=== PATIENT | male | born 1990 | race Caucasian/White ===

== ENCOUNTER 2021-03-15 21:35 | Emergency (ER) | payer OTHER, SELFPAY ==
--- NOTE | ~2021-03-15 | XR_ITS ---
EXAMINATION: RIGHT HAND AND WRIST. CLINICAL INFORMATION: Pain and swelling COMPARISON: None TECHNIQUE: 3 views FINDINGS: There is an old healed fracture right fifth metacarpal. A acute fracture was seen on the previous exam 04/18/2010 noted there is no acute fracture seen involving the fifth metacarpal at this time. No additional bony abnormality seen. There is mild soft tissue swelling along the ulnar aspect of the hand. XR/XR hand wrist RT IMPRESSION: No acute fracture or dislocation. Old healed fifth metacarpal fracture seen with mild soft tissue swelling.
[2021-03-15 21:37] VITALS: BP 148/93; PULSE 90; RESP 16; TEMP 36.8; O2SAT 97; BMI 34.7
--- NOTE | 2021-03-16 00:32 | ED_ITS ---
HPI - Extremity Problem General Chief complaint: Extremity Injury, Upper Stated complaint: hand infection? Time Seen by Provider: 03/16/21 00:12 Source: patient Mode of arrival: ambulatory Limitations: no limitations History of Present Illness HPI Narrative: Patient presents to the ED for right hand pain. Patient states yesterday a stove fell on his right hand and became swollen. Patient states having some abrasions. Patient up-to-date with tetanus. Related Data Previous Rx's Medication Instructions Recorded cephalexin 500 mg capsule 500 mg PO QID #28 cap 03/16/21 doxycycline hyclate 100 mg tablet 100 mg PO BID #14 tab 03/16/21 naproxen 500 mg tablet 500 mg PO BID PRN #20 tab 03/16/21 Allergies Allergy/AdvReac Type Severity Reaction Status Date / Time No Known Allergies Allergy Unverified 03/15/21 21:42 Review of Systems Constitutional: Constitutional: Reports as per HPI and Reports no additional constitutional complaints Eyes: Eyes: Reports as per HPI and Reports no additional eye complaints ENT: Reports system reviewed and no additional complaints, except as documented and Reports as per HPI Cardiovascular: Cardiovascular: Reports as per HPI and Reports no additional cardiovascular complaints Respiratory: Respiratory: Reports as per HPI and Reports no additional respiratory complaints Gastrointestinal: Gastrointestinal: Reports as per HPI and Reports no additional gastrointestinal complaints Genitourinary: Genitourinary: Reports no additional male genitourinary complaints and Reports as per HPI Musculoskeletal: Musculoskeletal: Reports no additional musculoskeletal complaints, Reports as per HPI and Reports arthralgias (Right hand) Neurologic: Reports system reviewed and no additional complaints, except as documented and Reports as per HPI Psychiatric: Psychiatric: Reports no additional psychiatric complaints and Reports as per HPI [facility] Past Medical History Medical History (Updated 03/16/21 @ 00:39 by DARSHAN Morrison) No known health problems Social History Social History Advance Directives: No Advance Directives Information Provided: No Physical Exam Vital Signs: Vital Signs: Last Vital Signs Temp 98.2 F 03/15/21 21:37 Pulse 90 03/15/21 21:37 Resp 16 03/15/21 21:37 BP 148/93 H 03/15/21 21:37 Pulse Ox 97 03/15/21 21:37 Body Mass Index 34.7 Const: General: cooperative, healthy appearing, comfortable, no acute distress, well developed, alert, awake and Physically active Orientation/consciousness: patient oriented x3 HENMT: Head: Yes normal to inspection, Yes No palpable skull fracture present, Yes normocephalic and Yes atraumatic Eyes: General: appearance normal, both eyes and all related structures Neck: Neck: Yes normal visual inspection, Yes full ROM, Yes no lymphadenopathy, Yes no meningeal signs, Yes trachea midline, Yes supple and No tender Chest: Chest palpation & inspection: normal inspection of the chest and normal palpation of entire chest wall Resp: Effort & Inspection: normal respiratory effort and able to speak in complete sentences Cardio: Jugular venous distension: no JVD Heart sounds: S1 normal heart sound present and S2 normal heart sound present GI: Inspection: Yes normal to inspection and No abdominal wall ecchymosis Palpation (GI): Soft to palpation, not firm, nontender and no guarding : General: No CVA tenderness and Yes no CVA tenderness Back/Spine/Pelvis: Back: no CVA tenderness, No CVA tenderness and No back tenderness Skin: General skin exam: no rashes or lesions noted and elasticity normal Neuro: General: patient oriented x3, gait normal, Normal light touch and pain sensation, no meningeal signs, CN's II-XI intact bilaterally and normal sensation to monofilament Extrem: Hand/finger images: 1. Positive for abrasion and swelling with erythema. Patient has complete range of motion of all fingers. Negative for any limitation of extension or flexion. Negative for any swelling or redness of palms. Rest of extremity negative for any swelling or redness. Vascular/motor/neuro exam intact 2. Positive for abrasion and swelling with erythema.Patient has complete range of motion of all fingers. Negative for any limitation of extension or flexion. Negative for any swelling or redness of palms. Rest of extremity negative for any swelling or redness. Vascular/motor/neuro exam intact Psych: Appearance: grossly normal, well kempt and not disheveled Course Course Course Narrative: Patient was sent for an x-ray Reevaluation(s) Reevaluation #1: Hand x-ray negative for any fractures. Not suspecting ten osynovitis or DVT. Not Suspecting lymphangitis. Negative for red streaks. Right upper extremity is not swollen except area of erythema near knuckles. Patient will be discharged with antibiotics and educated on warm compress. Contusion with mild cellulitis. Time: 00:37 MDM - Extremity (Nontraumatic) MDM Narrative Medical decision making narrative: Contusion/mild cellulitis Discharge Plan Discharge Clinical Impression: Contusion, Cellulitis Patient Disposition: Home, Self-Care Instructions: Cellulitis (ED), Contusion in Adults (ED), Warm Compress or Soak (ED) Additional Instructions: Return to the ED immediately for worsening swelling, inability to move hands, red streaks, worsening redness, fever, chills, arm swelling, chest pain, shortness of breath, bluish discoloration of fingertips, or any other concerning symptoms. Please follow-up with PCP Prescriptions: New cephalexin 500 mg capsule 500 mg PO QID Qty: 28 RF: 0 doxycycline hyclate 100 mg tablet 100 mg PO BID Qty: 14 RF: 0 naproxen 500 mg tablet 500 mg PO BID PRN (Reason: pain) Qty: 20 RF: 0 Stand Alone Forms: Work/School Release Interventions: ED Discharge Assessment Last Done: 03/16/21 00:56 Discharge Date/Time: 03/16/21 00:59 Print Language: Armenian
== END 2021-03-16 00:59 | disposition home or self-care (01) ==
PROVIDERS: Emergency Provider Internal Medicine
DX: S60.221A Contusion of right hand, initial encounter (principal); S60.511A Abrasion of right hand, initial encounter; L03.113 Cellulitis of right upper limb; W20.8XXA Other cause of strike by thrown, projected or falling object, initial encounter; Y93.9 Activity, unspecified; Y92.9 Unspecified place or not applicable; Y99.9 Unspecified external cause status
CPT/HCPCS: 73110; 73130; 99283

== ENCOUNTER 2021-05-28 09:47 | Emergency (ER) | payer OTHER, SELFPAY ==
--- NOTE | ~2021-05-28 | XR_ITS ---
EXAMINATION: XR SHOULDER, LEFT CLINICAL INFORMATION: Pain. COMPARISON: None TECHNIQUE: 3 views of the left shoulder. FINDINGS: The bones and soft tissues are normal. No fracture. Glenohumeral and acromioclavicular alignment is anatomic with normal joint space. No abnormal soft tissue calcifications. XR/XR shoulder LT min 2V IMPRESSION: Normal left shoulder.
[2021-05-28 09:49] VITALS: BP 153/98; PULSE 102; RESP 18; TEMP 36.8; O2SAT 99; BMI 32.7
--- NOTE | 2021-05-28 11:20 | ED.GENADULT ---
HPI - General Adult General Chief complaint: Extremity Injury, Lower Stated complaint: lt shoulder pain Time Seen by Provider: 05/28/21 11:20 Source: patient Mode of arrival: ambulatory Limitations: no limitations History of Present Illness HPI narrative: Three 1-year-old male is here today for complaints of left shoulder pain. 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 Patient reports that he hit his left upper arm and shoulder. Denies hitting head. Denies LOC. patient reports he was trying to work and is unable to have good ROM, pain with passive and active range of motions. Patient does not think that it is dislocated however pain is to his left shoulder left upper back and neck. Patient denies any numbness, tingling, decreased sensation. Patient denies any bruising. Onset (ago): day(s) Location: left (Shoulder) Radiation: non-radiation Severity: moderate Quality: sharp Related Data Previous Rx's Medication Instructions Recorded cephalexin 500 mg capsule 500 mg PO QID #28 cap 03/16/21 doxycycline hyclate 100 mg tablet 100 mg PO BID #14 tab 03/16/21 naproxen 500 mg tablet 500 mg PO BID PRN #20 tab 03/16/21 cyclobenzaprine 10 mg tablet 10 mg PO QAM PRN #5 tab 05/28/21 diazepam 5 mg tablet (Valium) 5 mg PO BEDTIME PRN #5 tab 05/28/21 oxycodone 5 mg tablet 5 mg PO Q4-6H PRN #5 tab 05/28/21 Allergies Allergy/AdvReac Type Severity Reaction Status Date / Time No Known Allergies Allergy Unverified 03/15/21 21:42 Review of Systems Review of Systems: Constitutional : No Weight loss, No Fever, No Chills, No Night Sweats, No Fatigue, No Malaise ENT/Mouth : No Hearing loss, No Ear Pain, No Nasal Congestion, No Sinus Pain, No Hoarseness, No sore throat, No Rhinorrhea, No Swallowing Difficulty Eyes: No Eye Pain, No Swelling, No Redness, No Foreign Body, No Discharge, No Vision Changes Cardiovascular : No Chest Pain, No SOB, No Dyspnea on Exertion, No Orthopnea, No Edema, No Palpitations Respiratory : No Cough, No Sputum, No Wheezing, No Smoke Exposure, No Dyspnea Gastrointestinal : No Nausea, No Vomiting, No Diarrhea, No Constipation, No abdominal Pain, No Hematochezia, No Melena Genitourinary : no irregular bleeding, No Dysuria, No Urinary Frequency, No Hematuria, No Urinary Incontinence, No Urgency, No Flank Pain, No Urinary Flow Changes, No Hesitancy Musculoskeletal : joint pain, shoulder pain, No Myalgias, No Joint Swelling Skin : No Skin Lesions, No rash Neuro : No Weakness, No Numbness, No Paresthesias, No Loss of Consciousness, No Dizziness, No Headache Psych : No Anxiety/Panic, No Depression, No SI/HI/AH/VH, No Social Issues, Yes all other systems are reviewed and are negative PMFSH Past Medical History Medical History (Updated 05/28/21 @ 12:[address] [facility]) No known health problems Social History Social History Advance Directives: No Physical Exam Vital Signs: Vital Signs: Last Vital Signs Temp 98.2 F 05/28/21 09:49 Pulse 102 H 05/28/21 09:49 Resp 18 05/28/21 09:49 BP 153/98 H 05/28/21 09:49 Pulse Ox 99 05/28/21 09:49 Body Mass Index 32.7 Const: General: healthy appearing, no acute distress and well developed Nutritional Appearance: well nourished Orientation/consciousness: patient oriented x3 HENMT: Head: Yes normocephalic and Yes atraumatic Neck: Neck: Yes normal visual inspection, Yes full ROM and Yes trachea midline Thyroid: Thyroid normal Resp: Effort & Inspection: normal respiratory effort and able to speak in complete sentences Auscultation: clear to auscultation bilaterally Cardio: Rate: regular rate Rhythm: regular rhythm GI: Inspection: Yes normal to inspection and No distended Palpation (GI): No hepatosplenomegaly present Auscultation: normal bowel sounds : General: Yes no CVA tenderness Back/Spine/Pelvis: Back: no CVA tenderness Cervical Spine: normal cervical lordosis Thoracic/Lumbar Spine: thoracic and lumbar spine normal to inspection Skin: General skin exam: elasticity normal, turgor normal and dry skin Neuro: General: patient oriented x3 Extrem: Other: Left shoulder pain, tenderness to trapezius muscle. Right upper extremity: normal to inspection, full ROM and normal capillary refill Left upper extremity: normal to inspection, full ROM and normal capillary refill Right lower extremity: normal to inspection, full ROM and normal capillary refill Left lower extremity: normal to inspection, full ROM and normal capillary refill Course Course Course Narrative: 30-year-old male is here today for complaints of left shoulder pain after sustaining fall and hitting his left upper arm. 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 Patient denies hitting had. No paresthesia, no neurological symptoms. Tenderness to left trapezius muscle. Will x-ray and medicate patient for pain. Cyclobenzaprine will be given for muscle tightness. Reevaluation(s) Reevaluation #1: X-ray negative for any acute findings. Patient reports he is feeling better after cyclobenzaprine will send him home with muscle relaxants and oxycodone. He will follow-up with PCP. Patient reports that he does not have a primary care provider and was instructed to call his insurance company to see who is assigned for him. However patient can return to emergency department if he will have worsening symptoms or any other additional concerning symptoms. Discharge Plan Discharge Clinical Impression: Acute shoulder pain Qualifiers: Laterality: left Qualified Code(s): M25.512 - Pain in left shoulder Patient Disposition: Home, Self-Care Instructions: Shoulder Pain (ED) Additional Instructions: You were seen here today for left shoulder pain. Your x-ray is negative for any fracture. You most likely have a muscle sprain. Please take muscle relaxers as ordered. Please do not drink alcohol or and do not drive while taking this medication. You murmur returning to emergency department if your symptoms will get worse or if you experience any additional concerning symptoms. Prescriptions: New cyclobenzaprine 10 mg tablet 10 mg PO QAM PRN (Reason: muscle spasm) Qty: 5 RF: 0 diazepam [Valium] 5 mg tablet 5 mg PO BEDTIME PRN (Reason: muscle spasm) Qty: 5 RF: 0 oxycodone 5 mg tablet 5 mg PO Q4-6H PRN (Reason: pain) Qty: 5 RF: 0 No Action cephalexin 500 mg capsule 500 mg PO QID Qty: 28 RF: 0 doxycycline hyclate 100 mg tablet 100 mg PO BID Qty: 14 RF: 0 naproxen 500 mg tablet 500 mg PO BID PRN (Reason: pain) Qty: 20 RF: 0 Referrals: Jeff Avila MD [Physician] - 2 days Stand Alone Forms: Work/School Release Interventions: ED Discharge Assessment Last Done: 05/28/21 12:29 Discharge Date/Time: 05/28/21 12:32
[2021-05-28] MEDS: Cyclobenzaprine HCl 10 MG TABLET PO (11:41)
== END 2021-05-28 12:32 | disposition home or self-care (01) ==
PROVIDERS: Emergency Provider Emergency Medicine
DX: M25.512 Pain in left shoulder (principal); Z79.899 Other long term (current) drug therapy
CPT/HCPCS: 73030; 99283

== ENCOUNTER 2021-06-22 02:59 | Emergency (ER) | payer OTHER, SELFPAY ==
[2021-06-22 03:06] VITALS: BP 142/89; PULSE 101; RESP 18; TEMP 36.1; O2SAT 98; BMI 33.1
--- NOTE | 2021-06-22 03:44 | ED_ITS ---
HPI - Eye Problem General Chief complaint: Eye Problems Stated complaint: possible contact stuck in eye Time Seen by Provider: 06/22/21 03:44 Source: patient Mode of arrival: ambulatory History of Present Illness HPI Narrative: 30-year-old male who presents with complaints of possible retained contact in the left eye as he states it is very irritated and feels mildly swollen as though ?something is in my eye?. He states that he fell asl eep with his contacts in place and when he awoke he took the contact out of his right eye and then felt as though the contacted left eye got lodged. Related Data Previous Rx's Medication Instructions Recorded cephalexin 500 mg capsule 500 mg PO QID #28 cap 03/16/21 doxycycline hyclate 100 mg tablet 100 mg PO BID #14 tab 03/16/21 naproxen 500 mg tablet 500 mg PO BID PRN #20 tab 03/16/21 cyclobenzaprine 10 mg tablet 10 mg PO QAM PRN #5 tab 05/28/21 diazepam 5 mg tablet (Valium) 5 mg PO BEDTIME PRN #5 tab 05/28/21 oxycodone 5 mg tablet 5 mg PO Q4-6H PRN #5 tab 05/28/21 ketorolac 0.4 % eye drops 1 drp OPHTHALMIC (EYE) QID 2 Days 06/22/21 #5 ml levofloxacin 0.5 % eye drops See Rx Instructions .ROUTE 06/22/21 .COMPLEX #5 ml Allergies Allergy/AdvReac Type Severity Reaction Status Date / Time No Known Allergies Allergy Unverified 03/15/21 21:42 Review of Systems Review of Systems: Pertinent positives and negatives as stated in HPI 10 point review of systems is otherwise negative. PMFSH Past Medical History Source: nursing notes reviewed Medical History No known health problems Social History Social History Advance Directives: No Advance Directives Information Provided: Yes Physical Exam Vital Signs: Vital Signs: Last Vital Signs Temp 97 F 06/22/21 03:06 Pulse 101 H 06/22/21 03:06 Resp 18 06/22/21 03:06 BP 142/89 H 06/22/21 03:06 Pulse Ox 98 06/22/21 03:06 Body Mass Index 33.1 VITAL SIGNS: Reviewed. GENERAL: Well developed, well nourished, in no acute distress. HEAD: Normocephalic/atraumatic EYES: PERRLA, EOMI, significant conjunctival injection to the left eye with some noted left upper lid swelling without erythema or induration. Significant attempts made to evaluate for retained contact without success. OROPHARYNX: no oral lesions noted, posterior pharynx clear LUNGS: Normal breath sounds. SpO2<98> CARDIOVASCULAR: Regular rate and rhythm without noted murmurs ABDOMEN: Soft, non-tender, non-distended with bowel sounds. Course Course Course Narrative: 30-year-old male with history and clinical presentation suggestive of possible corneal abrasion with the contact since no contact was identified after thorough examination. It was explained the patient that there was still the possibility that the contact had been retained and he was strongly encouraged to follow-up with an eye doctor. In the meantime, patient was placed on antibiotics as well as analgesia for the eye. He was discharged home in stable condition. Discharge Plan Discharge Clinical Impression: Corneal abrasion Patient Disposition: Home, Self-Care Instructions: Corneal Abrasion (ED) Additional Instructions: Follow-up with your eye doctor for re-evaluation Prescriptions: New ketorolac 0.4 % drops 1 drp ophthalmic (eye) QID 2 Days Qty: 5 RF: 0 levofloxacin 0.5 % drops See Rx Instructions .ROUTE .COMPLEX Qty: 5 RF: 0 No Action cephalexin 500 mg capsule 500 mg PO QID Qty: 28 RF: 0 doxycycline hyclate 100 mg tablet 100 mg PO BID Qty: 14 RF: 0 naproxen 500 mg tablet 500 mg PO BID PRN (Reason: pain) Qty: 20 RF: 0 cyclobenzaprine 10 mg tablet 10 mg PO QAM PRN (Reason: muscle spasm) Qty: 5 RF: 0 diazepam [Valium] 5 mg tablet 5 mg PO BEDTIME PRN (Reason: muscle spasm) Qty: 5 RF: 0 oxycodone 5 mg tablet 5 mg PO Q4-6H PRN (Reason: pain) Qty: 5 RF: 0 Interventions: ED Discharge Assessment Last Done: 06/22/21 04:01 Discharge Date/Time: 06/22/21 04:02
== END 2021-06-22 04:02 | disposition home or self-care (01) ==
PROVIDERS: Emergency Provider Student in an Organized Health Care Education/Training Program
DX: H18.822 Corneal disorder due to contact lens, left eye (principal)
CPT/HCPCS: 99282; 99283

== ENCOUNTER 2021-12-05 10:03 | Emergency (ER) | payer OTHER, SELFPAY ==
--- NOTE | ~2021-12-05 | XR_ITS ---
EXAMINATION: XR ELBOW, LEFT. XR FOREARM, LEFT. XR WRIST, LEFT. CLINICAL INFORMATION: Fall with pain COMPARISON: None TECHNIQUE: 4 views of the left elbow. AP and lateral views of the left forearm. 4 views of the left wrist. FINDINGS: Left elbow: Normal alignment. No fracture is demonstrated. Moderate degenerative spurring at the anteromedial aspect of the ulna. There is a small joint effusion. Left forearm: Normal alignment with no fracture. No radiopaque foreign body. Left wrist: Normal alignment with no fracture. Dorsal soft tissue swelling. XR/XR elbow LT min 3V IMPRESSION: Left elbow: There are mild degenerative changes of the left elbow joint with a small joint effusion. No fracture is evident. In the setting of trauma, an elbow joint effusion could warrant follow-up radiographs or additional imaging if symptoms persist. Left forearm: No fracture. Left wrist: Normal alignment with no fracture. Dorsal soft tissue swelling.
--- NOTE | ~2021-12-05 | XR_ITS ---
EXAMINATION: XR ELBOW, LEFT. XR FOREARM, LEFT. XR WRIST, LEFT. CLINICAL INFORMATION: Fall with pain COMPARISON: None TECHNIQUE: 4 views of the left elbow. AP and lateral views of the left forearm. 4 views of the left wrist. FINDINGS: Left elbow: Normal alignment. No fracture is demonstrated. Moderate degenerative spurring at the anteromedial aspect of the ulna. There is a small joint effusion. Left forearm: Normal alignment with no fracture. No radiopaque foreign body. Left wrist: Normal alignment with no fracture. Dorsal soft tissue swelling. XR/XR forearm LT 2V IMPRESSION: Left elbow: There are mild degenerative changes of the left elbow joint with a small joint effusion. No fracture is evident. In the setting of trauma, an elbow joint effusion could warrant follow-up radiographs or additional imaging if symptoms persist. Left forearm: No fracture. Left wrist: Normal alignment with no fracture. Dorsal soft tissue swelling.
--- NOTE | ~2021-12-05 | XR_ITS ---
EXAMINATION: XR ELBOW, LEFT. XR FOREARM, LEFT. XR WRIST, LEFT. CLINICAL INFORMATION: Fall with pain COMPARISON: None TECHNIQUE: 4 views of the left elbow. AP and lateral views of the left forearm. 4 views of the left wrist. FINDINGS: Left elbow: Normal alignment. No fracture is demonstrated. Moderate degenerative spurring at the anteromedial aspect of the ulna. There is a small joint effusion. Left forearm: Normal alignment with no fracture. No radiopaque foreign body. Left wrist: Normal alignment with no fracture. Dorsal soft tissue swelling. XR/XR wrist LT min 3V IMPRESSION: Left elbow: There are mild degenerative changes of the left elbow joint with a small joint effusion. No fracture is evident. In the setting of trauma, an elbow joint effusion could warrant follow-up radiographs or additional imaging if symptoms persist. Left forearm: No fracture. Left wrist: Normal alignment with no fracture. Dorsal soft tissue swelling.
[2021-12-05 10:43] VITALS: BP 168/95; PULSE 92; RESP 14; O2SAT 98; BMI 34.7
--- NOTE | 2021-12-05 11:28 | PC.NURSE ---
patient reports falling off skate board and bracing his fall with his left hand , both wrist and hand swollen . reports limited mobility of wrist , fingers and elbow.patient reports an increase level in pain . no bruising noted.
--- NOTE | 2021-12-05 12:20 | ED.GENADULT ---
HPI - General Adult General Chief complaint: Upper Respiratory Symptoms Stated complaint: wrist injury Time Seen by Provider: 12/05/21 11:36 Source: patient Mode of arrival: ambulatory History of Present Illness HPI narrative: 30-year-old male with no significant past medical history presenting to the ED complaining of left wrist and elbow pain s/p mechanical fall at [employer] yesterday. Reports FOOSH injury. Denies head trauma or LOC. Denies numbness, tingling, weakness Onset (ago): day(s) Related Data Previous Rx's Medication Instructions Recorded cephalexin 500 mg capsule 500 mg PO QID #28 cap 03/16/21 doxycycline hyclate 100 mg tablet 100 mg PO BID #14 tab 03/16/21 naproxen 500 mg tablet 500 mg PO BID PRN #20 tab 03/16/21 cyclobenzaprine 10 mg tablet 10 mg PO QAM PRN #5 tab 05/28/21 diazepam 5 mg tablet (Valium) 5 mg PO BEDTIME PRN #5 tab 05/28/21 oxycodone 5 mg tablet 5 mg PO Q4-6H PRN #5 tab 05/28/21 ketorolac 0.4 % eye drops 1 drp OPHTHALMIC (EYE) QID 2 Days 06/22/21 #5 ml levofloxacin 0.5 % eye drops See Rx Instructions .ROUTE 06/22/21 .COMPLEX #5 ml Allergies Allergy/AdvReac Type Severity Reaction Status Date / Time No Known Allergies Allergy Unverified 03/15/21 21:42 Review of Systems Review of Systems: Constitutional: No Fever, No Chills ENT/Mouth: No Ear Pain, No Nasal Congestion, No sore throat, No Rhinorrhea, No Swallowing Difficulty Cardiovascular: No Chest Pain, No SOB Respiratory: No Cough, No Sputum Gastrointestinal: No Nausea, No Vomiting, No Diarrhea, No Constipation, No Abdominal pain Genitourinary:, No Dysuria, No Urinary Frequency, No Hematuria, No Flank Pain Musculoskeletal: + joint pain, No Myalgias, + Joint Swelling Skin: No Skin Lesions, No rash Neuro: No Weakness, No Numbness, No Paresthesias Yes all other systems are reviewed and are negative PMFSH Past Medical History Attestation statement: The following information was validated with the patient. Medical History No known health problems Social History Social History Advance Directives: No Advance Directives Information Provided: No Physical Exam ED Vital Signs: Vital Signs - 24 hr 12/05/21 10:43 Pulse Rate 92 Respiratory Rate 14 Blood Pressure 168/95 H Pulse Oximetry 98 BMI result Body Mass Index 34.7 Const General: cooperative, healthy appearing and no acute distress Orientation/consciousness: patient oriented x3 Limitations: no limitations HENMT Head: Yes normal to inspection and Yes atraumatic Ears: hearing grossly normal bilaterally General nose exam: Normal external nose present Face and sinus: Yes normal facial exam Eyes General: appearance normal, both eyes and all related structures EOM: EOMs intact bilaterally Neck Neck: Yes normal visual inspection and Yes no meningeal signs Resp Effort & Inspection: normal respiratory effort and no respiratory distress Cardio Rate: regular rate Heart sounds: S1 normal heart sound present and S2 normal heart sound present Peripheral pulses: radial pulses present and ulnar radial pulses present Skin Rashes: no rashes Wounds: no wounds Neuro General: patient oriented x3, tone normal and no meningeal signs Gait exam (Neuro): Normal gait present Extrem Other: Left hand/wrist with noted swelling. +ttp to left elbow with decreased pronation/supination and flexion secondary to pain. +ttp to left wrist, + snuffbox tenderness. Digits nontender. Thumb to pinky opposition slightly limited secondary to pain/swelling. Neurovascularly intact. Sensation intact to light touch. Course Course Course Narrative: XR elbow LT min 3V/XR forearm LT 2V/XR wrist LT min 3V IMPRESSION: Left elbow: There are mild degenerative changes of the left elbow joint with a small joint effusion. No fracture is evident.? In the setting of trauma, an elbow joint effusion could warrant follow-up radiographs or additional imaging if symptoms persist. ? Left forearm: No fracture. ? Left wrist: Normal alignment with no fracture. Dorsal soft tissue swelling. >> results discussed with patient. Concern for possible scaphoid fracture and radial head fracture. Patient placed in thumb spica splint and sling to follow-up with orthopedic Medical Decision Making MDM Narrative Medical decision making narrative: 30-year-old male with no significant past medical history presenting to the ED complaining of left wrist and elbow pain s/p mechanical fall at [employer] yesterday. On exam vital signs stable, in ED, physical exam as above. Concern for fracture versus sprain. Plan: X-rays Medical Records Medical records reviewed: Yes I reviewed the patient's medical records. Lab Data Lab results reviewed: Yes I reviewed the patient's lab results. Discharge Plan Discharge Clinical Impression: Injury of wrist, left, Elbow injury Patient Disposition: Home, Self-Care Instructions: Splint Care (ED), How to Use a Sling (ED) Additional Instructions: Your x-rays do not show any fractures however do show a small elbow joint effusion. There is concern you have a fracture that is not seen on these x-rays. Please wear sling and splint until you see the wan support specialist. Call today to make an appointment for 1 week. Ice and elevate. Take ibuprofen and Tylenol for pain. If area becomes weak, numb, pain comes unbearable please return to the ED Prescriptions: No Action cephalexin 500 mg capsule 500 mg PO QID Qty: 28 0RF doxycycline hyclate 100 mg tablet 100 mg PO BID Qty: 14 0RF naproxen 500 mg tablet 500 mg PO BID PRN (Reason: pain) Qty: 20 0RF cyclobenzaprine 10 mg tablet 10 mg PO QAM PRN (Reason: muscle spasm) Qty: 5 0RF diazepam [Valium] 5 mg tablet 5 mg PO BEDTIME PRN (Reason: muscle spasm) Qty: 5 0RF oxycodone 5 mg tablet 5 mg PO Q4-6H PRN (Reason: pain) Qty: 5 0RF Rx Instructions: Patient may request fewer tablets than prescribed ketorolac 0.4 % drops 1 drp ophthalmic (eye) QID 2 Days Qty: 5 0RF levofloxacin 0.5 % drops See Rx Instructions .ROUTE .COMPLEX Qty: 5 0RF Rx Instructions: put 1-2 drps in affected eye(s) every 2hr up to 8 times/day x2days; then 4 times/day x5days Referrals: Mendoza Mcconnell MD [Physician] - 1 week
== END 2021-12-05 12:47 | disposition home or self-care (01) ==
PROVIDERS: Emergency Provider Emergency Medicine
DX: S69.92XA Unspecified injury of left wrist, hand and finger(s), initial encounter (principal); M25.532 Pain in left wrist; M25.522 Pain in left elbow; W01.0XXA Fall on same level from slipping, tripping and stumbling without subsequent striking against object, initial encounter; Y93.9 Activity, unspecified; Y92.9 Unspecified place or not applicable; Y99.9 Unspecified external cause status; Z79.899 Other long term (current) drug therapy
CPT/HCPCS: 73080; 73090; 73110; 99283; 99284

== ENCOUNTER 2021-12-27 07:38 | Outpatient (REF) | payer OTHER, SELFPAY ==
--- NOTE | ~2021-12-27 | XR_ITS ---
EXAMINATION: LEFT WRIST X-RAY CLINICAL INFORMATION: Pain COMPARISON: Previous x-ray 12/05/2021 TECHNIQUE: 4 views of the left wrist FINDINGS: No fracture or dislocation. The scapholunate distance appears widened on the scaphoid view. There is soft tissue calcification adjacent to the radial styloid region of the radiocarpal joint. Joint spaces are otherwise normal. Soft tissues are normal. XR/XR wrist LT w scaphoid IMPRESSION: Question widened scapholunate joint. New soft tissue tissue calcification adjacent to the radial styloid the radial carpal joint.
== END 2021-12-27 07:39 | disposition home or self-care (01) ==
LOC: HO.HOSX 07:38
PROVIDERS: Visit Provider Physician Assistant
DX: S62.002A Unspecified fracture of navicular [scaphoid] bone of left wrist, initial encounter for closed fracture (principal); S63.502A Unspecified sprain of left wrist, initial encounter
CPT/HCPCS: 73110; 99202

== ENCOUNTER 2023-06-13 09:26 | Emergency (ER) | payer OTHER, SELFPAY ==
[2023-06-13 09:34] VITALS: BP 142/110; PULSE 100; RESP 18; TEMP 36.1; O2SAT 97; BMI 35.3
[2023-06-13 10:00] VITALS: BP 167/125; PULSE 93; RESP 18; TEMP 36.6; O2SAT 97
--- NOTE | 2023-06-13 11:34 | ED.BACK ---
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 There is no numbness or weakness or tingling there is no trouble ambulating there is no change to bowel or bladder there is no incontinence there is no dysuria there is no IV drug use there is no fever, no fall no abdominal pain no chest Related Data Previous Rx's Medication Instructions Recorded cephalexin 500 mg capsule 500 mg PO QID #28 caps 03/16/21 doxycycline hyclate 100 mg tablet 100 mg PO BID #14 tabs 03/16/21 naproxen 500 mg tablet 500 mg PO BID PRN pain #20 tabs 03/16/21 cyclobenzaprine 10 mg tablet 10 mg PO QAM PRN muscle spasm #5 05/28/21 tabs diazepam 5 mg tablet (Valium) 5 mg PO BEDTIME PRN muscle spasm 05/28/21 #5 tabs oxycodone 5 mg tablet 5 mg PO Q4-6H PRN pain #5 tabs 05/28/21 ketorolac 0.4 % eye drops 1 drp ophthalmic (eye) QID 2 days 06/22/21 #5 mL levofloxacin 0.5 % eye drops See Rx Instructions ophthalmic 06/22/21 (eye) .COMPLEX #5 mL acetaminophen 500 mg tablet 1,000 mg (2 x 500 mg) PO QID PRN 06/13/23 pain #30 tabs cyclobenzaprine 5 mg tablet 5 mg PO TID PRN muscle spasm #14 06/13/23 tabs ibuprofen 600 mg tablet 600 mg PO Q6H PRN pain #20 tabs 06/13/23 oxycodone 5 mg tablet 5 mg PO Q6H PRN pain #14 tabs 06/13/23 prednisone 20 mg tablet 60 mg (3 x 20 mg) PO DAILY 3 days 06/13/23 #9 tabs Allergies Allergy/AdvReac Type Severity Reaction Status Date / Time No Known Allergies Allergy Verified 06/13/23 09:39 [facility] Past Medical History Source: nursing notes reviewed Medical History No known health problems Social History Social History Advance Directives: No Advance Directives Information Provided: No Physical Exam Vital Signs: Vital Signs: Last Vital Signs Temp 97.9 F 06/13/23 10:00 Pulse 93 06/13/23 10:00 Resp 18 06/13/23 10:00 BP 167/125 H 06/13/23 10:00 Pulse Ox 97 06/13/23 10:00 O2 Del Method Room Air 06/13/23 10:00 BMI result Body Mass Index 35.3 general appearance is uncomfortable but no acute distress Head is normocephalic atraumatic Neck is supple Respiratory no distress Chest wall nontender Abdomen is soft nontender The back had left-sided lower lumbar tenderness, no focal bony tenderness, skin of the back was normal with no redness or swelling or rash Extremities range of motion x4 Neuro gait and balance are normal, motor is 5/5 x4, sensation is intact and symmetrical Course Course Course Narrative: patient with musculoskeletal back pain radiating into the buttocks and upper thigh on the left side, no incontinence no muscle weakness He is treated with steroid to possibly reduce inflammation around the nerve as well as analgesics and muscle relaxer and discharge Discharge Plan Discharge Clinical Impression: Left lumbar radiculopathy Patient Disposition: Home, Self-Care Additional Instructions: back pain is usually self-limited We are trying prednisone which is a steroid which may reduce inflammation around the nerve in help with the pain shooting down her thigh Return any time for any worse condition or any concerns If needed follow with primary care doctor Prescriptions: New ibuprofen 600 mg tablet 600 mg PO Q6H PRN (Reason: pain) Qty: 20 0RF acetaminophen 500 mg tablet 1,000 mg PO QID PRN (Reason: pain) Qty: 30 0RF cyclobenzaprine 5 mg tablet 5 mg PO TID PRN (Reason: muscle spasm) Qty: 14 0RF prednisone 20 mg tablet 60 mg PO DAILY 3 Days Qty: 9 0RF oxycodone 5 mg tablet 5 mg PO Q6H PRN (Reason: pain) Qty: 14 0RF Rx Instructions: Partial Fill upon patient request. No Action cephalexin 500 mg capsule 500 mg PO QID Qty: 28 0RF doxycycline hyclate 100 mg tablet 100 mg PO BID Qty: 14 0RF naproxen 500 mg tablet 500 mg PO BID PRN (Reason: pain) Qty: 20 0RF cyclobenzaprine 10 mg tablet 10 mg PO QAM PRN (Reason: muscle spasm) Qty: 5 0RF diazepam [Valium] 5 mg tablet 5 mg PO BEDTIME PRN (Reason: muscle spasm) Qty: 5 0RF oxycodone 5 mg tablet 5 mg PO Q4-6H PRN (Reason: pain) Qty: 5 0RF Rx Instructions: Patient may request fewer tablets than prescribed ketorolac 0.4 % drops 1 drp ophthalmic (eye) QID 2 Days Qty: 5 0RF levofloxacin 0.5 % drops See Rx Instructions .ROUTE .COMPLEX Qty: 5 0RF Rx Instructions: put 1-2 drps in affected eye(s) every 2hr up to 8 times/day x2days; then 4 times/day x5days Stand Alone Forms: Work/School Release
[2023-06-13] MEDS: Ibuprofen 600 MG TABLET PO (11:43)
[2023-06-13] MEDS: Acetaminophen 325 MG TABLET 975 MG PO (11:43)
== END 2023-06-13 11:56 | disposition home or self-care (01) ==
PROVIDERS: Emergency Provider Student in an Organized Health Care Education/Training Program
DX: M54.16 Radiculopathy, lumbar region (principal); M54.50 Low back pain, unspecified
CPT/HCPCS: 99283; 99284

== ENCOUNTER 2023-08-28 18:18 | Emergency (ER) | payer OTHER, SELFPAY ==
[2023-08-28 18:22] VITALS: BP 153/98; PULSE 110; RESP 18; TEMP 36.3; O2SAT 97; BMI 33.6
--- NOTE | 2023-08-28 18:28 | ED.WOUNDLAC ---
HPI - Wound/Laceration General Chief Complaint: Wound/Laceration Stated Complaint: cut side rt hand w/knife putting away dishes Time Seen by Provider: 08/29/23 00:18 Related Data Previous Rx's Medication Instructions Recorded oxycodone-acetaminophen 5 mg-325 1 tab PO Q6H PRN pain #30 tabs 09/06/23 mg tablet Allergies Allergy/AdvReac Type Severity Reaction Status Date / Time No Known Allergies Allergy Verified 09/06/23 06:38 PMFSH Past Medical History Medical History Smoker Asthma Surgical History History of hand surgery Social History Social History Patient Tobacco Use Status: Current everyday Tobacco user Tobacco use type: Cigarette Cigarettes Per Day: 10 Physical Exam Vital Signs: Vital Signs: Last Vital Signs Temp 97.4 F 08/28/23 18:22 Pulse 110 H 08/28/23 18:22 Resp 18 08/28/23 18:22 BP 153/98 H 08/28/23 18:22 Pulse Ox 97 08/28/23 18:22 O2 Del Method Room Air 08/28/23 18:22 BMI result Body Mass Index 33.6 Course Course Course Narrative: RME: 32 year-old M w/ PMHx presenting to the ED c/o laceration to right pain giving her s/p putting dishes/knife away [employer]. Tetanus up-to-date. Reports decreased mobility to pinky finger. 2 cm laceration noted to right 5th digit palmar aspect between MCP and PIP. Decreased ROM. Active bleeding Dressing applied in triage Full HPI, ROS and PE to be performed by primary ED provider. Discharge Plan Discharge Clinical Impression: Laceration Patient Disposition: Left W/O Completing Treatment Prescriptions: No Action oxycodone-acetaminophen 5-325 mg tablet 1 tab PO Q6H PRN (Reason: pain) Qty: 30 0RF Rx Instructions: Partial Fill upon patient request. Discharge Date/Time: 08/29/23 01:13
--- NOTE | 2023-08-28 23:55 | PC.NURSE ---
bleeding controlled. soaking lac in sterile water/iodine to clean area.
== END 2023-08-29 01:13 | disposition left against medical advice (07) ==
PROVIDERS: Emergency Provider Emergency Medicine
DX: S61.411A Laceration without foreign body of right hand, initial encounter (principal); W26.0XXA Contact with knife, initial encounter; Y93.G1 Activity, food preparation and clean up; Y92.020 Kitchen in mobile home as the place of occurrence of the external cause; Y99.9 Unspecified external cause status
CPT/HCPCS: 99282

== ENCOUNTER 2023-08-31 07:34 | Outpatient (REF) | payer OTHER, SELFPAY ==
--- NOTE | ~2023-08-31 | XR_ITS ---
EXAMINATION: XR HAND, RIGHT CLINICAL INFORMATION: Pain. COMPARISON: Radiographs dated 03/15/2021. TECHNIQUE: PA, lateral, and oblique views of the right hand. FINDINGS: The bones and soft tissues are normal. No acute fracture or dislocation is seen. There is an old, healed right fifth metacarpal fracture. Alignment is anatomic. Joint spaces are maintained. No erosions or soft tissue calcifications. XR/XR hand RT min 3V IMPRESSION: Unremarkable right hand.
== END 2023-08-31 07:35 | disposition home or self-care (01) ==
LOC: HO.HOSX 07:34
PROVIDERS: Visit Provider Physician Assistant
DX: S56.121A Laceration of flexor muscle, fascia and tendon of right index finger at forearm level, initial encounter (principal); S61.201A Unspecified open wound of left index finger without damage to nail, initial encounter; S64.496A Injury of digital nerve of right little finger, initial encounter
CPT/HCPCS: 73130; 99212

== ENCOUNTER 2023-08-31 07:54 | Outpatient (AMB) | payer OTHER, SELFPAY ==
--- NOTE | 2023-08-31 07:58 | MHC.OFFVIS ---
Intake Vital Signs 08/31/23 08:18 Height 6 ft 3 in Weight 268 lb BMI 33.5 Intake Visit Reasons: Newprob-RT hand wound/laceration-DOI 08/29/23 Intake Note: Trung is a 32 year old right hand dominant male who presents today for a evaluation of a laceration in his right pinky finger, DOI 08/29/23. Patient reports that he cut himself with a knife when he was putting dishes away. He states that he is unable to bend or move his right pinky finger. Allergies No Known Allergies Allergy (Verified 06/13/23 09:39) HPI Newprob-RT hand wound/laceration-DOI 08/29/23 HPI Details 32-year-old right hand dominant male who presents in the office today for an evaluation of a laceration on the right hand. The patient presented to the ED on 08/28/2023 status post attempting to put away dishes when a knife cut the palmar aspect of the right 5th digit between the MCP and PIP. The wound was dressed while in the ED. While in the office today the patient reported he cut himself with a knife when he was putting dishes away. He states he is unable to bend or move his right pinky finger. Patient has no known allergy history. Patient is not currently taking any medication. Patient has no significant medical history. Patient has no known surgical history. [facility] Medical History No known health problems Review of Systems Const All systems reviewed & are unremarkable except as noted in HPI and below Physical Exam Vital Signs: BMI result Body Mass Index 33.5 Const General: cooperative, healthy appearing and no acute distress Orientation/consciousness: patient oriented x3 HEENT Head: Yes normal to inspection, Yes normocephalic and Yes atraumatic Eyes General: appearance normal, both eyes and all related structures Neck Neck: Yes normal visual inspection and Yes no lymphadenopathy Resp Effort & Inspection: normal respiratory effort and able to speak in complete sentences Cardio Rate: regular rate Peripheral pulses: Peripheral pulses 2+ throughout GI Inspection: Yes normal to inspection Palpation (GI): Soft to palpation Skin General skin exam: no rashes or lesions noted Lesions: no lesions Rashes: no rashes Neuro General: patient oriented x3 Extrem Other: Right little finger: Laceration at the volar aspect of the proximal phalanx. Unable to flex the right little finger. Able to extend the right little finger. Dense numbness reported along the ulnar digital nerve distribution from the laceration site distally. Numbness and tingling on the radial digital nerve distribution. Laceration site is clean, dry, and intact. No surrounding erythema or drainage. No signs of infection. Capillary refill is brisk. Psych Mental Status: mental status grossly normal Assessment & Plan Assessment & Plan (1) Flexor tendon laceration of finger with open wound: Code(s): S56.129A - Laceration of flexor muscle, fascia and tendon of unspecified finger at forearm level, initial encounter; S61.209A - Unspecified open wound of unspecified finger without damage to nail, initial encounter Qualifiers: Encounter type: initial encounter Qualified Code(s): S56.129A - Laceration of flexor muscle, fascia and tendon of unspecified finger at forearm level, initial encounter; S61.209A - Unspecified open wound of unspecified finger without damage to nail, initial encounter (2) Injury of digital nerve of right little finger: Code(s): S64.496A - Injury of digital nerve of right little finger, initial encounter Qualifiers: Encounter type: initial encounter Qualified Code(s): S64.496A - Injury of digital nerve of right little finger, initial encounter Plan Mr. Le is a 32-year-old right hand dominant male who presents in the office today for an evaluation of a laceration on the right hand. The patient presented to the ED on 08/28/2023 status post attempting to put away dishes when a knife cut the palmar aspect of the right 5th digit between the MCP and PIP. The wound was dressed while in the ED. While in the office today the patient reported he cut himself with a knife when he was putting dishes away. He states he is unable to bend or move his right pinky finger. Patient has no known allergy history. Patient is not currently taking any medication. Patient has no significant medical history. Patient has no known surgical history. I discussed in detail the procedure and what to expect pre and post operatively. We discussed the risks, benefits and alternatives to the surgery as well as the rehabilitation course. The risks; which include, but are not limited to infection, bleeding, nerve injury, ongoing pain, swelling, and stiffness, perioperative risk of injury to bones and soft tissues, and blood clots. I have answered all questions and with their understanding they have consented to move forward with a right little finger flexor tendon repair with possible digital nerve repair. to be performed by Dr. Faby Martini. She was [place] Texted in her absence to be made aware of the scheduling of the surgical procedure. Follow up will be at the post operative appointment, or sooner if needed. X-rays of the right hand which were obtained while in the office today and were reviewed by me, Sandee Wade PA-C, revealed no acute fracture or dislocation. Orders: Orders XR hand RT min 3V Today M79.643 - Pain in unspecified hand Patient Instructions: Scribed for Sandee Wade PA-C by Sravanthi Lizama certified ophthalmic medical technician, on 08/31/2023 at 7:55 am, EST. Coding Level of Care Code New Pt Level 4 (20446) Diagnoses Flexor tendon laceration of finger with open wound, initial encounter S56.129A; S61.209A Encounter type: initial encounter Injury of digital nerve of right little finger, initial encounter S64.496A Encounter type: initial encounter
[2023-08-31 08:18] VITALS: BMI 33.5
== END 2023-08-31 08:43 | disposition home or self-care (01) ==
PROVIDERS: Visit Provider Physician Assistant
DX: S56.127A Laceration of flexor muscle, fascia and tendon of right little finger at forearm level, initial encounter (principal); S64.496A Injury of digital nerve of right little finger, initial encounter; W26.0XXA Contact with knife, initial encounter
CPT/HCPCS: 99214

== ENCOUNTER → 2023-09-03 08:09 | Day surgery (SDC) | payer OTHER, SELFPAY ==
[2023-09-03 09:28] VITALS: BMI 33.9
--- NOTE | 2023-09-03 09:44 | PC.NURSE ---
patient states he did cocaine on sunday and does no other street drugs. md edwards and joelle aware. ok to proceed.
[2023-09-03 09:45] VITALS: BP 149/104; PULSE 97; RESP 16; TEMP 36.2; O2SAT 96
--- NOTE | 2023-09-03 10:00 | PC.NURSE ---
patient attemtpting to give us a urine sample per md velasquez.
--- NOTE | 2023-09-03 11:16 | PC.NURSE ---
md velasquez by bedside revaluating patient. patient unable to give a urine sample even after bolus of fluids 750ml.
--- NOTE | 2023-09-03 11:29 | PC.NURSE ---
patient obtained urine sample and sent to the lab.
[2023-09-03 11:45] LABS: Amphetamine Screen Urine Not Detected (Not Detect); Barbiturates, Urine Not Detected (Not Detect); Benzodiazepines Screen Urine Not Detected (Not Detect); Cannabinoid Screen Urine Not Detected (Not Detect); Cocaine Screen Urine POSITIVE (Not Detect); Fentanyl, urine Not Detected (Not Detect); Opiate Screen Urine Not Detected (Not Detect); Phencyclidine Screen Urine Not Detected (Not Detect)
--- NOTE | 2023-09-03 13:01 | PC.NURSE ---
iv removed. md velasquez cancelled procedure. patient aware of plan of care.
--- NOTE | 2023-09-03 13:07 | PC.NURSE ---
patient cancelled per md velasquez. aware of plan of care. iv removed. to be rescheduled for . positive cocaine.
== END ==
PROVIDERS: Visit Provider Orthopaedic Surgery
DX: S64.496A Injury of digital nerve of right little finger, initial encounter (principal); S56.129A Laceration of flexor muscle, fascia and tendon of unspecified finger at forearm level, initial encounter; S61.209A Unspecified open wound of unspecified finger without damage to nail, initial encounter; X58.XXXA Exposure to other specified factors, initial encounter; Z53.09 Procedure and treatment not carried out because of other contraindication; F14.90 Cocaine use, unspecified, uncomplicated
CPT/HCPCS: 80307; J0665; J1100; J2250; J2371; J2405; J2704; J2795; J3010

== ENCOUNTER 2023-09-06 05:43 | Day surgery (SDC) | payer OTHER, SELFPAY ==
[2023-09-06] VITALS (7 sets, daily range): BP systolic 105–143; BP diastolic 66–98; PULSE 98–112; RESP 16–18; TEMP 36.1–36.8; O2SAT 94–96; BMI 34.2
[2023-09-06] MEDS: Lactated Ringers 1,000 ML 80 ML IVCONT (06:41)
[2023-09-06 06:43] LABS: Amphetamine Screen Urine Not Detected (Not Detect); Barbiturates, Urine Not Detected (Not Detect); Benzodiazepines Screen Urine Not Detected (Not Detect); Cannabinoid Screen Urine Not Detected (Not Detect); Cocaine Screen Urine Not Detected (Not Detect); Fentanyl, urine Not Detected (Not Detect); Opiate Screen Urine Not Detected (Not Detect); Phencyclidine Screen Urine Not Detected (Not Detect)
--- NOTE | 2023-09-06 07:57 | P.HPSUR_ITS ---
Pre-Procedural Eval Section A - 24 Hr Update-Section A only Date of Service: 09/06/23 The patient is an INPATIENT: No Changes since office visit: No Cold of Flu in the past 2 weeks, No New Medical Problems, No Changes in Medication and No Patient answered all questions The patient has been examined within 24 hours of the surgical procedure. The History & Physical has been completed within 30 days and I have reviewed it.: Yes Section B - Complete if H&P > 30 days Chief Complaint: Laceration of flexor muscle,digital nerve little Allergies: Allergies Allergy/AdvReac Type Severity Reaction Status Date / Time No Known Allergies Allergy Verified 09/06/23 06:38 Exam Exam Comment: The patient was alert oriented and in no acute distress. He has an obliquely oriented but roughly transverse laceration across the volar aspect of the right small finger proximal phalanx. The wound is healing with no evidence of infection. He has no active flexion at the right small finger PIP or D IP joints. He has dense numbness in the right small finger radial digital nerve distribution. He has some numbness but better sensation in the right small finger ulnar digital nerve distribution, which he says is improving since he was seen on Sunday Good active flexion and extension of the other digits. Tox screen this morning was negative. Plan I have reviewed the history and physical and performed a pertinent physical examination on my patient. No changes have occurred unless specified. Assessment and plan: 1. Right small finger FDS and FDP tendon lacerations in zone 2 2. Right small finger dense numbness in radial digital nerve distribution with l ikely digital nerve laceration I educated the patient about these conditions We discussed operative and non operative treatment options and I am recommending surgery I discussed the importance of participating with occupational therapy and falling our directions in the postop period. The patient had a positive tox screen for cocaine 3 days ago and his case was canceled. The tox screen came back clean today. The risks and benefits of operative treatment were discussed with the patient and the patient wishes to proceed with surgery. These risks include, but are not limited to risk of damage to blood vessels, nerves, tendons, infection, recurrence, incomplete relief of preoperative symptoms, persistent pain, possible need for further surgery and the risks associated with regional blocks and anesthesia. The plan is to take the patient to the operating room today for the following procedures: 1. Right small finger FDP and FDS tendon repairs 2. Right small finger wound exploration and likely radial digital nerve microscopic repair All of the preoperative paperwork including the consent was filled out today and signed. All the patient's questions were answered. Time Spent With Patient Time: Total time managing care of this patient today ____ minutes.
--- NOTE | 2023-09-06 08:02 | W.PM.OPN ---
Operative Note Operative Note Date of Service: 09/06/23 Narrative: Operative Note Narrative: Preop diagnosis: 1. Right small finger flexor digitorum superficialis laceration in zone 2 2. Right small finger flexor digitorum profundus laceration in zone 2 3. Right small finger radial digital nerve laceration Postop diagnosis: 1. Right small finger flexor digitorum superficialis laceration in zone 2 2. Right small finger flexor digitorum profundus laceration in zone 2 3. Right small finger radial digital nerve found to be intact Procedure: 1. Right small finger flexor digitorum superficialis tendon repair in zone 2 2. Right small finger flexor digitorum profundus tendon repair in zone 2 3. Right small finger radial digital nerve neurolysis Surgeon: Faby Martini MD Anesthesia: General anesthesia plus regional block Findings: Laceration of the right small finger FDP and FDS tendons in zone 2 beneath the A3 matteo The cut edge of the FDP tendon was found to be beneath the distal edge of the A4 matteo. The radial digital nerve was evaluated through the zone of injury as well as both proximal distal to it and found to be intact. The ulnar digital neurovascular bundle was seen just ulnar to the zone of injury and did not appear to be injured, or involved in the zone of injury. In preop hold the patient also reported improvement in the sensation in the ulnar digital nerve distribution in the last 3 days.. Implants: None Tourniquet time: 110 minutes EBL: 5.0 ml Specimen: None Drains: None Complications: None Disposition: Brought to the recovery room in stable condition Plan: Follow-up with our OT hand therapists for a custom dorsal blocking splint and to begin the flexor tendon protocol. Follow-up in 10-14 days for wound check and suture removal Indications: The patient is 32 years old with a volar laceration of the right small finger at about the proximal phalanx level with no active FDP or FDS tendon function and diminished sensation in the digit, particularly in the radial digital nerve distribution. We attempted to take him to the operating room 3 days ago but he was positive for cocaine. Tox screen was negative today. . The risks and benefits of operative treatment, including but not limited to risk of damage to blood vessels, nerves, tendons, infection, recurrence, persistent pain or numbness, incomplete resolution of preoperative symptoms, or need for further surgery were discussed with the patient and they wished to proceed with surgery. Procedure: Once consent was obtained patient was brought back to the operating suite and placed in the operating table in a supine position. A regional block was performed by the anesthesia team. Perioperative antibiotics and anesthesia was administered by the anesthesia team. A tourniquet was applied to the proximal aspect of the right upper extremity and the limb was prepped and draped in a standard surgical fashion. The limb was elevated exsanguinated with Esmarch bandage and the tourniquet inflated to 250 mm of mercury for a total tourniquet time of 110 minutes. A Den is a type incision was made over the volar aspect of the patient's right small finger, incorporating the laceration. The incision was made through the skin to the subcutaneous tissues using a 15. Blade. Careful dissection was made down to the level of the flexor tendon sheath with care being taken to protect the neurovascular structures. The laceration through the flexor tendon sheath was found in the area of the A3 matteo, just proximal to the PIP joint. Evaluation of the flexor tendon sheath and flexor tendons revealed transverse lacerations of both the FDP and FDS tendons within zone 2. The distal stump of the FDP tendon was noted to be within the distal aspect of the A4 matteo. The distal stump of the FDS tendon was noted to be at the distal edge of the A3 matteo. The wound was washed out and debrided of any nonviable tissue. Our attention was 1st turned to the radial digital nerve. A neurolysis was performed freeing up the radial digital nerve from the surrounding soft tissue. The radial digital nerve was identified in his own of injury as well as both proximal and distal to it. Fortunately, the radial digital nerve appeared to be incontinuity, and no transverse laceration was found. My attention was then turned to retrieving the proximal ends of the FDP and FDS tendons. These were each retrieved using a small hemostat, grasping just deep to the A2 and A1 pulleys. The FDP tendon was passed beneath the A3 matteo at the PIP joint. I then passed it beneath the A4 matteo but found I was not going to be able to perform my repair distal to the A4 matteo in this manner. I therefore withdrew the FDP tendon to just proximal to the A4 matteo and placed a 4-0 FiberWire suture secured in the end of the tendon. This was then passed beneath the A4 matteo. At this point I was able to secure repair to the distal stump using some 4-0 FiberWire suture. This was done using a modified Rai type repair. Another 4-0 FiberWire suture was then added to the repair to strengthen the repair. I do not believe this repairs going to be over the past beneath the A4 matteo, however in grasping the tendon proximally we were able to get good excursion bringing the small finger into flexion at the PIP and D IP joints. Once satisfied with the repair of the FDP tendon I turned my attention to the FDS tendon. I repaired the FDS tendon to the ulnar stump of the FDS tendon distally. At this point the tourniquet was deflated and hemostasis obtained with a brief period of local pressure. The wound was copiously irrigated with normal saline. The the skin edges were reapproximated with 5-0 nylon suture. The wound was infiltrated with some 0.5% plain Marcaine for postop pain control and a sterile dressing was applied. A dorsal blocking splint was then applied holding the MCP and PIP joints in a flexed position. The patient appears to have tolerated the procedure well and with no complications. All digits were well vascularized conclusion of the case.
--- NOTE | 2023-09-06 08:10 | P.CONAN_ITS ---
[facility] Active Problems Active Problems: All Active Problems Injury of digital nerve of right little finger (Acute) Flexor tendon laceration of finger with open wound (Acute) Left wrist sprain (Acute) Past Medical History Medical History Smoker Asthma Surgical History Surgical History History of hand surgery History of Problems with Anesthesia: No Social History Social History Patient Tobacco Use Status: Current everyday Tobacco user Tobacco use type: Cigarette Cigarettes Per Day: 10 Meds Allergies Allergy/AdvReac Type Severity Reaction Status Date / Time No Known Allergies Allergy Verified 09/06/23 06:38 Active Medications: Current Medications Lactated Ringer's (Lr) 1,000 mls @ 80 mls/hr IVCONT .[id number] EUNICE Last Admin: 09/06/23 06:41 Dose: 80 mls/hr Home Medications Medication Instructions Recorded Confirmed Last Taken Type No Known Home Meds 09/06/23 09/06/23 Unknown History Exam Height,Weight and Vital Signs: Height 6 ft 2 in Weight 120.837 kg Last Vital Signs Temp 98.3 F 09/06/23 06:36 Pulse 107 H 09/06/23 06:36 Resp 18 09/06/23 06:36 BP 143/98 H 09/06/23 06:36 Pulse Ox 96 09/06/23 06:36 O2 Del Method Room Air 09/06/23 06:36 Pertinent Lab Results Pertinent Lab Results: Laboratory Tests 09/06/23 06:25 Urine Opiates Screen Not Detected Urine Fentanyl Screen Not Detected Ur Barbiturates Screen Not Detected Ur Phencyclidine Scrn Not Detected Ur Amphetamines Screen Not Detected U Benzodiazepines Scrn Not Detected Urine Cocaine Screen Not Detected U Marijuana (THC) Screen Not Detected Airway Mallampati Class: III TM Dist: >3cm Neck ROM: Full Loose/Missing/Broken Teeth: No Heart: RRR Lungs: CTA Assessment and Plan Assessment Anesthesia Assessment: Anesthesia Plan Discussed and Chart Reviewed Final Anesthetic Review History of Problems with Anesthesia: No NPO: Yes ASA Class: II Final Preanesthetic Review: Meds/Allgs Chart Reviewed, Consent Obtained/Reviewed and Anes Risks/Benef Reviewed Patient Risk: Low Procedure Risk: Low Anesthetic Plan Anesthetic Plan: GA Disposition: Standard PACU
== END 2023-09-06 12:51 | disposition home or self-care (01) ==
PROVIDERS: Anesthesiology; Visit Provider Orthopaedic Surgery
PROC: (CPT 26356; principal; 2023-09-06 07:30)
DX: S56.127A Laceration of flexor muscle, fascia and tendon of right little finger at forearm level, initial encounter (principal); S61.216A Laceration without foreign body of right little finger without damage to nail, initial encounter; S64.496A Injury of digital nerve of right little finger, initial encounter; W26.0XXA Contact with knife, initial encounter; R20.0 Anesthesia of skin; R20.2 Paresthesia of skin; Y93.G1 Activity, food preparation and clean up; Y92.9 Unspecified place or not applicable; Y99.9 Unspecified external cause status
CPT/HCPCS: 26356 ×2; 64702; 80307; J0665; J0690; J1100; J2250; J2371; J2405; J2598; J2704; J2795; J3010

== ENCOUNTER → 2023-09-06 05:43 | Outpatient (BNV) | payer OTHER, SELFPAY | PROVIDERS: Visit Provider Orthopaedic Surgery | DX: S66.126A Laceration of flexor muscle, fascia and tendon of right little finger at wrist and hand level, initial encounter (principal) | CPT/HCPCS: 26356 ==

== ENCOUNTER 2023-09-14 13:27 | Outpatient (RCR) | payer OTHER, SELFPAY ==
--- NOTE | 2023-09-14 16:43 | MHC.OT.EP ---
[address] [phone] Occupational Therapy Plan of Care Patient Name: Trung Le Date of Evaluation: 09/14/23 Diagnosis: Right small finger FDS tendon repair in zone 2 Right small finger FDP tendon repair in zone 2 Right small finger radial digital nerve neurolysis Pain Location: Left hand 2-10/10 sharp, throbbing Pain Score: 10 Pain Scale Used: Numeric (0 - 10) Aggravating Factors: Any movement or touching fingers 3-5 Alleviating Factors: Rx oxycodone and tylenol Assessment: Pt is a 32 yo right dominant male, 8 days s/p left small finger FDS, FDP tendon repair and radial digital neurolysis. Pt missed his 1st scheduled OT eval due to recalling being instructed not to move his hand for 10 days. He reports removing his DBS a few days ago because it hurt every time he bumped it. He changed his bandaging at the same time Today he presents with a very stiff small finger and report of severe pain with gentle passive motion Xeroform dressing was applied to small finger surture and sterile gauze bandaging A DBS was fabricated and pt practiced self passive digit flexion pre protocol and active extension in the confines of the DBS. Pt ed on the rational for the sterile dressing , protective orthosis and passive flexion /active extension exercises with provided during this evaluation Pt was pleasant and engaged with this evaluation. Frequency and Duration: The patient will be seen 2x wk x 6 wks Short Term Goals: Pt to demonstrate compliance with tendon repair precautions Pt to demonstrate independence with HEP Left small finger passive flexion 1 cm to palm Left small finger active PIP ext to 10 deg Residential Goals: Demonstrate left small finger passive flexion to DPC Demonstrate left small finger flexion 1 cm to DPC Demonstrate left small finger PIPj ext to 5 deg Demonstrate use of left hand with daily activities Independenc with HEP Treatment Plan: Therapeutic Exercise Therapeutic Activity Home Exercise Program Splinting Patient Education Edema Control ADL Training Electronically Signed By: Opal Naranjo OT CHT CLT Please Sign and return to therapist. Thank you once again for your referral.
--- NOTE | 2023-10-01 13:51 | MHC.OT.DC ---
[address] [phone] F: [phone] Occupational Therapy Discharge Note Patient Name: Trung Le Provider: Faby Martini Diagnosis: Right small finger FDS tendon repair in zone 2 Right small finger FDP tendon repair in zone 2 Right small finger radial digital nerve neurolysis Date of Surgery: 09/06/23 Date of Evaluation: 09/14/23 Date of Discharge: Treatments to Date: 1 Cancellations to Date: No Shows to Date: 4 Discharge Status: Discharge Summary: OT lamont completed 09/14/23. See eval for details Fabricated a left DBS with MCP flex ~ 50 , wrist neutral Applied Xero form dressing due to pt removing bandaging Pt ed and practice with passive flexion active ext ex per protocol in confines of the DBS Pt ed on tendon repair precautions Printed HEP issued Electronically Signed By: Opal Naranjo OT CHT CLT Reviewed/agree with student documentation: Therapist: Please Sign and return to therapist, thank you for your referral.
== END 2023-10-01 13:51 | disposition home or self-care (01) ==
LOC: HO.OT 13:27
PROVIDERS: Visit Provider Orthopaedic Surgery
DX: S64.496D Injury of digital nerve of right little finger, subsequent encounter (principal); S56.129D Laceration of flexor muscle, fascia and tendon of unspecified finger at forearm level, subsequent encounter; S61.209D Unspecified open wound of unspecified finger without damage to nail, subsequent encounter
CPT/HCPCS: 29125; 97110; 97166; 97760

== ENCOUNTER 2023-09-18 10:37 | Outpatient (AMB) | payer OTHER, SELFPAY ==
--- NOTE | 2023-09-18 10:42 | MHC.OFFVIS ---
Intake Intake Visit Reasons: PO RT little fing tend poss digtl nerve 09/03/23 AR Intake Note: Trung 32 yr old male presents today for his P/O visit for his right little finger tendon repair from 09/03/23. States he is having pain especially after O.T. Allergies No Known Allergies Allergy (Verified 09/18/23 10:50) HPI PO RT little fing tend poss digtl nerve 09/03/23 AR HPI Details Trung is a 32 year old right hand dominant man who presents S/P right small finger FDS & FDP tendon repair in zone 2, DOS: 09/06/23. He complains of pain and stiffness in his small finger. He says his pain is worse following his OT appointment. He says he removed his splint this morning before his shower due to his splint being smelly . He denies any numbness or tingling. He did not begin OT until 09/13/23, as he no-showed his first appointment believing he was not to move his small finger for 10 days post-op. He removed his finger splint at home a few days following surgery, and he changed his dressings at this time as well. [facility] Medical History Smoker Asthma Surgical History History of hand surgery Social History Patient Tobacco Use Status: Current everyday Tobacco user Tobacco use type: Cigarette Cigarettes Per Day: 10 Review of Systems Const All systems reviewed & are unremarkable except as noted in HPI and below Physical Exam Const General: no acute distress and alert Orientation/consciousness: patient oriented x3 Neuro General: patient oriented x3 Extrem Other: The patient was alert oriented and in no acute distress The incision is healing well with no erythema drainage or evidence of infection. Sutures removed and Steri-Strips applied He was seen today not wearing his dorsal blocking splint, having lifted at home. His surgical incision site and laceration all appear to be healing well. He still has some swelling in the small finger but no erythema drainage or evidence of infection today. Sutures are in place. Cap refill is brisk to the tip of the digit. He feels like sensation is improving to the tip of the finger and is present in both the radial digital nerve and ulnar digital nerve distributions. Small finger is held in a slightly flexed position consistent with the FDP tendon likely still being status post repair He is actively flexing and extending his thumb index and middle fingers and also has good active motion of the ring finger seen today. Psych Appearance: grossly normal Affect: normal affect Attitude: cooperative Assessment & Plan Assessment & Plan (1) Flexor tendon laceration of finger with open wound: Code(s): S56.129A - Laceration of flexor muscle, fascia and tendon of unspecified finger at forearm level, initial encounter; S61.209A - Unspecified open wound of unspecified finger without damage to nail, initial encounter Qualifiers: Encounter type: initial encounter Qualified Code(s): S56.129A - Laceration of flexor muscle, fascia and tendon of unspecified finger at forearm level, initial encounter; S61.209A - Unspecified open wound of unspecified finger without damage to nail, initial encounter (2) Injury of digital nerve of right little finger: Code(s): S64.496A - Injury of digital nerve of right little finger, initial encounter Qualifiers: Encounter type: initial encounter Qualified Code(s): S64.496A - Injury of digital nerve of right little finger, initial encounter Plan Assessment & Plan: 1. Right small finger flexor tendon lacerations, S/P FDP & FDS tendon repairs in zone 2 DOI: 08/28/23 DOS: 09/06/23 I do have some concerns about how he is doing postoperatively. He missed 2 of his 3 OT hand therapy appointments. He showed up to clinic today without his dorsal blocking splint saying he thought it smelled bad and did want to put his hand back in it after a shower. He also removed his dorsal blocking splint prior to beginning OT on 09/13/23 I educated him about the post-operative course. I explained the importance of remaining in his splint and following all post-op instructions fully, in order to reduce the risk pulling out his tendon repair. I also educated him about the importance of attending his OT hand therapy visits and performing the exercises as instructed. He has a right home today and says that he will put his hand right into that dorsal blocking splint. I explained the signs and symptoms of infection, and he knows to contact us if he has any such problems. Pat is going to start to take out his stitches today. He will follow up in 1 week if any stitches need to be left in for an additional week of healing. Otherwise he can come back in 4 weeks to see how he is doing. Scribed for Faby Martini MD by Sal Wray, medical office professional instructor, on 09/18/23 at 11:35 AM, EST. Coding Level of Care Code Global (74418) Diagnoses Flexor tendon laceration of finger with open wound, initial encounter S56.129A; S61.209A Encounter type: initial encounter Injury of digital nerve of right little finger, initial encounter S64.496A Encounter type: initial encounter
== END 2023-09-18 12:13 | disposition home or self-care (01) ==
PROVIDERS: Visit Provider Orthopaedic Surgery
DX: S56.129A Laceration of flexor muscle, fascia and tendon of unspecified finger at forearm level, initial encounter (principal); S61.209A Unspecified open wound of unspecified finger without damage to nail, initial encounter; S64.496A Injury of digital nerve of right little finger, initial encounter
CPT/HCPCS: 99024

== ENCOUNTER → 2023-09-18 10:37 | Outpatient (BNVA) | payer OTHER, SELFPAY | PROVIDERS: Visit Provider Orthopaedic Surgery | DX: S56.127D Laceration of flexor muscle, fascia and tendon of right little finger at forearm level, subsequent encounter (principal); S64.496D Injury of digital nerve of right little finger, subsequent encounter | CPT/HCPCS: 99212 ==

== ENCOUNTER 2024-10-09 12:56 | Inpatient (IN) | payer OTHER, SELFPAY ==
--- NOTE | ~2024-10-09 | XR_ITS ---
CLINICAL HISTORY: CP 2 view chest x-ray Comparison: CR/WA/SR - CHEST 1 VIEW - 05/25/19 11:33 EDT Findings: There is prominence of interstitial markings within the bilateral lungs. There is a small right pleural effusion. Possible pulmonary congestion. Heart size is normal. No acute fracture. IMPRESSION: 1. Possible pulmonary congestion. 2. Interstitial infiltrates and/or edema. 3. Small right pleural effusion. This document has been electronically signed by: Becca Mckeon MD on 10/09/2024 17:08:21
--- NOTE | ~2024-10-09 | CT_ITS ---
CLINICAL HISTORY: pleuritic chest pain abnormal trop and BNP CT angiography chest with contrast. 3D Postprocessing. Comparison: CR - XR CHEST 2V - 10/09/24 16:57 EST Findings: The heart is mildly enlarged. No pericardial effusion or coronary artery calcifications. Unremarkable thoracic aorta and great vessels. No aneurysm. No pulmonary artery filling defects. Unremarkable thyroid gland. Multiple mildly enlarged mediastinal lymph nodes. Small bilateral pleural effusions, right larger than left. Prominence of septal markings. No consolidative process. Ground-glass opacities are present within the bilateral lower lobes. The upper abdomen is unremarkable. The bones are intact. IMPRESSION: 1. No evidence of pulmonary artery embolism. 2. Small bilateral pleural effusions, [id number]-left. Interstitial edema is also present. Suspect congestive heart failure. 3. There is a mild degree of cardiomegaly. This document has been electronically signed by: Becca Mckeon MD on 10/09/2024 19:07:25
[2024-10-09 13:44] VITALS: BP 132/56; PULSE 95; RESP 20; TEMP 36.4; O2SAT 95; BMI 32.4
--- NOTE | 2024-10-09 13:45 | ED_ITS ---
HPI - General Adult General Chief complaint: Dyspnea Stated complaint: diff breathing Time Seen by Provider: 10/09/24 16:49 Source: patient Mode of arrival: ambulatory Limitations: no limitations History of Present Illness ED Provider: SREE MAY narrative: 33 yo male with PMH of asthma here with c/o not feeling well with URI, cough, phlegm x 3 weeks. He has not had a fever, about a week ago did have n/v/d. He notes over the past week he is getting worse and his breathing is much worse - he states he has chest pressure, hurts to breathe and he cannot catch his breath. He has never had this before. No recent fevers, travel, hotel stays. He does not vape. He has tried his INH but it is not helping. No leg edema. No hx of blood clots. MD complaint: dyspnea Onset (ago): week(s) (3) Location: chest Radiation: non-radiation Severity: moderate Relieving factors: none Exacerbating factors: movement (exertion) Associated symptoms: loss of appetite and shortness of breath Treatments prior to arrival: none Related Data Home Medications ?Medication ?Instructions ?Recorded ?Confirmed multivitamin 1 tab PO DAILY 10/09/24 10/09/24 Allergies Allergy/AdvReac Type Severity Reaction Status Date / Time No Known Allergies Allergy Verified 10/09/24 13:48 Review of Systems 2 Review of Systems: Constitutional : No Fever, No Chills ENT/Mouth : No sore throat, No Rhinorrhea, No Swallowing Difficulty Eyes: No Eye Pain, No Swelling, No Redness Cardiovascular : pos Chest Pain, positive SOB, No Orthopnea, positive Edema Respiratory : pos Cough, pos Sputum, No Wheezing, positive dyspnea Gastrointestinal : No Nausea, No Vomiting, No Diarrhea, No abdominal Pain, No Hematochezia, No Melena Genitourinary : No Dysuria, No Urinary Frequency, No Hematuria Musculoskeletal : No joint pain, No Myalgias Skin : No Skin Lesions, No rash Neuro : No Weakness, No Numbness, No Dizziness, No Headache Psych : No Anxiety/Panic, No Depression Heme/Lymph: No Bruising, No Lymphadenopathy Endocrine : No Polyuria, No Polydipsia All other systems reviewed and are negative PMFSH Past Medical History Attestation statement: The following information was validated with the patient. Source: old records reviewed Medical History Smoker Asthma Surgical History History of hand surgery Social History Social History Patient Tobacco Use Status: Current everyday Tobacco user Tobacco use type: Cigarette Cigarettes Per Day: 10 Advance Directives: No Advance Directives Information Provided: No Physical Exam ED Vital Signs: Vital Signs - 24 hr 10/09/24 13:44 10/09/24 16:28 10/09/24 17:12 Temperature 97.6 F 97.2 F Pulse Rate 95 58 55 Respiratory Rate 20 18 16 Blood Pressure 132/56 L 155/96 H Pulse Oximetry 95 97 Oxygen Delivery Method Room Air Room Air 10/09/24 19:28 10/09/24 19:42 10/09/24 20:33 Temperature 98.1 F 97.7 F Pulse Rate 89 104 H Respiratory Rate 18 24 H Blood Pressure 145/78 H 143/87 H Pulse Oximetry 92 92 Oxygen Delivery Method Room Air Room Air BMI result Body Mass Index 32.4 Appearance: Alert. Oriented X3. No acute distress. Eyes: Pupils equal, round and reactive to light. ENT: Pharynx normal. Neck: Normal inspection. Neck supple. CVS: tachycardic heart rate and rhythm. Pulses normal. Respiratory: No respiratory distress. Breath sounds rales noted in both bases and very diminished Abdomen: Soft and nontender. Skin: Skin warm and dry. Normal skin color. Normal skin turgor. Extremities: No lower extremity edema. Neuro: Oriented X 3. No motor deficit. No sensory deficit. CN2-12 intact Course Course Course Narrative: This is an RME: Additional HPI, ROS, PE not included below will be deferred to primary provider. RME assessment and note performed by: Carla Mehta PA-C This is a [id number]-male who presents to the ER with complaints of chest pain, cough, congestion. Recent exposure to pneumonia. Hx of asthma. No recent travels, surgeries, hospitalizations. Reports constant chest heaviness. He does report that he uses cocaine, last use was yesterday, reports that he used several lines. He does report he has been coughing yellow phlegm, has been using his inhaler with minimal relief. No lower extremity edema. No calf tenderness. Plan: Labs, EKG, xray, viral swabs Medications Administered Discontinued Medications Generic Name Dose Route Start Last Admin Trade Name Jermaine PRN Reason Stop Dose Admin Albuterol/Ipratropium 3 ml 10/09/24 17:11 10/09/24 17:16 Albuterol/Iprat 2.5/0.5mg 3 Ml Ampul.Neb INHALE 10/09/24 17:12 3 ml ONCE ONE Administration Ceftriaxone Sodium 1 gm 10/09/24 17:11 10/09/24 17:44 Ceftriaxone Sodium 1 Gm Vial IVPUSH 10/09/24 17:12 1 gm ONCE ONE Administration Furosemide 40 mg 10/09/24 19:12 10/09/24 19:28 Furosemide 40 Mg/4 Ml Vial IVPUSH 10/09/24 19:13 40 mg STAT STA Administration Protocol Ibuprofen 600 mg 10/09/24 17:46 10/09/24 17:49 Ibuprofen 600 Mg Tablet PO 10/09/24 17:47 600 mg ONCE ONE Administration Iohexol 65 ml 10/09/24 17:49 10/09/24 17:50 Iohexol 350 Mg/Ml 75 Ml Infus..Btl IV 10/09/24 17:50 65 ml ONCE ONE Administration Procedures Procedure Narrative Procedure Narrative: limited bedside ECHO apical, parasternal, subxiphoid markedly enlarged heart no effusion, global hypokineses and dilated RA and RV Medical Decision Making Medical Decision Making MDM Narrative: 33 yo male with PMH of asthma here with c/o dyspnea and has rales on exam here with dyspnea and rales on exam after recent viral illness - at this time bedside ECHO for effusion, CTA for PE, repeat troponin, nebs and anticipate IV ceftriaxone in case of pneumonia as well as IV lasix. Planned admit Differential Diagnosis Differential Diagnoses: The differential diagnosis associated with the presentation includes asthma, myocarditis, CHF, pericarditis, VTE Admission/Observation Consideration of admission/observation: Escalation of care including admission/observation considered admit for new CHF likely viral induced Consult Healthcare Provider Management of the patient was discussed with: Hospitalist (will admit) Lab Data MDM Lab Attestation statement: I reviewed the patient's lab results. 10/09/24 14:20 10/09/24 14:20 Labs: Lab Results 03/01/2810/09/24 10/09/24 Range/Units 14:20 17:16 17:17 WBC 8.7 (4.8-10.8) X10*3/uL RBC 4.87 (4.60-5.80) X10*6/uL Hgb 15.0 (14.0-18.0) g/dl Hct 44.9 (42.0-52.0) % MCV 92.2 (80.0-98.0) fL MCH 30.8 (27.0-33.0) pg MCHC 33.4 (31.0-36.0) g/dl RDW 11.7 (11.0-16.0) % Plt Count 205 (160-400) X10*3/uL MPV 11.1 (9.4-12.4) fL Immature Gran % (Auto) 0.5 H (0.0-0.4) % Neut % (Auto) 67.6 (45-73) % Lymph % (Auto) 24.7 (20-40) % [place] % (Auto) 5.5 (2-11) % Eos % (Auto) 1.4 (0-4) % Baso % (Auto) 0.3 (0-2) % Lymph # (Auto) 2.1 (1.2-4.9) X10*3/uL [place] # (Auto) 0.5 (0.1-1.2) X10*3/uL Eos # (Auto) 0.1 (0.0-0.4) X10*3/uL Baso # (Auto) 0.0 (0.0-0.2) X10*3/uL Abs Immat Gran (auto) 0.04 H (0.00-0.03) X10*3/uL Absolute Neuts (auto) 5.9 (2.0-8.3) x10*3/uL Absolute Nucleated RBC 0.000 (0.0-0.012) X10*3/uL Nucleated RBC % (auto) 0.0 (0.0-0.2) /100WBC ESR 2 (0-15) MM/HR PT 11.1 (10.9-12.4) SEC INR 1.0 (0.9-1.1) APTT 27.7 (26.0-36.8) SEC Sodium 143 (135-145) mmol/L Potassium 4.6 (3.3-5.1) mmol/L Chloride 109 H (96-108) mmol/L Carbon Dioxide 26 (22-29) mmol/L Anion Gap 13 (12-20) BUN 16 (9-16) mg/dL Creatinine 0.98 (0.5-1.4) mg/dL Estim Creat Clear Calc 141.6 Estimated GFR > 60 Random Glucose 117 H (60-115) mg/dL Lactic Acid 1.8 (0.5-2.0) mmol/L Calcium 8.6 (8.4-10.2) mg/dL Total Bilirubin 0.4 (0.0-1.0) mg/dL Direct Bilirubin 0.2 (0.0-0.5) mg/dL AST 25 (5-37) U/L ALT 24 (0-40) U/L Alkaline Phosphatase 68 (39-117) U/L Troponin I High Sens 83.6 H 64.3 H (<3.5-35.0) ng/L C-Reactive Protein 0.50 (< or = 0.50) mg/dL B-Natriuretic Peptide 782 H (<100) pg/mL Total Protein 6.9 (6.5-8.0) g/dL Albumin 3.9 (3.5-5.0) g/dL Hold Yellow Top See Note Influenza Type A (PCR) NEGATIVE (Negative) Influenza Type B (PCR) NEGATIVE (Negative) RSV RNA Qual (PCR) NEGATIVE (Negative) SARS-CoV-2 RNA (RT-PCR) NEGATIVE (Negative) Independent Interpretation I performed an independent interpretation of an: EKG, Plain X-Ray (+ edema) and CT Scan (no PE + CHF) Interpretation: Rate: 109 Rhythm: sinus tach with PACs [place]: left LVH Normal P waves. Normal LEON. Normal QRS complex. ST T wave : nonspecific ST T wave changes lateral leads no HODA qTC: 455 prior studies: no prior The study has been interpreted contemporaneously by me. . Radiology Impression Discussion of test interpretation with radiology: I have reviewed the radiologist's reading. Discharge Plan Discharge Clinical Impression: Acute dyspnea Acute CHF Qualifiers: Heart failure type: unspecified Qualified Code(s): I50.9 - Heart failure, unspecified Patient Disposition: Admitted As Inpatient
--- NOTE | 2024-10-09 13:47 | ECG_ITS ---
Test Reason : CP Blood Pressure : */* mmHG Vent. Rate : 109 BPM Atrial Rate : 109 BPM P-R Int : 160 ms QRS Dur : 100 ms QT Int : 338 ms P-R-T Axes : 49 43 68 degrees QTcB Int : 455 ms Sinus tachycardia with Premature supraventricular complexes Minimal voltage criteria for LVH, may be normal variant ( Sokolow-Prince ) Nonspecific T wave abnormality Abnormal ECG When compared with ECG of 20-Jul-2006 03:10, Premature atrial complexes are now Present Referred By: Carla Mehta Electronically Signed By: JEFFERY HAYNES MD
[2024-10-09 14:25] LABS: MANUAL DIFF FLAG NO
[2024-10-09 14:27] LABS: Basophils Percent Auto 0.3 % (0-2); Eosinophils Absolute Auto 0.1 X10*3/uL (0.0-0.4); Eosinophils Percent Auto 1.4 % (0-4); Hematocrit 44.9 % (42.0-52.0); Imm Gran Abs Auto 0.04 X10*3/uL (0.00-0.03); Imm Gran Pct Auto 0.5 % (0.0-0.4); Lymphocytes Absolute Auto 2.1 X10*3/uL (1.2-4.9); Lymphocytes Percent Auto 24.7 % (20-40); Mean Corpuscular HGB Conc 33.4 g/dl (31.0-36.0); Mean Corpuscular Hemoglobin 30.8 pg (27.0-33.0); Mean Corpuscular Volume 92.2 fL (80.0-98.0); Mean Platelet Volume 11.1 fL (9.4-12.4); Monocytes Absolute Auto 0.5 X10*3/uL (0.1-1.2); Monocytes Percent Auto 5.5 % (2-11); Neutrophils Absolute Auto 5.9 x10*3/uL (2.0-8.3); Neutrophils Percent Auto 67.6 % (45-73); Platelet Count 205 X10*3/uL (160-400); Red Blood Count 4.87 X10*6/uL (4.60-5.80); Red Cell Distribution Width 11.7 % (11.0-16.0); White Blood Count 8.7 X10*3/uL (4.8-10.8)
[2024-10-09 14:43] LABS: Alanine Aminotransferase 24 U/L (0-40); Albumin Level 3.9 g/dL (3.5-5.0); Alkaline Phosphatase 68 U/L (39-117); Anion Gap 13 (12-20); Aspartate Amino Transferase 25 U/L (5-37); Bilirubin Direct 0.2 mg/dL (0.0-0.5); Bilirubin Total 0.4 mg/dL (0.0-1.0); Blood Urea Nitrogen 16 mg/dL (9-16); Calcium 8.6 mg/dL (8.4-10.2); Carbon Dioxide 26 mmol/L (22-29); Chloride 109 mmol/L (96-108); Creatinine Clr Calc Pharmacy 141.6; Estimated Glomerular Filt Rate > 60; Glucose Random 117 mg/dL (60-115); Potassium 4.6 mmol/L (3.3-5.1); Sodium 143 mmol/L (135-145); Total Protein 6.9 g/dL (6.5-8.0)
[2024-10-09 14:49] LABS: Troponin-I High Sensitivity 83.6 ng/L (<3.5-35.0)
[2024-10-09 14:50] LABS: B Type Natriuretic Peptide 782 pg/mL (<100)
[2024-10-09 15:06] LABS: Influenza A PCR NEGATIVE (Negative); Influenza B PCR NEGATIVE (Negative); Resp Syncy Virus RNA Qual PCR NEGATIVE (Negative); SARS COV2 PCR INHOUSE NEGATIVE (Negative)
[2024-10-09 16:28] VITALS: BP 155/96; PULSE 58; RESP 18; TEMP 36.2; O2SAT 97
[2024-10-09 17:12] VITALS: PULSE 55; RESP 16; O2SAT 98
[2024-10-09] MEDS: Albuterol/Iprat 2.5/0.5MG 3 ML AMPUL.NEB INHALE (17:16)
[2024-10-09 17:36] LABS: Prothrombin Time 11.1 SEC (10.9-12.4)
[2024-10-09 17:38] LABS: Partial Thromboplastin Time 27.7 SEC (26.0-36.8)
[2024-10-09 17:44] LABS: Lactic Acid 1.8 mmol/L (0.5-2.0)
[2024-10-09] MEDS: cefTRIAXone sodium 1 GM VIAL IVPUSH (17:44)
[2024-10-09] MEDS: Ibuprofen 600 MG TABLET PO (17:49)
[2024-10-09] MEDS: iohexoL 350 MG/ML 75 ML INFUS..BTL 65 ML IV (17:50)
[2024-10-09 17:51] LABS: Troponin-I High Sensitivity 64.3 ng/L (<3.5-35.0)
[2024-10-09 18:09] LABS: Erythrocyte Sedimentation Rate 2 MM/HR (0-15)
[2024-10-09 19:28] VITALS: BP 145/78
[2024-10-09] MEDS: Furosemide 40 MG/4 ML VIAL IVPUSH (19:28)
--- OUTSIDE RECORDS SUMMARY | 2024-10-09 19:34 | XMS_ITS | Clinical Summary ---
Author Organization [employer] Address [address] [place] [address] [address] [place] [address] Care Team Providers Care Record Systems Analyst Name Role Phone Unavailable Primary Care Provider Unavailabl e Allergies No known active allergies Medications acamprosate (Campral) 333 MG EC tabletIndicatio ns:Alcohol use disorder, severe, dependence (CMS/HCC) Take 2 tablets (666 mg) by mouth 3 times daily. Do not crush, chew, or split. 180 tablet 1 06/22/2023 Active Social History Tobacco Use Types Packs/Day Years Used Date Smoking Tobacco: Never Assessed Sex and Gender Information Value Date Recorded Sex Assigned at Male 06/05/2022 10:19 AM EDT Legal Sex Male 10:19 AM EDT Gender Identity Choose not to disclose 10:19 AM EDT Sexual Orientation Choose not to disclose 2021 10:19 AM EDT Last Filed Vital Signs Vital Sign Reading Time Taken Comments Blood Pressure 163/107 06/22/2023 2:19 PM EST Pulse 93 06/22/2023 2:19 PM EST Temperature 36.6 ??C (97.8 ??F) 06/22/2023 2:19 PM ES T Respiratory Rate 20 06/22/2023 2:19 PM EST Oxygen Saturation - - Inhaled Oxygen Concentration - - Weight - - Height - - Body Mass Index - - Plan of Treatment Health Maintenance Due Date Last Done Comments Depression Screening 1988 Lipid Panel 1988 SDOH Screening 1988 Alcohol/Substance Use Screening 2000 Tobacco Screening 2000 Family Planning (PISQ) 12/13/2003 DTaP/Tdap/Td Vaccines (1 - Tdap) 12/13/2007 Hepatitis B Vaccines (1 of 3 - 19+ 3-dose series) 12/13/2007 COVID-19 Vaccine (2023-2 5 season) 2024 Influenza Vaccine (#1) 2024 Zoster Vaccines (1 of 2) 2038 RSV Patients and Pa tients Aged 60 years or older (1 - 1-dose 75+ series) 12/13/2063 HIV Screening Completed 03/03/2020 Hepatitis C Screening Completed 03/03/2020 HIB Vaccines Aged Out No longer eligi ble based on patient's age to complete this topic HPV Vaccines Aged Out No longer eligi ble based on patient's age to complete this topic Hepatitis A Vaccines Aged Out No long er eligible based on patient's age to complete this topic IPV Vaccines Aged Out No longer eligi ble based on patient's age to complete this topic Meningococcal Vaccine Aged Out No lg [place] eligible based on patient's age to complete this topic Pneumococcal Vaccine: Pediat rics (0 to 5 Years) and At-Risk Patients (6 to 49) Years) Aged Out No longer elig ible based on patient's age to complete this topic RSV under 20 months Aged Out No longe r eligible based on patient's age to complete this topic Rotavirus Vaccines Aged Out No longer eligible based on patient's age to complete this topic Procedures Procedure Name Priority Date/Time Associated Diagnosis Comments GOLD HISTORICAL HEPATITIS C AB W/REFL TO HCV RNA, QN, PCR Routine 03/03/2020 11:22 AM EDT HIV 1/2 ANTIGEN/ANTIBODY, FOURTH GENERATION W/RFL Routine 03/03/2020 11:22 AM EDT from Last 3 Months or Most Recently Relevant to Health Maintenance Results * HEPATITIS C AB W/REFL TO HCV RNA, QN, PCR (03/03/2020 11:22 AM EDT) HEPATITIS C ANTIBODY NON-REACT ASTER NON-REACT ASTER [facility] INDEX 0.03 <1.00 [facility] Comment: ?? HCV antibody was non-reactive. There is no laboratory ?? evidence of HCV infection. ?? In most cases, no further action is required. However, if recent HCV exposure is suspected, a test for HCV RNA (test code 94576) is suggested. ?? For additional information please refer to http://Contract Cloud/faq/MCF67j5 (This link is being provided for informational/ educational purposes only.) ?? HEPATITIS C ANTIBODY NON-REACT [facility] NON-REACT [facility] INDEX 0.03 <1.00 [facility] Comment: ?? HCV antibody was non-reactive. There is no laboratory ?? evidence of HCV infection. ?? In most cases, no further action is required. However, if recent HCV exposure is suspected, a test for HCV RNA (test code 10593) is suggested. ?? For additional information please refer to http://Contract Cloud/faSiamab [employer]rapeutics/UMH69a1 (This link is being provided for informational/ educational purposes only.) ?? HEPATITIS C ANTIBODY NON-REACT ASTER NON-REACT [facility] INDEX 0.03 <1.00 [facility] Comment: ?? HCV antibody was non-reactive. There is no laboratory ?? evidence of HCV infection. ?? In most cases, no further action is required. However, if recent HCV exposure is suspected, a test for HCV RNA (test code 82575) is suggested. ?? For additional information please refer to http://Contract Cloud/faq/DUJ85f3 (This link is being provided for informational/ educational purposes only.) ?? HEPATITIS C ANTIBODY NON-REACT ASTER NON-REACT [facility] INDEX 0.03 <1.00 [facility] Comment: ?? HCV antibody was non-reactive. There is no laboratory ?? evidence of HCV infection. ?? In most cases, no further action is required. However, if recent HCV exposure is suspected, a test for HCV RNA (test code 42942) is suggested. ?? For additional information please refer to http://Hochy eto.Thatgamecompany/faq/DWG44g9 (This link is being provided for informational/ educational purposes only.) ?? HEPATITIS C ANTIBODY NON-REACT ASTER NON-REACT ASTER [facility] INDEX 0.03 <1.00 [facility] Comment: ?? HCV antibody was non-reactive. There is no laboratory ?? evidence of HCV infection. ?? In most cases, no further action is required. However, if recent HCV exposure is suspected, a test for HCV RNA (test code 58795) is suggested. ?? For additional information please refer to http://Hochy eto.[employer]gamecompany/faq/CNS57z2 (This link is being provided for informational/ educational purposes only.) ?? 03/03/2020 11:2 2 AM EDT Adalberto Wright MD HISTORICAL/NON ORDERABLE LABS Final Result [facility] [address] * HIV 1/2 ANTIGEN/ANTIBODY,FOURTH GENERATION W/RFL (03/03/2020 11:22 AM EDT) HIV-1/2 ANTIGEN AND ANTIBODIES, 4TH GENERATION W/ REFLEX NON-REACT ASTER NON-REACT [facility] Comment: HIV-1 antigen and HIV-1/HIV-2 antibodies were not detected. There is no laboratory evidence of HIV infection. ?? PLEASE NOTE: This information has been disclosed to you from records whose confidentiality may be protected by state law. ??If your state requires such protection, then the state law prohibits you from making any further disclosure of the information without the specific written consent of the person to whom it pertains, or as otherwise permitted by law. A general authorization for the release of medical or other information is NOT sufficient for this purpose. ? For additional information please refer to http://Hochy eto.Thatgamecompany/faq/HST669 (This link is being provided for informational/ educational purposes only.) ? The performance of this assay has not been clinically validated in patients less than 2 years old. ?? HIV-1/2 ANTIGEN AND ANTIBODIES, 4TH GENERATION W/ REFLEX NON-REACT ASTER NON-REACT ASTER [facility] Comment: HIV-1 antigen and HIV-1/HIV-2 antibodies were not detected. There is no laboratory evidence of HIV infection. ?? PLEASE NOTE: This information has been disclosed to you from records whose confidentiality may be protected by state law. ??If your state requires such protection, then the state law prohibits you from making any further disclosure of the information without the specific written consent of the person to whom it pertains, or as otherwise permitted by law. A general authorization for the release of medical or other information is NOT sufficient for this purpose. ? For additional information please refer to http://Hochy eto.Thatgamecompany/faq/WAP222 (This link is being provided for informational/ educational purposes only.) ? The performance of this assay has not been clinically validated in patients less than 2 years old. ?? HIV-1/2 ANTIGEN AND ANTIBODIES, 4TH GENERATION W/ REFLEX NON-REACT ASTER NON-REACT [facility] Comment: HIV-1 antigen and HIV-1/HIV-2 antibodies were not detected. There is no laboratory evidence of HIV infection. ?? PLEASE NOTE: This information has been disclosed to you from records whose confidentiality may be protected by state law. ??If your state requires such protection, then the state law prohibits you from making any further disclosure of the information without the specific written consent of the person to whom it pertains, or as otherwise permitted by law. A general authorization for the release of medical or other information is NOT sufficient for this purpose. ? For additional information please refer to http://Contract Cloud/faq/MXT794 (This link is being provided for informational/ educational purposes only.) ? The performance of this assay has not been clinically validated in patients less than 2 years old. ?? HIV-1/2 ANTIGEN AND ANTIBODIES, 4TH GENERATION W/ REFLEX NON-REACT ASTER NON-REACT [facility] Comment: HIV-1 antigen and HIV-1/HIV-2 antibodies were not detected. There is no laboratory evidence of HIV infection. ?? PLEASE NOTE: This information has been disclosed to you from records whose confidentiality may be protected by state law. ??If your state requires such protection, then the state law prohibits you from making any further disclosure of the information without the specific written consent of the person to whom it pertains, or as otherwise permitted by law. A general authorization for the release of medical or other information is NOT sufficient for this purpose. ? For additional information please refer to http://Contract Cloud/faq/XIZ391 (This link is being provided for informational/ educational purposes only.) ? The performance of this assay has not been clinically validated in patients less than 2 years old. ?? 03/03/2020 11:2 2 AM EDT us Adalberto Wright MD LAB BLOOD ORDERABLES Final Res ult [facility] [address] from Last 3 Months or Most Recently Relevant to Health Maintenance [place] [address] [place] [address] - [employer]
[2024-10-09 19:42] VITALS: PULSE 89; RESP 18; TEMP 36.7; O2SAT 92
--- NOTE | 2024-10-09 20:31 | PHA.MEDREC ---
Addendum entered by Alesia Mendez RPh 10/09/24 20:45: [facility] REVIEWED Original Note: Pharmacy Consult ? Medication Reconciliation Pharmacy has completed the medication reconciliation. Spoke with patient and he confirmed he was taking 2 forms of Steroids and Testosterone that he was buying online but states he stopped taking those within the last 2 weeks due to how hes been feeling. Patient also confirmed he was taking a Multivitamin tablet once daily but stopped that as well when he stopped taking the other medications.
[2024-10-09 20:33] VITALS: BP 143/87; PULSE 104; RESP 24; TEMP 36.5; O2SAT 92
--- NOTE | 2024-10-09 23:33 | PM.IMHP ---
History of Present Illness Date of Service: 10/09/24 Attending physician on admission: Dominguez Garrett Chief Complaint: Progressively worsening shortness of breath Patient is a 33-year-old obese male with a past medical history of asthma and was an active smoker and also cocaine user who presents to emergency room complaining of progressively worsening dyspnea for the last 3 weeks. Symptoms were initially with a exertion but now he has symptoms even at rest. He describes being ill recently with upper respiratory symptoms and since then his breathing has become worse. He also describes associated chest pressure/tightness stating that at times it hurts to breathe and he can not catch his breath. He has never had this before. On arrival to the emergency room he was found with stable vital signs. Initial blood work revealed mildly elevated troponin I added 3.6 while his BNP was elevated [address] angiogram of the chest did not show any PE but instead revealed cardiomegaly with bilateral pleural effusions and concerns for CHF. An assessment of new onset CHF was made and admission requested. Review of Systems Review of Systems: Yes all other systems are reviewed and are negative [facility] Medical History Smoker Asthma Functional capacity: independent ambulation Surgical History History of hand surgery Social History Patient Tobacco Use Status: Current everyday Tobacco user Tobacco use type: Cigarette Cigarettes Per Day: 10 Advance Directives: No Advance Directives Information Provided: No Meds Allergies Allergy/AdvReac Type Severity Reaction Status Date / Time No Known Allergies Allergy Verified 10/09/24 13:48 Home Medications ?Medication ?Instructions ?Recorded ?Confirmed ?Last Taken ?Type multivitamin 1 tab PO DAILY 10/09/24 10/09/24 2 Weeks Ago History ~09/25/24 Physical Exam Vital Signs and Narrative: Vital Signs: Last Vital Signs Temp 97.7 F 10/09/24 20:33 Pulse 104 H 10/09/24 20:33 Resp 24 H 10/09/24 20:33 BP 143/87 H 10/09/24 20:33 Pulse Ox 92 10/09/24 20:33 O2 Del Method Room Air 03/06/25 20:33 BMI result Body Mass Index 32.4 General: Well nourished. Awake, alert and oriented x 4. No apparent distress Eyes: No pallor or jaundice. PERRLA, EOMI HENT: Moist oral mucus membranes. No oropharyngeal lesions. Neck: Supple. No cervical adenopathy. No JVD Cardiovascular: Regular rate and rhythm. Normal heart sounds. No murmurs, rubs or gallops. No JVD. No peripheral edema. Respiratory: Normal respiratory effort with no accessory muscle use. CTAB. Gastrointestinal: Abdomen is soft, non-tender, non-distended. Normoactive bowel sounds in all quadrants. No hepatosplenomegaly Extremities: No edema. No calf tenderness. Good peripheral pulses Skin - Warm/Dry. No rashes. No mottling. Capillary refill is < 2 seconds Neurological - AAOx4. Intact speech & cognition. Normal gait & balance. CN II - XII grossly intact but not individually tested. No motor or sensory deficits Hematologic: No bleeding. No ecchymosis. No swollen or tender lymph nodes. Psychiatric: Cooperative. Appropriate mood and affect Results Labs 10/09/24 14:20 10/09/24 14:20 Labs: Laboratory Results - last 24 hr 10/09/24 10/09/24 10/09/24 14:20 17:16 17:17 MCV 92.2 MCH 30.8 MCHC 33.4 RDW 11.7 Plt Count 205 MPV 11.1 Immature Gran % (Auto) 0.5 H Neut % (Auto) 67.6 Lymph % (Auto) 24.7 [place] % (Auto) 5.5 Eos % (Auto) 1.4 Baso % (Auto) 0.3 Lymph # (Auto) 2.1 [place] # (Auto) 0.5 Eos # (Auto) 0.1 Baso # (Auto) 0.0 Abs Immat Gran (auto) 0.04 H Absolute Neuts (auto) 5.9 Absolute Nucleated RBC 0.000 Nucleated RBC % (auto) 0.0 ESR 2 PT 11.1 INR 1.0 APTT 27.7 Anion Gap 13 Estim Creat Clear Calc 141.6 Estimated GFR > 60 Random Glucose 117 H Lactic Acid 1.8 Calcium 8.6 Total Bilirubin 0.4 Direct Bilirubin 0.2 AST 25 ALT 24 Alkaline Phosphatase 68 C-Reactive Protein 0.50 B-Natriuretic Peptide 782 H Total Protein 6.9 Albumin 3.9 Hold Yellow Top See Note Influenza Type A (PCR) NEGATIVE Influenza Type B (PCR) NEGATIVE RSV RNA Qual (PCR) NEGATIVE SARS-CoV-2 RNA (RT-PCR) NEGATIVE Imaging Radiologist's Impressions: Chest x-ray 1. Possible pulmonary congestion. 2. Interstitial infiltrates and/or edema. 3. Small right pleural effusion. CT angiogram of the Chest 1. No evidence of pulmonary artery embolism. 2. Small bilateral pleural effusions, [id number]-left. 3. Interstitial edema is also present. Suspect congestive heart failure. 4. There is a mild degree of cardiomegaly. Assessment and Plan (1) Acute CHF: Qualifiers: Heart failure type: unspecified Qualified Code(s): I50.9 - Heart failure, unspecified Status: Acute (2) Acute dyspnea: Status: Acute (3) Elevated troponin I level: Status: Acute (4) Cardiomegaly: Status: Acute (5) Smoker unmotivated to quit: Status: Acute (6) Cocaine abuse: Status: Acute Plan Patient is a 33-year-old obese male with a history of asthma and polysubstance abuse (tobacco and cocaine) here with: # New CHF # Acute dyspnea # Cardiomegaly -he presents complaining of progressively worsening shortness of breath -initial studies show an elevated BNP at 782 -imaging studies show cardiomegaly and concerns for pulmonary vascular congestion -likely new onset CHF -this in setting of cardiomegaly and cocaine use raises concern for cocaine induced dilated cardiomyopathy -we will get a 2D echo in the morning -continue IV Lasix -consult cardiology # Elevated troponin I -initial troponin I was elevated at 83 with a repeat of 64 -likely due to demand-supply mismatch and not ACS -monitor # Polysubstance abuse -she admits to smoking half a pack of cigarettes a day and snorting cocaine -encourage smoking cessation and abstaining from cocaine -he may benefit from referral to addiction Services # Asthma -he has known history of asthma -however current symptoms are not consistent with asthma exacerbation -no indication for steroids or albuterol updrafts -treat as above for CHF DVT: SC Lovenox CODE STATUS: Full code Admission for at least 2 midnights for management of CHF exacerbation This note is constructed using voice recognition software. While every effort has been made to ensure accuracy, waste machine tender errors may have been included. Total time managing care of this patient today: 75 minutes. Quality Stroke Does the patient have a stroke diagnosis?: No VTE Prior VTE?: No VTE Risk Level:: Medical - moderate - high VTE Device Contraindication: Treatment Not Indicated VTE Drug Contraindication: N/A - Med Ordered
[2024-10-10] VITALS (8 sets, daily range): BP systolic 132–140; BP diastolic 52–106; PULSE 78–112; RESP 16–20; TEMP 36.5–37.2; O2SAT 92–96; BMI 32.5
--- NOTE | 2024-10-10 06:11 | PC.NURSE ---
pt requested crackers and water. given. educated breakfast will be given soon.
[2024-10-10 06:40] LABS: MANUAL DIFF FLAG NO
[2024-10-10 06:52] LABS: Basophils Absolute Auto 0.1 X10*3/uL (0.0-0.2); Basophils Percent Auto 0.6 % (0-2); Eosinophils Absolute Auto 0.2 X10*3/uL (0.0-0.4); Hematocrit 46.6 % (42.0-52.0); Hemoglobin 15.7 g/dl (14.0-18.0); Imm Gran Abs Auto 0.03 X10*3/uL (0.00-0.03); Imm Gran Pct Auto 0.3 % (0.0-0.4); Lymphocytes Absolute Auto 1.9 X10*3/uL (1.2-4.9); Lymphocytes Percent Auto 22.4 % (20-40); Mean Corpuscular HGB Conc 33.7 g/dl (31.0-36.0); Mean Corpuscular Hemoglobin 30.8 pg (27.0-33.0); Mean Corpuscular Volume 91.6 fL (80.0-98.0); Mean Platelet Volume 11.8 fL (9.4-12.4); Monocytes Absolute Auto 0.5 X10*3/uL (0.1-1.2); Monocytes Percent Auto 5.9 % (2-11); Neutrophils Absolute Auto 5.9 x10*3/uL (2.0-8.3); Neutrophils Percent Auto 68.8 % (45-73); Platelet Count 235 X10*3/uL (160-400); Red Blood Count 5.09 X10*6/uL (4.60-5.80); Red Cell Distribution Width 11.7 % (11.0-16.0); White Blood Count 8.6 X10*3/uL (4.8-10.8)
--- NOTE | 2024-10-10 07:00 | CA_ITS ---
Transthoracic Echocardiogram Patient (Last, First, Middle): Trung Le R Gender: Male Date of : 1990 Age: 33 Procedure Date: 10/10/2024 Procedure Type: Transthoracic Echocardiogram Location: ER Height: 187.96 cm Weight: 114.31 kg BSA: 2.40 m2 Heart Rate: bpm BP: 136 / 94 mmHg Training And Development Head: XU Referring MD: Dominguez Garrett MD Campaign Management Specialist: Edgardo Simmons MD Symptoms: new chf Study Quality: Adequate w contrast ECG Rhythm: Tachycardia Conclusions: - 1. Severely dilated left ventricle with severe LV systolic dysfunction with LVEF of 15-20% with elevated filling pressures 2. Moderately reduced right ventricular function 3. Moderately dilated left atrium 4. Mild mitral regurgitation 5. Normal RV systolic pressure with significantly elevated right atrial pressures 6. No gross pericardial effusion Findings Procedure Information Contrast agent, definity, is being given per protocol without apparent complications. Left Ventricle Severely increased left ventricular cavity size. There is normal left ventricular wall thickness. The left ventricular systolic function is severely decreased. The visually estimated ejection fraction is between 15 20%. There is severe global hypokinesis. Diastolic function is indeterminate on the basis of available data. Elevated filling pressures. E/E prime ratio is >15, consistent with elevated filling pressures. Right Ventricle Normal right ventricular cavity size. There is moderately decreased right ventricular systolic function. Atria The left atrium is moderately dilated. There is no evidence of interatrial shunt. The right atrium is normal in size. Aortic Valve Normal aortic valve structure and function. There is no aortic valve stenosis. There is no aortic valve regurgitation. Mitral Valve Normal mitral valve structure and function. There is mild mitral valve regurgitation. There is no mitral valve stenosis. Pulmonic Valve The pulmonic valve was not well visualized. Tricuspid Valve Likely normal tricuspid valve structure and function. There is mild tricuspid valve regurgitation. Significantly elevated right atrial pressure. There is no evidence of pulmonary hypertension. Great Vessels All visible segments of the aorta are normal in size. The pulmonary artery was not well visualized. Venous The inferior vena cava is normal in size and does not collapse with inspiration. Pericardium/Pleural There is no evidence of pericardial effusion. Prior Study Comparison No prior study available for comparison. Measurements 2D Linear Measurements IVSd: 0.84 0.6-0.9/0.6-1.0 cm LVIDd: 7.31 3.9-5.3/4.2-5.9 cm LVIDd Index: 3.05 2.4-3.2/2.2-3.1 cm/m2 LVIDs: 6.74 2.0-3.6 cm LVPWd: 0.94 0.7-1.1 cm LA Diam: 5.10 2.7-3.8/3.0-4.0 cm LAIDs Index: 2.13 1.5-2.3 cm/m2 LV Mass: 374.89 67-162/88-224 g LV Mass Index: 156.20 43-95/49-115 g/m2 LVOT Diam: 2.60 3.0+(-)1.3 cm 2D Systolic Function EF 4C: 19.10 >55% EF 2C: 17.70 >55% EF BiP: 19.70 >55% Mitral Valve MV Pk E: 0.91 MV Decel Time: 163.00 E'Medial: 3.59 E/E' Med: 25.40 PHT: 48.00 MVA PHT: 4.58 Decel [place]: 5.61 Aortic Valve AoV Pk Nirav: 0.98 AoV Mn Nirav: 0.71 AoV VTI: 0.16 AoV Pk Grad: 4.00 Aov Mn Grad: 2.00 JANE Cont.VTI: 3.81 LVOT LVOT Pk Nirav: 0.77 LVOT Mn Nirav: 0.51 LVOT VTI: 0.11 LVOT Pk Grad: 2.00 LVOT Mn Grad: 1.00 LVOT Diam: 2.60 LVOT Area: 5.31 Diastolic Function MV Pk E: 0.91 E'Medial: 3.59 E/E' Med: 25.40 Right Ventricle TAPSE (mm): 14.60 TVS' Nirav: 9.79 Tricuspid Valve TR Pk Nirav: 2.45 TR Pk Grad: 24.00 RA Press: 15.00 RVSP: 39.00 Great Vessels Aorta Sinus of Valsalva: 3.30 2.0-3.5 cm Ao Asc: 2.90 2.1-3.4 cm Ao Arch: 1.70 Pulmonary Valve PV Pk Nirav: 0.58 Peak PV Grad: 1.00 Updated in Other Vendor System with Status of Final Edgardo Simmons MD electronically signed on 10/10/2024 2:46:01 PM with status of Final
[2024-10-10 07:08] LABS: Alanine Aminotransferase 32 U/L (0-40); Albumin Level 3.8 g/dL (3.5-5.0); Alkaline Phosphatase 68 U/L (39-117); Anion Gap 12 (12-20); Aspartate Amino Transferase 29 U/L (5-37); Bilirubin Total 0.5 mg/dL (0.0-1.0); Blood Urea Nitrogen 13 mg/dL (9-16); Calcium 8.4 mg/dL (8.4-10.2); Carbon Dioxide 27 mmol/L (22-29); Chloride 106 mmol/L (96-108); Cholesterol 142 mg/dL (<200); Creatinine Clr Calc Pharmacy 140.1; Estimated Glomerular Filt Rate > 60; Glucose Random 109 mg/dL (60-115); HDL Cholesterol 30 mg/dL (>40); LDL Cholesterol Calculated 83 mg/dL (<100); Magnesium 1.7 mg/dL (1.6-2.6); Sodium 141 mmol/L (135-145); Total Protein 6.9 g/dL (6.5-8.0); Triglycerides 145 mg/dL (<150)
[2024-10-10 07:19] LABS: Thyroid Stimulating Hormone 1.03 uIU/mL (0.32-4.0)
[2024-10-10 09:31] LABS: Adenovirus PCR Not Detected (Not Detect.); Bordetella parapertussis PCR Not Detected (Not Detect.); Bordetella pertussis PCR Not Detected (Not Detect.); Chlamydia pneumoniae PCR Not Detected (Not Detect.); Coronavirus 229E PCR Not Detected (Not Detect.); Coronavirus HKU1 PCR Not Detected (Not Detect.); Coronavirus NL63 PCR Not Detected (Not Detect.); Coronavirus OC43 PCR Not Detected (Not Detect.); Human metapneumovirus PCR Not Detected (Not Detect.); Influenza A PCR Not Detected (Not Detect.); Influenza B PCR Not Detected (Not Detect.); Mycoplasma pneumoniae PCR Not Detected (Not Detect.); Parainfluenza 1 PCR Not Detected (Not Detect.); Parainfluenza 2 PCR Not Detected (Not Detect.); Parainfluenza 3 PCR Not Detected (Not Detect.); Parainfluenza 4 PCR Not Detected (Not Detect.); RSV PCR Not Detected (Not Detect.); Rhino/Enterovirus PCR Not Detected (Not Detect.)
[2024-10-10 09:56] LABS: SARS-CoV-2 PCR Not Detected (Not Detect.)
[2024-10-10] MEDS: Multivitamin TABLET 1 TAB PO (10:07)
[2024-10-10] MEDS: Furosemide 20 MG/2 ML VIAL IVPUSH (10:07)
--- NOTE | 2024-10-10 11:59 | P.CONCA_ITS ---
History of Present Illness History of Present Illness Date of Service: 10/10/24 Requesting physician: Gallo Flores Consult reason: congestive heart failure Chief complaint: new CHF Narrative: I was consulted to see Trung in cardiology consultation today due to new onset congestive heart failure. He is a 33-year-old male who presented to hospital with progressively increasing shortness of breath over last couple weeks and with shortness of breath eventually progressing to at rest and even at nighttime when he was laying down. He came to the emergency room and was noted to be in heart failure with BNP in the upper 700 range with chest x-ray finding consistent with congestive heart failure. Patient was never had any prior cardiac history. Has correction history of cocaine use as well as alcohol use although he says alcohol use as got better over the last many months. He has also not using cocaine as much as he was in the past. He has not had any recent viral illness. He has never had any prior cardiac history. No medications at home. Bedside echo preliminary ejection fraction around 19%. He has no prior history of cardiomyopathy. No family history of cardiomyopathy although mom had stenting. He is not sure as to the detailed history. Review of Systems 2 Constitutional: Constitutional: Reports lethargy and Reports weakness Eyes: Eyes: Reports no additional eye complaints Cardiovascular: Cardiovascular: Denies Abdominal Distension, Denies chest pain, Denies rapid heart rate, Denies leg edema, Denies palpitations, Reports dyspnea, Reports dyspnea on exertion and Reports orthopnea Respiratory: Respiratory: Reports cough, Reports dyspnea and Reports dyspnea on exertion Gastrointestinal: Gastrointestinal: Reports no additional gastrointestinal complaints Genitourinary: Genitourinary: Reports no additional male genitourinary complaints Musculoskeletal: Musculoskeletal: Reports no additional musculoskeletal complaints Integumentary/Breasts: Skin/Breast: Reports system reviewed and no additional complaints, except as docu Neurologic: Reports system reviewed and no additional complaints, except as documented and Reports weakness Endocrine: Endocrine: Reports no additional endocrine complaints and Denies palpitations PMFSH Past Medical History Medical History Smoker Asthma Surgical History Surgical History History of hand surgery Social History Social History Household Members: None Housing: House Do you presently have visiting nurse or other home services: No Patient Tobacco Use Status: Current everyday Tobacco user Tobacco use type: Cigarette Cigarette Packs Per Day: 0.5 Cigarettes Per Day: 10.0 e-Cigarette/Vaping Use: Currently Using Second Hand Smoke Exposure: No Substance Use Type: Crack/Cocaine and Marijuana Meds Allergies Allergy/AdvReac Type Severity Reaction Status Date / Time No Known Allergies Allergy Verified 10/09/24 13:48 Active Medications: Current Medications Acetaminophen (Acetaminophen 325 Mg Tablet) 650 mg PO Q6H PRN PRN Reason: Pain, Mild 1-3,fever,headache Al Hydroxide/Mg Hydroxide (Magnesium Hydrox/Alum Hydrox 30 Ml Oral.Susp) 30 ml PO Q4H PRN PRN Reason: Heartburn Calcium Carbonate (Calcium Carbonate 750 Mg Tab.Chew) 750 mg PO Q4H PRN PRN Reason: Heartburn Enoxaparin Sodium (Enoxaparin Sodium 40 Mg/0.4 Ml Syringe) 40 mg SUBCUT Q24H [facility] Last Admin: 10/10/24 10:03 Dose: Not Given Furosemide (Furosemide 20 Mg/2 Ml Vial) 20 mg IVPUSH BID@0900,1800 [facility]; Protocol Last Admin: 10/10/24 10:07 Dose: 20 mg Magnesium Hydroxide (Milk Of Magnesia 30 Ml Oral.Susp) 30 ml PO DAILY PRN PRN Reason: Constipation Melatonin (Melatonin 3 Mg Tablet) 6 mg PO BEDTIME PRN PRN Reason: Insomnia Multivitamins/Vitamin C (Multivitamin Tablet) 1 tab PO DAILY [facility] Last Admin: 10/10/24 10:07 Dose: 1 tab Nitroglycerin (Nitroglycerin 0.4 Mg Tab.Subl) 0.4 mg SUBLINGUAL Q5MX3 PRN PRN Reason: Chest Pain Ondansetron HCl (Ondansetron Hcl 4 Mg/2 Ml Vial) 4 mg IVPUSH Q8H PRN PRN Reason: Nausea and Vomiting Oxycodone HCl (Oxycodone Hcl Immed Release 5 Mg Tablet) 5 mg PO Q6H PRN PRN Reason: Pain, Severe (Pain Scale 7-10) Senna (Sennosides 8.6 Mg Tablet) 17.2 mg PO BEDTIME PRN PRN Reason: Constipation Sodium Chloride (0.9 % Sodium Chloride Flush 3 Ml Syringe) 3 ml IVFLUSH QSHIFT [facility] Last Admin: 10/10/24 07:05 Dose: Not Given Home Medications ?Medication ?Instructions ?Recorded ?Confirmed ?Last Taken ?Type multivitamin 1 tab PO DAILY 10/09/24 10/09/24 2 Weeks Ago History ~09/25/24 Physical Exam 2 Vital Signs: Vital Signs: Last Vital Signs Temp 98.9 F 10/10/24 11:09 Pulse 87 10/10/24 11:09 Resp 20 10/10/24 11:09 BP 136/98 H 10/10/24 11:09 Pulse Ox 96 10/10/24 11:09 O2 Del Method Room Air 10/10/24 11:09 BMI result Body Mass Index 32.5 Const: General: cooperative, comfortable, well developed, alert, awake and in distress mild and respiratory Nutritional Appearance: well nourished and overweight Orientation/consciousness: patient oriented x3 HEENT: Head: Yes normocephalic and Yes atraumatic Neck: Neck: Yes trachea midline, Yes supple and Yes JVD Resp: Auscultation: rales bilateral Cardio: Jugular venous distension: JVD Palpation: abnormal PMI displaced PMI Rate: regular rate Rhythm: regular rhythm Heart sounds: S1 normal heart sound present, S2 normal heart sound present, no click, Gallop heart sound present (S3 gallop) and no murmurs GI: Auscultation: normal bowel sounds Skin: General skin exam: no rashes or lesions noted and other (Diffuse tattoos) Neuro: General: patient oriented x3 and no focal motor deficits Extrem: General: No clubbing, No cyanosis and Yes edema Psych: Appearance: grossly normal Objective Labs and Meds 10/10/24 06:08 10/10/24 06:08 Lab results: Laboratory Results - last 24 hr 10/09/24 10/09/24 10/09/24 14:20 17:16 17:17 WBC 8.7 RBC 4.87 Hgb 15.0 Hct 44.9 MCV 92.2 MCH 30.8 MCHC 33.4 RDW 11.7 Plt Count 205 MPV 11.1 Immature Gran % (Auto) 0.5 H Neut % (Auto) 67.6 Lymph % (Auto) 24.7 [place] % (Auto) 5.5 Eos % (Auto) 1.4 Baso % (Auto) 0.3 Lymph # (Auto) 2.1 [place] # (Auto) 0.5 Eos # (Auto) 0.1 Baso # (Auto) 0.0 Abs Immat Gran (auto) 0.04 H Absolute Neuts (auto) 5.9 Absolute Nucleated RBC 0.000 Nucleated RBC % (auto) 0.0 ESR 2 PT 11.1 INR 1.0 APTT 27.7 Sodium 143 Potassium 4.6 Chloride 109 H Carbon Dioxide 26 Anion Gap 13 BUN 16 Creatinine 0.98 Estim Creat Clear Calc 141.6 Estimated GFR > 60 Random Glucose 117 H Lactic Acid 1.8 Calcium 8.6 Magnesium Total Bilirubin 0.4 Direct Bilirubin 0.2 AST 25 ALT 24 Alkaline Phosphatase 68 Troponin I High Sens 83.6 H 64.3 H C-Reactive Protein 0.50 B-Natriuretic Peptide 782 H Total Protein 6.9 Albumin 3.9 Triglycerides Cholesterol LDL Cholesterol, Calc HDL Cholesterol TSH Hold Yellow Top See Note Respiratory Panel Alvarez Adenovirus (Rapid PCR) B.pert (TEM-PCR) B.parapertussis DNA PCR C. pneumoniae DNA (PCR) Coronavirus OC43 (PCR) Coronavirus HKU1 (PCR) Coronavirus 229E (PCR) Coronavirus NL63 (PCR) Human Metapneumovir PCR Influenza A (RT-PCR) Influenza Type A (PCR) NEGATIVE Influenza B (RT-PCR) Influenza Type B (PCR) NEGATIVE M. pneumoniae (PCR) Parainfluenza 1 (PCR) Parainfluenza 2 (PCR) Parainfluenza 3 (PCR) Parainfluenza 4 (PCR) RSV (PCR) RSV RNA Qual (PCR) NEGATIVE Entero/Rhino (PCR) SARS-CoV-2 RNA (RT-PCR) NEGATIVE 10/09/24 10/10/24 17:18 06:08 WBC 8.6 RBC 5.09 Hgb 15.7 Hct 46.6 MCV 91.6 MCH 30.8 MCHC 33.7 RDW 11.7 Plt Count 235 MPV 11.8 Immature Gran % (Auto) 0.3 Neut % (Auto) 68.8 Lymph % (Auto) 22.4 [place] % (Auto) 5.9 Eos % (Auto) 2.0 Baso % (Auto) 0.6 Lymph # (Auto) 1.9 [place] # (Auto) 0.5 Eos # (Auto) 0.2 Baso # (Auto) 0.1 Abs Immat Gran (auto) 0.03 Absolute Neuts (auto) 5.9 Absolute Nucleated RBC 0.000 Nucleated RBC % (auto) 0.0 ESR PT INR APTT Sodium 141 Potassium 4.0 Chloride 106 Carbon Dioxide 27 Anion Gap 12 BUN 13 Creatinine 0.99 Estim Creat Clear Calc 140.1 Estimated GFR > 60 Random Glucose 109 Lactic Acid Calcium 8.4 Magnesium 1.7 Total Bilirubin 0.5 Direct Bilirubin AST 29 ALT 32 Alkaline Phosphatase 68 Troponin I High Sens C-Reactive Protein B-Natriuretic Peptide Total Protein 6.9 Albumin 3.8 Triglycerides 145 Cholesterol 142 LDL Cholesterol, Calc 83 HDL Cholesterol 30 L TSH 1.03 Hold Yellow Top Respiratory Panel Alvarez See Note Adenovirus (Rapid PCR) Not Detected B.pert (TEM-PCR) Not Detected B.parapertussis DNA PCR Not Detected C. pneumoniae DNA (PCR) Not Detected Coronavirus OC43 (PCR) Not Detected Coronavirus HKU1 (PCR) Not Detected Coronavirus 229E (PCR) Not Detected Coronavirus NL63 (PCR) Not Detected Human Metapneumovir PCR Not Detected Influenza A (RT-PCR) Not Detected Influenza Type A (PCR) Influenza B (RT-PCR) Not Detected Influenza Type B (PCR) M. pneumoniae (PCR) Not Detected Parainfluenza 1 (PCR) Not Detected Parainfluenza 2 (PCR) Not Detected Parainfluenza 3 (PCR) Not Detected Parainfluenza 4 (PCR) Not Detected RSV (PCR) Not Detected RSV RNA Qual (PCR) Entero/Rhino (PCR) Not Detected SARS-CoV-2 RNA (RT-PCR) Not Detected Assessment and Plan (1) Acute CHF: Qualifiers: Heart failure type: unspecified Qualified Code(s): I50.9 - Heart failure, unspecified Status: Acute Acute decompensated congestive heart failure with marked LV systolic dysfunction this young man, most likely cause for LV systolic dysfunction appears to be related to use of cardiotoxic agent such as cocaine and alcohol. Dilated cardiomyopathy is possible although there is no clear family history. Ischemia is less likely. Post viral cardiomyopathy is likely although he denies any recent viral syndrome. Idiopathic cardiomyopathy is also likely. Clinically appears to be decompensated. Continue IV diuresis. Strict intake and output chart needs to be pursued. Had a detailed discussion with him about cardiomyopathy and associated comorbidities and if not treated well early . He understands. He is very motivated to pursue aggressive treatment. Consider addiction counseling although he does not appear to be withdrawing at this point time. He understands to not use alcohol or cocaine. I would start him on Entresto 24-26 mg b.i.d. as neurohormonal modulator as as well as vaso dilator. Continue monitor renal function closely and electrolytes closely. Also add Jardiance 10 mg to his regimen. Once he is better compensated will also start him on carvedilol therapy as well as spironolactone therapy. Will continue to follow with you. Greater than 40 minutes was spent in managing his complex care and advising him and counseling him. Procedures Date of Service Date of Service: 10/10/24
[2024-10-10] MEDS: oxyCODONE HCl Immed Release 5 MG TABLET PO ×2 (13:02→20:34)
--- NOTE | 2024-10-10 14:05 | HO.PM.IMPN ---
Subjective Subjective Date of Service: 10/10/24 Interval History: seen and evaluated this morning feels little better reports PND and orthopnea no other events Review of Systems Review of Systems: Yes all other systems are reviewed and are negative Physical Exam Vital Signs: Vital Signs: Last Vital Signs Temp 98.9 F 10/10/24 11:09 Pulse 87 10/10/24 11:09 Resp 20 10/10/24 11:09 BP 136/98 H 10/10/24 11:09 Pulse Ox 96 10/10/24 11:09 O2 Del Method Room Air 10/10/24 11:09 BMI result Body Mass Index 32.5 Const: Other: Constitutional : Awake, interactive, not in distress Neck : Normal inspection, Supple Cardiovascular : RRR, no JVP, +1 lower extremity edema Respiratory : good bilateral air entry, basal fine crackles, Gastrointestinal: soft, lax, Normal bowel sounds, Non tender Skin : Warm, Dry Neurological : Alert & oriented x3, No focal deficit Objective Data Active Medications Acetaminophen (Acetaminophen 325 Mg Tablet) 650 mg PO Q6H PRN PRN Reason: Pain, Mild 1-3,fever,headache Al Hydroxide/Mg Hydroxide (Magnesium Hydrox/Alum Hydrox 30 Ml Oral.Susp) 30 ml PO Q4H PRN PRN Reason: Heartburn Calcium Carbonate (Calcium Carbonate 750 Mg Tab.Chew) 750 mg PO Q4H PRN PRN Reason: Heartburn Enoxaparin Sodium (Enoxaparin Sodium 40 Mg/0.4 Ml Syringe) 40 mg SUBCUT Q24H [facility] Last Admin: 10/10/24 10:03 Dose: Not Given Documented By: GENNA Non-Admin Reason: Patient Refused Furosemide (Furosemide 20 Mg/2 Ml Vial) 20 mg IVPUSH BID@0900,1800 [facility]; Protocol Last Admin: 10/10/24 10:07 Dose: 20 mg Documented By: GENNA Magnesium Hydroxide (Milk Of Magnesia 30 Ml Oral.Susp) 30 ml PO DAILY PRN PRN Reason: Constipation Melatonin (Melatonin 3 Mg Tablet) 6 mg PO BEDTIME PRN PRN Reason: Insomnia Multivitamins/Vitamin C (Multivitamin Tablet) 1 tab PO DAILY [facility] Last Admin: 10/10/24 10:07 Dose: 1 tab Documented By: GENNA Nitroglycerin (Nitroglycerin 0.4 Mg Tab.Subl) 0.4 mg SUBLINGUAL Q5MX3 PRN PRN Reason: Chest Pain Ondansetron HCl (Ondansetron Hcl 4 Mg/2 Ml Vial) 4 mg IVPUSH Q8H PRN PRN Reason: Nausea and Vomiting Oxycodone HCl (Oxycodone Hcl Immed Release 5 Mg Tablet) 5 mg PO Q6H PRN PRN Reason: Pain, Severe (Pain Scale 7-10) Last Admin: 10/10/24 13:02 Dose: 5 mg Documented By: ROE Senna (Sennosides 8.6 Mg Tablet) 17.2 mg PO BEDTIME PRN PRN Reason: Constipation Sodium Chloride (0.9 % Sodium Chloride Flush 3 Ml Syringe) 3 ml IVFLUSH QSHIFT [facility] Last Admin: 10/10/24 07:05 Dose: Not Given Documented By: GENNA Non-Admin Reason: Previously Administered Labs 10/10/24 06:08 10/10/24 06:08 Labs: Laboratory Results - last 24 hr 10/09/24 10/09/24 10/09/24 14:20 17:16 17:17 MCV 92.2 MCH 30.8 MCHC 33.4 RDW 11.7 Plt Count 205 MPV 11.1 Immature Gran % (Auto) 0.5 H Neut % (Auto) 67.6 Lymph % (Auto) 24.7 [place] % (Auto) 5.5 Eos % (Auto) 1.4 Baso % (Auto) 0.3 Lymph # (Auto) 2.1 [place] # (Auto) 0.5 Eos # (Auto) 0.1 Baso # (Auto) 0.0 Abs Immat Gran (auto) 0.04 H Absolute Neuts (auto) 5.9 Absolute Nucleated RBC 0.000 Nucleated RBC % (auto) 0.0 ESR 2 PT 11.1 INR 1.0 APTT 27.7 Anion Gap 13 Estim Creat Clear Calc 141.6 Estimated GFR > 60 Random Glucose 117 H Lactic Acid 1.8 Calcium 8.6 Magnesium Total Bilirubin 0.4 Direct Bilirubin 0.2 AST 25 ALT 24 Alkaline Phosphatase 68 C-Reactive Protein 0.50 B-Natriuretic Peptide 782 H Total Protein 6.9 Albumin 3.9 Triglycerides Cholesterol LDL Cholesterol, Calc HDL Cholesterol TSH Hold Yellow Top See Note Respiratory Panel Alvarez Adenovirus (Rapid PCR) B.pert (TEM-PCR) B.parapertussis DNA PCR C. pneumoniae DNA (PCR) Coronavirus OC43 (PCR) Coronavirus HKU1 (PCR) Coronavirus 229E (PCR) Coronavirus NL63 (PCR) Human Metapneumovir PCR Influenza A (RT-PCR) Influenza Type A (PCR) NEGATIVE Influenza B (RT-PCR) Influenza Type B (PCR) NEGATIVE M. pneumoniae (PCR) Parainfluenza 1 (PCR) Parainfluenza 2 (PCR) Parainfluenza 3 (PCR) Parainfluenza 4 (PCR) RSV (PCR) RSV RNA Qual (PCR) NEGATIVE Entero/Rhino (PCR) SARS-CoV-2 RNA (RT-PCR) NEGATIVE 10/09/24 10/10/24 17:18 06:08 MCV 91.6 MCH 30.8 MCHC 33.7 RDW 11.7 Plt Count 235 MPV 11.8 Immature Gran % (Auto) 0.3 Neut % (Auto) 68.8 Lymph % (Auto) 22.4 [place] % (Auto) 5.9 Eos % (Auto) 2.0 Baso % (Auto) 0.6 Lymph # (Auto) 1.9 [place] # (Auto) 0.5 Eos # (Auto) 0.2 Baso # (Auto) 0.1 Abs Immat Gran (auto) 0.03 Absolute Neuts (auto) 5.9 Absolute Nucleated RBC 0.000 Nucleated RBC % (auto) 0.0 ESR PT INR APTT Anion Gap 12 Estim Creat Clear Calc 140.1 Estimated GFR > 60 Random Glucose 109 Lactic Acid Calcium 8.4 Magnesium 1.7 Total Bilirubin 0.5 Direct Bilirubin AST 29 ALT 32 Alkaline Phosphatase 68 C-Reactive Protein B-Natriuretic Peptide Total Protein 6.9 Albumin 3.8 Triglycerides 145 Cholesterol 142 LDL Cholesterol, Calc 83 HDL Cholesterol 30 L TSH 1.03 Hold Yellow Top Respiratory Panel Alvarez See Note Adenovirus (Rapid PCR) Not Detected B.pert (TEM-PCR) Not Detected B.parapertussis DNA PCR Not Detected C. pneumoniae DNA (PCR) Not Detected Coronavirus OC43 (PCR) Not Detected Coronavirus HKU1 (PCR) Not Detected Coronavirus 229E (PCR) Not Detected Coronavirus NL63 (PCR) Not Detected Human Metapneumovir PCR Not Detected Influenza A (RT-PCR) Not Detected Influenza Type A (PCR) Influenza B (RT-PCR) Not Detected Influenza Type B (PCR) M. pneumoniae (PCR) Not Detected Parainfluenza 1 (PCR) Not Detected Parainfluenza 2 (PCR) Not Detected Parainfluenza 3 (PCR) Not Detected Parainfluenza 4 (PCR) Not Detected RSV (PCR) Not Detected RSV RNA Qual (PCR) Entero/Rhino (PCR) Not Detected SARS-CoV-2 RNA (RT-PCR) Not Detected Assessment and Plan (1) Elevated troponin I level: Status: Acute (2) Cocaine abuse: Status: Acute (3) Acute dyspnea: Status: Acute (4) Acute CHF: Status: Acute Plan Patient is a 33-year-old obese male with a history of asthma and polysubstance abuse (tobacco and cocaine) here with: # acute systolic CHF with dyspnea DDx: cocaine\ Alcohol use , post-viral, idiopathic Echo showing low EF of 20% continue IV Lasix Start Entreston and Jardiance Cardiology input appreciated, avoid Alcohol and cocaine, Add Carvedilol and Spironolactone later I\O # Elevated troponin I initial troponin I was elevated at 83 with a repeat of 64 likely due to demand-supply mismatch and not ACS # Polysubstance abuse smokes half a pack of cigarettes a day and snorting cocaine encouraged smoking cessation and abstaining from cocaine addiction team eval # Asthma, paroxysmal not in asthma exacerbation PRN inhaler DVT: NC Lovenox Admission for overnight for management of CHF exacerbation Quality Stroke Does the patient have a stroke diagnosis?: No VTE Prior VTE?: No VTE Risk Level:: Medical - moderate - high VTE Device Contraindication: Treatment Not Indicated VTE Drug Contraindication: N/A - Med Ordered
--- NOTE | 2024-10-10 14:50 | MHC.CM.PN ---
WENT TO MEET WITH PT PT WAS ASLEEP UNABLE TO WAKE PT AFTER SEVERAL ATTEMPTS. WILL REVISIT.
[2024-10-10 18:09] LABS: Amphetamine Screen Urine Not Detected (Not Detect); Barbiturates, Urine Not Detected (Not Detect); Benzodiazepines Screen Urine Not Detected (Not Detect); Buprenorphine Scr Not Detected (Not Detect); Cannabinoid Screen Urine Not Detected (Not Detect); Cocaine Screen Urine POSITIVE (Not Detect); Fentanyl, urine Not Detected (Not Detect); Methadone Screen, Urine Not Detected (Not Detect); Opiate Screen Urine Not Detected (Not Detect); Oxycodone Screen Urine Positive (Not Detect); Phencyclidine Screen Urine Not Detected (Not Detect)
[2024-10-10] MEDS: Furosemide 20 MG/2 ML VIAL 40 MG IVPUSH (18:37)
[2024-10-10] MEDS: 0.9 % Sodium Chloride Flush 3 ML SYRINGE IVFLUSH (18:41)
[2024-10-10] MEDS: Sacubitril/Valsartan 24/26 1 TAB TABLET PO (20:34)
[2024-10-11 03:59] VITALS: BP 128/81; PULSE 51; RESP 17; TEMP 37.1; O2SAT 94
[2024-10-11 08:00] VITALS: BP 130/75; PULSE 102; RESP 20; TEMP 36.1; O2SAT 94
[2024-10-11 09:03] LABS: Anion Gap 13 (12-20); Blood Urea Nitrogen 12 mg/dL (9-16); Calcium 9.1 mg/dL (8.4-10.2); Carbon Dioxide 28 mmol/L (22-29); Chloride 102 mmol/L (96-108); Creatinine Clr Calc Pharmacy 144.7; Estimated Glomerular Filt Rate > 60; Glucose Random 102 mg/dL (60-115); Potassium 3.9 mmol/L (3.3-5.1); Sodium 139 mmol/L (135-145)
[2024-10-11 09:06] LABS: B Type Natriuretic Peptide 510 pg/mL (<100)
[2024-10-11] MEDS: Furosemide 20 MG/2 ML VIAL 40 MG IVPUSH ×2 (09:24→18:21)
[2024-10-11] MEDS: Sacubitril/Valsartan 24/26 1 TAB TABLET PO ×2 (09:24→20:43)
[2024-10-11] MEDS: Multivitamin TABLET 1 TAB PO (09:24)
[2024-10-11] MEDS: oxyCODONE HCl Immed Release 5 MG TABLET PO ×3 (09:24→21:54)
[2024-10-11] MEDS: Empagliflozin 10 MG TABLET PO (09:24)
[2024-10-11] MEDS: 0.9 % Sodium Chloride Flush 3 ML SYRINGE IVFLUSH ×2 (09:24→15:50)
--- NOTE | 2024-10-11 09:58 | MHC.CM.PN ---
IMM 10/11/24, Pt rents a room, he does not have home health services. He is able to arrange transport at [place], he does not have a PCP, brochure given. DCP: home, self care. CM to follow for [place] needs.
--- NOTE | 2024-10-11 11:41 | HO.PM.IMPN ---
Subjective Subjective Date of Service: 10/11/24 Interval History: seen and evaluated this morning feels little better improving PND and orthopnea no other events Review of Systems Review of Systems: Yes all other systems are reviewed and are negative Physical Exam Vital Signs: Vital Signs: Last Vital Signs Temp 97.0 F 10/11/24 08:00 Pulse 102 H 10/11/24 08:00 Resp 20 10/11/24 08:00 BP 130/75 10/11/24 08:00 Pulse Ox 94 10/11/24 08:00 O2 Del Method Room Air 10/11/24 08:00 BMI result Body Mass Index 32.5 Const: Other: Constitutional : Awake, interactive, not in distress Neck : Normal inspection, Supple Cardiovascular : RRR, no JVP, trace lower extremity edema Respiratory : good bilateral air entry, basal fine crackles, Gastrointestinal: soft, lax, Normal bowel sounds, Non tender Skin : Warm, Dry Neurological : Alert & oriented x3, No focal deficit Objective Data Active Medications Acetaminophen (Acetaminophen 325 Mg Tablet) 650 mg PO Q6H PRN PRN Reason: Pain, Mild 1-3,fever,headache Al Hydroxide/Mg Hydroxide (Magnesium Hydrox/Alum Hydrox 30 Ml Oral.Susp) 30 ml PO Q4H PRN PRN Reason: Heartburn Calcium Carbonate (Calcium Carbonate 750 Mg Tab.Chew) 750 mg PO Q4H PRN PRN Reason: Heartburn Empagliflozin (Empagliflozin 10 Mg Tablet) 10 mg PO DAILY [facility] Last Admin: 10/11/24 09:24 Dose: 10 mg Documented By: ROE Enoxaparin Sodium (Enoxaparin Sodium 40 Mg/0.4 Ml Syringe) 40 mg SUBCUT Q24H [facility] Last Admin: 10/11/24 09:25 Dose: Not Given Documented By: ROE Non-Admin Reason: Patient Refused Furosemide (Furosemide 20 Mg/2 Ml Vial) 40 mg IVPUSH BID@0900,1800 [facility]; Protocol Last Admin: 10/11/24 09:24 Dose: 40 mg Documented By: ROE Magnesium Hydroxide (Milk Of Magnesia 30 Ml Oral.Susp) 30 ml PO DAILY PRN PRN Reason: Constipation Melatonin (Melatonin 3 Mg Tablet) 6 mg PO BEDTIME PRN PRN Reason: Insomnia Multivitamins/Vitamin C (Multivitamin Tablet) 1 tab PO DAILY [facility] Last Admin: 10/11/24 09:24 Dose: 1 tab Documented By: ROE Nitroglycerin (Nitroglycerin 0.4 Mg Tab.Subl) 0.4 mg SUBLINGUAL Q5MX3 PRN PRN Reason: Chest Pain Ondansetron HCl (Ondansetron Hcl 4 Mg/2 Ml Vial) 4 mg IVPUSH Q8H PRN PRN Reason: Nausea and Vomiting Oxycodone HCl (Oxycodone Hcl Immed Release 5 Mg Tablet) 5 mg PO Q6H PRN PRN Reason: Pain, Severe (Pain Scale 7-10) Last Admin: 10/11/24 09:24 Dose: 5 mg Documented By: ROE Sacubitril/Valsartan (Sacubitril/Valsartan 1 Tab Tablet) 1 tab PO BID [facility]; Protocol Last Admin: 10/11/24 09:24 Dose: 1 tab Documented By: ROE Senna (Sennosides 8.6 Mg Tablet) 17.2 mg PO BEDTIME PRN PRN Reason: Constipation Sodium Chloride (0.9 % Sodium Chloride Flush 3 Ml Syringe) 3 ml IVFLUSH QSHIFT [facility] Last Admin: 10/11/24 09:24 Dose: 3 ml Documented By: ROE Labs 10/10/24 06:08 10/11/24 08:15 Labs: Laboratory Results - last 24 hr 10/09/24 10/11/24 18:14 08:15 Anion Gap 13 Estim Creat Clear Calc 144.7 Estimated GFR > 60 Random Glucose 102 Calcium 9.1 D B-Natriuretic Peptide 510 H Urine Opiates Screen Not Detected Ur Buprenorphine Scrn Not Detected Ur Oxycodone Screen Positive H Urine Methadone Screen Not Detected Urine Fentanyl Screen Not Detected Ur Barbiturates Screen Not Detected Ur Phencyclidine Scrn Not Detected Ur Amphetamines Screen Not Detected U Benzodiazepines Scrn Not Detected Urine Cocaine Screen POSITIVE H U Marijuana (THC) Screen Not Detected Microbiology Microbiology Results: Microbiology 10/09/24 17:16 Blood Culture - Preliminary Blood - Venous No growth after 24 hours. 10/09/24 17:16 Blood Culture - Preliminary Blood - Venous No growth after 24 hours. Assessment and Plan (1) Elevated troponin I level: Status: Acute (2) Cocaine abuse: Status: Acute (3) Cardiomegaly: Status: Acute (4) Acute CHF: Status: Acute Plan Patient is a 33-year-old obese male with a history of asthma and polysubstance abuse (tobacco and cocaine) here with: # acute systolic CHF with dyspnea DDx: cocaine\ Alcohol use , post-viral, idiopathic Echo showing low EF of 20% continue IV Lasix Continue Entreston and Jardiance add Spironolactone Cardiology input appreciated, avoid Alcohol and cocaine, Add Carvedilol and Spironolactone later I\O # Elevated troponin I initial troponin I was elevated at 83 with a repeat of 64 likely due to demand-supply mismatch and not ACS # Polysubstance abuse smokes half a pack of cigarettes a day and snorting cocaine encouraged smoking cessation and abstaining from cocaine addiction team eval # Asthma, paroxysmal not in asthma exacerbation PRN inhaler DVT: CT Lovex Admission for overnight for management of CHF exacerbation with IV Diuresis and cardiolgoy follow up Quality Stroke Does the patient have a stroke diagnosis?: No VTE Prior VTE?: No VTE Risk Level:: Medical - moderate - high VTE Device Contraindication: Treatment Not Indicated VTE Drug Contraindication: N/A - Med Ordered
--- NOTE | 2024-10-11 11:42 | PM.PNCARD ---
Subjective Subjective Date of Service: 10/11/24 Principal diagnosis: Decompensated congestive heart failure, cardiomyopathy. Interval history: Patient was feeling better. Shortness of breath is improved. Overall negative balance not well recorded although patient says he has been diuresing well. Renal function stable. Blood pressure is adequate. Tolerating medications. Noted to have frequent PVCs on the monitor no nonsustained VT Review of Systems Constitutional: Reports no additional constitutional complaints Cardiovascular: Denies chest pain, Denies lightheadedness, Denies Loss of Consciousness, Denies palpitations, Reports dyspnea on exertion and Denies orthopnea Respiratory: Reports no additional respiratory complaints and Reports dyspnea on exertion Endocrine: Denies palpitations Physical Exam Vital Signs: Last Vital Signs Temp 97.0 F 10/11/24 08:00 Pulse 102 H 10/11/24 08:00 Resp 20 10/11/24 08:00 BP 130/75 10/11/24 08:00 Pulse Ox 94 10/11/24 08:00 O2 Del Method Room Air 10/11/24 08:00 BMI result Body Mass Index 32.5 Const General: cooperative, comfortable, well developed, alert, awake and in distress mild and respiratory Nutritional Appearance: well nourished and overweight Orientation/consciousness: patient oriented x3 HEENT Head: Yes normocephalic and Yes atraumatic Neck Neck: Yes trachea midline, Yes supple and Yes JVD Resp Effort & Inspection: normal respiratory effort Auscultation: clear to auscultation bilaterally Cardio Jugular venous distension: JVD Palpation: abnormal PMI displaced PMI Rate: regular rate Rhythm: regular rhythm Heart sounds: S1 normal heart sound present, S2 normal heart sound present, no click, Gallop heart sound present (S3 gallop) and no murmurs GI Auscultation: normal bowel sounds Skin General skin exam: no rashes or lesions noted and other (Diffuse tattoos) Neuro General: patient oriented x3 and no focal motor deficits Extrem General: No clubbing, No cyanosis and Yes edema Psych Appearance: grossly normal Objective Labs and Meds 10/10/24 06:08 10/11/24 08:15 Lab results: Laboratory Results - last 24 hr 10/09/24 10/11/24 18:14 08:15 Sodium 139 Potassium 3.9 Chloride 102 Carbon Dioxide 28 Anion Gap 13 BUN 12 Creatinine 0.96 Estim Creat Clear Calc 144.7 Estimated GFR > 60 Random Glucose 102 Calcium 9.1 D B-Natriuretic Peptide 510 H Urine Opiates Screen Not Detected Ur Buprenorphine Scrn Not Detected Ur Oxycodone Screen Positive H Urine Methadone Screen Not Detected Urine Fentanyl Screen Not Detected Ur Barbiturates Screen Not Detected Ur Phencyclidine Scrn Not Detected Ur Amphetamines Screen Not Detected U Benzodiazepines Scrn Not Detected Urine Cocaine Screen POSITIVE H U Marijuana (THC) Screen Not Detected Progress Note: A&P Assessment and plan (1) Acute CHF: Status: Acute Assessment and Plan: Acute congestive heart failure in this young man with 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 LV significantly dilated. At this point time will continue with Oniel Hodges. Please add spironolactone 25 mg to his regimen. Continue IV diuresis. Better intake and output chart needs to be monitor. Follow-up BNP and BNP tomorrow and anticipate if doing well and BNP improved significantly potentially discharge tomorrow. If appears more euvolemic tomorrow will add carvedilol therapy to his regimen. Will follow with him Time Spent With Patient Time: Total time managing care of this patient today ____ minutes. Progress Note: Quality Stroke Does the patient have a stroke diagnosis?: No Procedures Date of Service Date of Service: 10/11/24
[2024-10-11 11:55] VITALS: BP 113/74; PULSE 88; RESP 20; TEMP 36.1; O2SAT 94
[2024-10-11] MEDS: Spironolactone 25 MG TABLET PO (12:48)
[2024-10-11 15:28] VITALS: BP 113/71; PULSE 82; RESP 18; TEMP 36.2; O2SAT 94
[2024-10-11 19:52] VITALS: BP 110/62; PULSE 95; RESP 16; TEMP 36.3; O2SAT 96
[2024-10-11 23:31] VITALS: BP 108/64; PULSE 62; RESP 16; TEMP 36.5; O2SAT 97
[2024-10-12 03:53] VITALS: BP 110/70; PULSE 67; RESP 17; TEMP 36.3; O2SAT 96
[2024-10-12 07:39] LABS: Anion Gap 17 (12-20); Blood Urea Nitrogen 20 mg/dL (9-16); Calcium 9.3 mg/dL (8.4-10.2); Carbon Dioxide 26 mmol/L (22-29); Chloride 100 mmol/L (96-108); Creatinine Clr Calc Pharmacy 140.3; Estimated Glomerular Filt Rate > 60; Glucose Random 116 mg/dL (60-115); Potassium 3.7 mmol/L (3.3-5.1); Sodium 139 mmol/L (135-145)
[2024-10-12 07:41] LABS: B Type Natriuretic Peptide 160 pg/mL (<100)
[2024-10-12 08:00] VITALS: BP 105/65; PULSE 56; RESP 20; TEMP 36.3; O2SAT 96
[2024-10-12] MEDS: Furosemide 20 MG/2 ML VIAL 40 MG IVPUSH (09:09)
[2024-10-12] MEDS: Sacubitril/Valsartan 24/26 1 TAB TABLET PO (09:09)
[2024-10-12] MEDS: 0.9 % Sodium Chloride Flush 3 ML SYRINGE IVFLUSH (09:09)
[2024-10-12] MEDS: Multivitamin TABLET 1 TAB PO (09:09)
[2024-10-12] MEDS: Spironolactone 25 MG TABLET PO (09:09)
[2024-10-12] MEDS: oxyCODONE HCl Immed Release 5 MG TABLET PO (09:09)
[2024-10-12] MEDS: Empagliflozin 10 MG TABLET PO (09:09)
--- NOTE | 2024-10-12 12:29 | PM.DS ---
DS: Providers Provider Date of Service: 10/12/24 Date of admission: 10/09/24 23:27 Date of discharge: 10/12/24 Primary care physician: None Physician Consults: 10/10/24 06:07 Consult to Cardiology Routine Consulting Provider: [facility] [place] [facility] Reason for consultation: New CHF 10/10/24 07:56 Addiction Medicine Routine Consulting Provider: Addiction Covering Reason for consultation: cocaine abuse DS: Diagnosis Discharge Diagnosis (1) Acute CHF: Status: Acute (2) Cardiomegaly: Status: Acute (3) Elevated troponin I level: Status: Acute (4) Cocaine abuse: Status: Acute (5) Smoker unmotivated to quit: Status: Acute (6) Acute dyspnea: Status: Acute DS: Summary Hospital Course Hospital Course: Admission note HPI Patient is a 33-year-old obese male with a past medical history of asthma and was an active smoker and also cocaine user who presents to emergency room complaining of progressively worsening dyspnea for the last 3 weeks. Symptoms were initially with a exertion but now he has symptoms even at rest. He describes being ill recently with upper respiratory symptoms and since then his breathing has become worse. He also describes associated chest pressure/tightness stating that at times it hurts to breathe and he can not catch his breath. He has never had this before. On arrival to the emergency room he was found with stable vital signs. Initial blood work revealed mildly elevated troponin I added 3.6 while his BNP was elevated [address] angiogram of the chest did not show any PE but instead revealed cardiomegaly with bilateral pleural effusions and concerns for CHF. An assessment of new onset CHF was made and admission requested. Hospital course The patient was admitted for evaluation of: # acute systolic CHF with dyspnea as Echo showing low EF of 20% believed to be related to cocaine\ Alcohol use , post-viral, idiopathic that still need further work up with cardiology as outpatient. HE was treated with IV Lasix with good response as edema and breathing improved and BNP trended down. He was seen by Cardiology who recommended avoid Alcohol and cocaine. He was started on Entresto and Jardiance along with Carvedilol and Spironolactone as he tolerated well. To be discharged on Lasix 40 mg as well with a plan to follow with cardiology in clinic. # Elevated troponin I on presentation. initial troponin I was elevated at 83 with a repeat of 64. likely due to demand-supply mismatch and not ACS # Polysubstance abuse. smokes half a pack of cigarettes a day and snorting cocaine. encouraged smoking cessation and abstaining from cocaine. addiction team evaluated the patient and has outpatient services. NRT placed on discharge. Discharge plan You have new onset heart failure. You will need to quit smoking and avoid alcohol and drugs. Take medications as prescribed Follow with cardiology as outpatient Time Attestation Discharge Coordination Time (in mins): 39 Quality: Safe Use of Opioids Does Pt have an Active Cancer Diagnosis on the Problem List?: No Quality: Stroke Does the patient have a stroke diagnosis?: No Physical Exam Vital Signs: Vital Signs: Last Vital Signs Temp 97.4 F 10/12/24 08:00 Pulse 56 10/12/24 08:00 Resp 20 10/12/24 08:00 BP 105/65 10/12/24 08:00 Pulse Ox 96 10/12/24 08:00 O2 Del Method Room Air 10/12/24 08:00 BMI result Body Mass Index 32.5 Const: Other: Constitutional : Awake, interactive, not in distress Neck : Normal inspection, Supple Cardiovascular : RRR, no JVP, no lower extremity edema Respiratory : good bilateral air entry, nocrackles, Gastrointestinal: soft, lax, Normal bowel sounds, Non tender Skin : Warm, Dry, covered with tattoos Neurological : Alert & oriented x3, No focal deficit DS: Data Data Completed and Pending Labs on day of discharge: Laboratory Results - last 24 hr 10/12/24 06:16 Hold Purple Top SEE NOTE Sodium 139 Potassium 3.7 Chloride 100 Carbon Dioxide 26 Anion Gap 17 BUN 20 H Creatinine 0.99 Estim Creat Clear Calc 140.3 Estimated GFR > 60 Random Glucose 116 H Calcium 9.3 B-Natriuretic Peptide 160 H Preliminary micro results at discharge 10/09/24 17:16 Blood Culture - Preliminary Blood - Venous No growth after 48 hours. 10/09/24 17:16 Blood Culture - Preliminary Blood - Venous No growth after 48 hours. Imaging Chest x-ray: Radiologist's impression: CTA chest IMPRESSION: 1. No evidence of pulmonary artery embolism. 2. Small bilateral pleural effusions, [id number]. Interstitial edema is also present. Suspect congestive heart failure. 3. There is a mild degree of cardiomegaly. This document has been electronically signed by: Becca Mckeon MD on 10/09/2024 19:07:25 Discharge Plan Discharge Anticipated Discharge Date/Time: 10/12/24 12:15 Patient Disposition: Home, Self-Care Discharge Diagnosis: Heart failure Referrals: Physician,None [Primary Care Provider] - 1 Week Discharge Medications: New sacubitril-valsartan [Entresto] 24-26 mg Tablet 1 tab PO BID Qty: 180 0RF Protocol: Hold for SBP< HOLD for SBP < : 90 spironolactone 25 mg Tablet 25 mg PO DAILY Qty: 90 0RF Protocol: Hold for SBP< HOLD for SBP < : 90 Jardiance 10 mg Tablet 10 mg PO DAILY Qty: 90 0RF furosemide 40 mg tablet 40 mg PO DAILY Qty: 90 0RF carvedilol 3.125 mg tablet 3.125 mg PO BID Qty: 180 0RF Rx Instructions: must administer with a meal/food nicotine 14 mg/24 hr patch 24 hour 1 patch transdermal Q24H Qty: 28 2RF Continued multivitamin Tablet 1 tab PO DAILY Discharge Orders: Discharge Order (Routine); Ordered 10/12/24 Ordered By: Gallo Flores Diet: Low salt diet Activity on Discharge: As tolerated Stand Alone Forms: Patient Portal Discharge page Print Language: Thai Care Plan Goals: You have new onset heart failure. You will need to quit smoking and avoid alcohol and drugs. Take medications as prescribed Follow with cardiology as outpatient Health Concerns: HEart failure Plan of Treatment: Carvedilol, Furosemide, Spironolactone, Entresto Cardiology follow up Assessment: as above
--- NOTE | 2024-10-12 13:11 | PM.PNCARD ---
Subjective Subjective Date of Service: 10/12/24 Principal diagnosis: Decompensated congestive heart failure, cardiomyopathy. Interval history: Patient doing well. Blood pressure is low but stable. Has been doing well with much improved BNP after diuresis. Review of Systems Review of Systems Yes all other systems are reviewed and are negative Physical Exam Vital Signs: Last Vital Signs Temp 97.4 F 10/12/24 08:00 Pulse 56 10/12/24 08:00 Resp 20 10/12/24 08:00 BP 105/65 10/12/24 08:00 Pulse Ox 96 10/12/24 08:00 O2 Del Method Room Air 10/12/24 08:00 BMI result Body Mass Index 32.5 Const General: cooperative, comfortable, well developed, alert, awake and in distress mild and respiratory Nutritional Appearance: well nourished and overweight Orientation/consciousness: patient oriented x3 HEENT Head: Yes normocephalic and Yes atraumatic Neck Neck: Yes trachea midline, Yes supple and Yes no JVD Resp Effort & Inspection: normal respiratory effort Auscultation: clear to auscultation bilaterally Cardio Jugular venous distension: no JVD Palpation: abnormal PMI displaced PMI Rate: regular rate Rhythm: regular rhythm Heart sounds: S1 normal heart sound present, S2 normal heart sound present, no click, Gallop heart sound present (S3 gallop) and no murmurs GI Auscultation: normal bowel sounds Skin General skin exam: no rashes or lesions noted and other (Diffuse tattoos) Neuro General: patient oriented x3 and no focal motor deficits Extrem General: No clubbing, No cyanosis and Yes edema Psych Appearance: grossly normal Objective Labs and Meds 10/10/24 06:08 10/12/24 06:16 Lab results: Laboratory Results - last 24 hr 10/12/24 06:16 Hold Purple Top SEE NOTE Sodium 139 Potassium 3.7 Chloride 100 Carbon Dioxide 26 Anion Gap 17 BUN 20 H Creatinine 0.99 Estim Creat Clear Calc 140.3 Estimated GFR > 60 Random Glucose 116 H Calcium 9.3 B-Natriuretic Peptide 160 H Progress Note: A&P Assessment and plan (1) Acute CHF: Status: Acute Assessment and Plan: Acute congestive heart failure related to dilated cardiomyopathy severe LV systolic dysfunction unclear etiology most likely toxic from alcohol and cocaine abuse. Advised to avoid cocaine and alcohol abuse completely. Continue current neurohormonal modulation and add Coreg 3.125 mg b.i.d. to regimen. P.o. Lasix. Heart failure education provided. Follow-up outpatient will be scheduled and will require ischemic workup as an outpatient. Patient can be discharged Time Spent With Patient Time: Total time managing care of this patient today ____ minutes. Progress Note: Quality Stroke Does the patient have a stroke diagnosis?: No Procedures Date of Service Date of Service: 10/12/24
== END 2024-10-12 12:57 | disposition home or self-care (01) | DRG 917 ==
LOC: HO.ED 22:01 → HO.EDOVER 23:33 → HO.IMC 10-10 10:23
PROVIDERS: Physician Assistant; Physician Assistant Medical; Admitting Provider Internal Medicine; Emergency Provider Emergency Medicine; Visit Provider Student in an Organized Health Care Education/Training Program
DX: T40.5X1A Poisoning by cocaine, accidental (unintentional), initial encounter (principal); I50.21 Acute systolic (congestive) heart failure; I42.7 Cardiomyopathy due to drug and external agent; F10.10 Alcohol abuse, uncomplicated; F17.210 Nicotine dependence, cigarettes, uncomplicated; Z71.6 Tobacco abuse counseling; F14.10 Cocaine abuse, uncomplicated; F19.10 Other psychoactive substance abuse, uncomplicated; J45.909 Unspecified asthma, uncomplicated; Z79.899 Other long term (current) drug therapy
CPT/HCPCS: 0241U; 36415; 71046; 71275; 80048; 80053; 80061; 80076; 80307; 83605; 83735; 83880; 84443; 84484; 85025; 85610; 85652; 85730; 86140; 87040; 87633; 93005; 93306; 94640; 99285; J0696; J1940; Q9957; Q9967; S9485

== ENCOUNTER → 2024-10-09 13:47 | Outpatient (BNV) | payer OTHER, SELFPAY | PROVIDERS: Emergency Provider Emergency Medicine; Visit Provider Internal Medicine Cardiovascular Disease | DX: R00.0 Tachycardia, unspecified (principal); I49.1 Atrial premature depolarization | CPT/HCPCS: 93010 ==

== ENCOUNTER → 2024-10-09 16:31 | Outpatient (BNV) | payer OTHER, SELFPAY | PROVIDERS: Emergency Provider Emergency Medicine; Visit Provider Radiology Diagnostic Radiology | DX: J90 Pleural effusion, not elsewhere classified (principal); R91.8 Other nonspecific abnormal finding of lung field; J81.0 Acute pulmonary edema; I51.7 Cardiomegaly | CPT/HCPCS: 71046; 71275 ==

== ENCOUNTER 2024-10-09 23:27 | Outpatient (BNV) | payer OTHER, SELFPAY | END 2024-10-10 07:00 | PROVIDERS: Admitting Provider Internal Medicine; Emergency Provider Emergency Medicine; Visit Provider Internal Medicine Cardiovascular Disease | DX: I50.20 Unspecified systolic (congestive) heart failure (principal); I34.0 Nonrheumatic mitral (valve) insufficiency; I36.1 Nonrheumatic tricuspid (valve) insufficiency | CPT/HCPCS: 93306 ==

== ENCOUNTER → 2024-10-09 23:27 | Outpatient (BNV) | payer OTHER, SELFPAY | PROVIDERS: Admitting Provider Internal Medicine; Emergency Provider Emergency Medicine; Visit Provider Internal Medicine Cardiovascular Disease | DX: I50.9 Heart failure, unspecified (principal) | CPT/HCPCS: 99223 ==

== ENCOUNTER → 2024-10-09 23:27 | Outpatient (BNV) | payer OTHER, SELFPAY | PROVIDERS: Admitting Provider Internal Medicine; Emergency Provider Emergency Medicine; Visit Provider Internal Medicine | DX: I50.21 Acute systolic (congestive) heart failure (principal); I51.7 Cardiomegaly; R79.89 Other specified abnormal findings of blood chemistry; F14.10 Cocaine abuse, uncomplicated; F17.200 Nicotine dependence, unspecified, uncomplicated; R06.00 Dyspnea, unspecified | CPT/HCPCS: 99223; 99232; 99233; 99239 ==

== ENCOUNTER 2024-10-23 14:19 | Outpatient (AMB) | payer OTHER, SELFPAY ==
[2024-10-23 14:21] VITALS: BP 140/68; PULSE 80; BMI 30.6
--- NOTE | 2024-10-23 14:21 | MHC.OFFVIS ---
Vital Signs 10/23/24 14:21 Height 6 ft 2 in Weight 238 lb 1.588 oz BMI 30.6 BP 140/68 H Blood Pressure Location Lt brachial Position Sitting Pulse 80 Pulse Source Pulse Oximeter Intake Visit Reasons: f/up heart failure s/p labs [facility] [place] Allergies No Known Allergies Allergy (Verified 10/09/24 13:48) Medication List - Last Reconciled 10/23/24 by Adriano Kincaid NP carvedilol 3.125 mg PO BID empagliflozin (Jardiance) 10 mg PO DAILY furosemide 40 mg PO DAILY multivitamin 1 tab PO DAILY sacubitril-valsartan 24-26 mg (Entresto) 1 tab See Protocol PO BID spironolactone 25 mg See Protocol PO DAILY HPI Comments Details: This is a 33-year-old male patient who is coming in for a hospital discharge follow-up. Patient with a history of asthma, tobacco use, and cocaine use who was recently admitted to the hospital for acute systolic heart failure after experiencing progressively worsening dyspnea over the past 2 weeks, initially with exertion but later started at rest. Patient also reported chest pressure during that time. Upon admission, his workup revealed cardiomegaly with bilateral pleural effusion on chest CTA, elevated troponin initially 83, repeat was 64, and an elevated BNP. Echo cardiogram showed a low EF of 20% likely related to his substance abuse or possibly post viral in nature. He was treated with IV Lasix, resulting improved symptoms and was discharged on Entresto, Jardiance, spironolactone, and carvedilol. He has tolerated the medications well and reports compliance with it. Patient admits to using cocaine infrequently now. Patient notes improvement in his shortness of breath however still gets intermittent shortness of breath with exertion as well as with rest. Patient is otherwise denying any exertional chest pain, dizziness, fatigue, orthopnea, PND, leg edema, presyncope, or syncope. Patient expresses frustration about not being able to find a PCP as he does not have 1. Patient states he is in the process of looking for 1. [facility] Medical History (Updated 10/23/24 @ 16:28 by Adriano Kincaid NP) Cardiomegaly Cocaine abuse Smoker unmotivated to quit Smoker Asthma Surgical History History of hand surgery Family History Paternal Grandfather Heart attack Father High blood pressure COPD (chronic obstructive pulmonary disease) Mother Heart attack Maternal Grandfather Heart attack Social History Household Members: None Housing: House Do you presently have visiting nurse or other home services: No Alcohol intake: current Patient Tobacco Use Status: Current everyday Tobacco user Tobacco use type: Cigarette Cigarette Packs Per Day: 0.5 Cigarettes Per Day: 10.0 e-Cigarette/Vaping Use: Currently Using Second Hand Smoke Exposure: No Substance Use Type: Crack/Cocaine and Marijuana service: No Review of Systems Const Denies weakness ENT Denies dizziness Card Denies chest pain with activity, Denies syncope, Denies rapid heart rate, Denies pedal edema, Denies edema, Denies leg edema, Denies lightheadedness, Reports palpitations, Reports dyspnea, Denies dyspnea on exertion and Denies orthopnea Resp Denies cough, Reports dyspnea and Denies dyspnea on exertion GI Denies hematochezia and Denies change in stool character Musc Denies abnormal gait, Denies muscle cramps, Denies muscle weakness, Denies numbness, Denies radiating pain into limb and Denies tingling Neuro Denies abnormal gait, Denies dizziness, Denies syncope, Denies numbness, Denies tingling and Denies weakness Endo Reports palpitations Physical Exam Vital Signs: Last Vital Signs Pulse 80 10/23/24 14:21 BP 140/68 H 10/23/24 14:21 BMI result Body Mass Index 30.6 Const General: cooperative, healthy appearing, comfortable and no acute distress Orientation/consciousness: patient oriented x3 HEENT Head: Yes normal to inspection Neck Neck: Yes normal visual inspection, Yes trachea midline and Yes supple Chest Chest palpation & inspection: normal inspection of the chest Resp Effort & Inspection: normal respiratory effort Auscultation: clear to auscultation bilaterally, no crackles, no rales, no rhonchi and no wheezes Cardio Jugular venous distension: no JVD Palpation: normal PMI Rate: regular rate Rhythm: regular rhythm Heart sounds: S1 normal heart sound present, S2 normal heart sound present, no click, Gallop heart sound present S3 gallop, no murmurs and no rubs Peripheral pulses: Peripheral pulses 2+ throughout GI Inspection: Yes normal to inspection Palpation (GI): Soft to palpation Auscultation: normal bowel sounds Skin General skin exam: no rashes or lesions noted Neuro General: patient oriented x3 Extrem General: Yes normal to inspection, No no pedal edema and No calf tenderness Psych Appearance: grossly normal Mental Status: mental status grossly normal Speech and movement: Normal speech and movement present Assessment & Plan Assessment & Plan (1) Heart failure with reduced ejection fraction: Code(s): I50.20 - Unspecified systolic (congestive) heart failure Category: Medical (2) Cardiomegaly: Code(s): I51.7 - Cardiomegaly Category: Medical (3) Hypertension: Code(s): I10 - Essential (primary) hypertension Category: Medical (4) Hospital discharge follow-up: Code(s): Z09 - Encounter for follow-up examination after completed treatment for conditions other than malignant neoplasm Category: Medical Plan 10/10/2024-patient underwent an echo study that showed severely dilated left ventricle with severely LV systolic dysfunction at 15-20% with elevated filling pressures, moderately reduced right ventricular function, moderately dilated left atrium, mild mitral regurgitation, and elevated right atrial pressures. Continue the guideline directed medical therapy with Entresto, spironolactone, Jardiance, and carvedilol. The patient has been tolerating this regimen well and is clinically euvolemic today. We will gradually increase the doses of these medications as tolerated to optimize treatment. Given the patient's elevated blood pressure today, we will increase the carvedilol to 6.25 mg twice daily. Advised patient to continue monitoring blood pressures at home and keep a log of it. We will repeat an echocardiogram to assess for any improvements with ongoing medical therapy. If no significant improvement is noted, we may need to consider evaluating the patient for ACQUISITION SPECIALIST or an ICD implantation. Discussed this in detail with the patient. Strongly advised patient to completely avoid the use of alcohol, cocaine, and other substances. Patient reported using a testosterone 3 times daily and it was advised to discontinue this. Regarding a new PCP for the patient, we will assist in seeking 1. Emphasized the importance of maintaining a heart healthy diet, low-salt diet, fluid restriction, daily weight, regular exercise, weight loss, and aggressive management of vascular risk factors. Patient was also educated on the signs of heart failure and instructed to monitor. Emphasized the importance of adhering to his medication regimen. He will follow-up in 3 months with an updated echo. In the interim, patient will call us with any concerns or change in symptoms. In the case of exertional chest pain not resolved with rest advised to seek ER care. This note was generated using voice recognition software. While every effort has been made to ensure accuracy and proper door serviceman, there may be occasional errors that could affect the content or meaning of the described symptoms. Orders: Orders Basic Metabolic Panel Today Adriano Kincaid NP I50.20 - Unspecified systolic (congestive) heart failure CA echo transthoracic complete 2 Months Adriano Kincaid NP I50.20 - Unspecified systolic (congestive) heart failure Medications: New blood pressure monitor As directed 1 ea 0RF Adriano Kincaid NP Changed From empagliflozin (Jardiance) 10 mg PO DAILY 90 tabs 0RF To empagliflozin (Jardiance) 10 mg PO DAILY Gallo Flores MD From sacubitril-valsartan 24-26 mg (Entresto) 1 tab See Protocol PO BID 180 tabs 0RF To sacubitril-valsartan 24-26 mg (Entresto) 1 tab See Protocol PO BID Gallo Flores MD From carvedilol must administer with a meal/food 3.125 mg PO BID 180 tabs 0RF To carvedilol must administer with a meal/food 6.25 mg (2 x 3.125 mg) PO BID 180 tabs 0RF Adriano Kincaid NP Coding Level of Care Code Est Pt Level 4 (49615) Complex EM visit Add On G2211 Diagnoses Heart failure with reduced ejection fraction I50.20 Cardiomegaly I51.7 Hypertension I10 Hospital discharge follow-up Z09 Time Spent (min) 35 Comment Time spent in reviewing the chart, test results, assessment, counseling and documentation.
--- OUTSIDE RECORDS SUMMARY | 2024-10-23 16:57 | XMS_ITS | Clinical Summary ---
Author Organization [employer] Address [address] [place] [address] [address] [place] [address] Care Team Providers Care Family Nurse Practitioner Name Role Phone Unavailable Primary Care Provider [...] HEPATITIS C ANTIBODY NON-REACT ASTER NON-REACT ASTER [facility] INDEX 0.03 <1.00 [facility] Comment: ?? HCV antibody was non-reactive. There is no laboratory ?? evidence of HCV infection. ?? In most cases, no further action is required. However, if recent HCV exposure is suspected, a test for HCV RNA (test code 73107) is suggested. ?? For additional information please refer to http://Wink/faq/IWL14e6 (This link is being provided for informational/ [...] a test for HCV RNA (test code 73638) is suggested. ?? For additional information please refer to http://Wink/faProtoStar/UFU89x3 (This link is being provided for informational/ [...] a test for HCV RNA (test code 03653) is suggested. ?? For additional information please refer to http://Wink/faq/YUM85a4 (This link is being provided for informational/ [...] a test for HCV RNA (test code 99952) is suggested. ?? For additional information please refer to http://[facility]/faq/BZJ41r6 (This link is being provided for informational/ [...] a test for HCV RNA (test code 19659) is suggested. ?? For additional information please refer to http://[facility]/faq/QLQ76r8 (This link is being provided for informational/ educational purposes only.) ?? 03/03/2020 11:2 2 AM EDT Adalberto Wright MD HISTORICAL/NON ORDERABLE LABS Final Result [facility] [address] * HIV 1/2 ANTIGEN/ANTIBODY,FOURTH GENERATION W/RFL [...] ? For additional information please refer to http://[facility]/faq/PST129 (This link is being provided for informational/ educational purposes only.) ? The performance of this assay has not been clinically validated in patients less than 2 years old. ?? HIV-1/2 ANTIGEN AND ANTIBODIES, 4TH GENERATION W/ REFLEX NON-REACT ASTER NON-REACT ASTER [facility] Comment: HIV-1 antigen and HIV-1/HIV-2 [...] ? For additional information please refer to http://[facility]/faq/SHJ075 (This link is being provided for informational/ [...] ? For additional information please refer to http://Wink/faq/KUH446 (This link is being provided for informational/ [...] ? For additional information please refer to http://Wink/faq/NDI102 (This link is being provided for informational/ educational purposes only.) ? The performance of this assay has not been clinically validated in patients less than 2 years old. ?? 03/03/2020 11:2 2 AM EDT us Adalberto Wright MD LAB BLOOD ORDERABLES Final Res ult [facility] [address] from Last 3 Months or Most Recently Relevant to Health Maintenance Insurance * Guarantor: Trung Le Account Type Relation to Patient Date of Phone Billing Address Personal/Family Self [address] [place] [phone] [place] [address] - [employer] * Guarantor: Trung Le Account Type Relation to Patient Date of Phone Billing Address Personal/Family Self [address] [place] [phone] * Guarantor: Trung Le Account Type Relation to Patient Date of Phone Billing Address Personal/Family Self [address] [place] [phone]
== END 2024-10-23 14:57 | disposition home or self-care (01) ==
LOC: HO.HCS 14:20
DX: I50.20 Unspecified systolic (congestive) heart failure (principal); I51.7 Cardiomegaly; I10 Essential (primary) hypertension; Z09 Encounter for follow-up examination after completed treatment for conditions other than malignant neoplasm
CPT/HCPCS: 99214; G2211

== ENCOUNTER → 2024-10-23 14:19 | Outpatient (BNVA) | payer OTHER, SELFPAY | DX: Z09 Encounter for follow-up examination after completed treatment for conditions other than malignant neoplasm (principal); I51.7 Cardiomegaly; I11.0 Hypertensive heart disease with heart failure; I50.20 Unspecified systolic (congestive) heart failure | CPT/HCPCS: 99212 ==

== ENCOUNTER → 2024-12-23 12:47 | Outpatient (REF) | payer OTHER, SELFPAY ==
--- NOTE | 2024-12-23 12:53 | CA_ITS ---
Transthoracic Echocardiogram Patient (Last, First, Middle): Trung Le R Gender: Male Date of : 1990 Age: 34 Procedure Date: 12/23/2024 Procedure Type: Transthoracic Echocardiogram Location: OP Height: 187.96 cm Weight: 115.67 kg BSA: 2.41 m2 Heart Rate: bpm BP: 116 / 56 mmHg Cook Tortilla: ROMY Referring MD: Adriano Kincaid NP Symptoms: I50.20 - Unspecified systolic (congestive) heart failure Study Quality: Fair ECG Rhythm: Atrial Fibrillation Conclusions: - Severely increased left ventricular cavity size. The left ventricular systolic function is severely decreased. The visually estimated ejection fraction is between 10-15%. Findings Left Ventricle Severely increased left ventricular cavity size. There is mildly increased left ventricular wall thickness. The left ventricular systolic function is severely decreased. The visually estimated ejection fraction is between 10 15%. There is severe global hypokinesis. Right Ventricle Normal right ventricular cavity size. There is moderately decreased right ventricular systolic function. Venous The inferior vena cava is normal in size and collapses greater than 50% with inspiration. Prior Study Comparison No significant change compared to prior study dated: 10/10/2024. Measurements 2D Linear Measurements IVSd: 1.08 0.6-0.9/0.6-1.0 cm LVIDd: 7.34 3.9-5.3/4.2-5.9 cm LVIDd Index: 3.05 2.4-3.2/2.2-3.1 cm/m2 LVIDs: 7.00 2.0-3.6 cm LVPWd: 1.09 0.7-1.1 cm LV Mass: 483.22 67-162/88-224 g LV Mass Index: 200.51 43-95/49-115 g/m2 LVOT Diam: 2.60 3.0+(-)1.3 cm 2D Systolic Function EF 4C: 20.90 >55% EF 2C: 19.50 >55% LVOT LVOT Pk Nirav: 0.72 LVOT Mn Nirav: 0.47 LVOT VTI: 0.12 LVOT Pk Grad: 2.00 LVOT Mn Grad: 1.00 LVOT Diam: 2.60 LVOT Area: 5.31 Updated in Other Vendor System with Status of Final Morgan Tavares MD electronically signed on 12/23/2024 3:19:11 PM with status of Final
--- OUTSIDE RECORDS SUMMARY | 2024-12-23 13:51 | XMS_ITS | Clinical Summary ---
Author Organization [employer] Address [address] [place] [address] [address] [place] [address] Care Team Providers Care Reactor Technician Name Role Phone Unavailable Primary Care Provider [...] 1990 Lipid Panel 1990 SDOH Screening 1990 Disability Screening 1988 Alcohol/Substance Use Screening 2000 Tobacco Screening 2000 Family Planning (PISQ) 12/13/2003 DTaP/Tdap/Td Vaccines (1 - Tdap) 12/13/2007 Hepatitis B Vaccines (1 of 3 - 19+ 3-dose series) 12/13/2007 COVID-19 Vaccine (1 - 2023-2 5 season) 2024 Influenza Vaccine (#1) 2024 [...] patient's age to complete this topic Meningococcal B Vaccine Aged Out No l onger eligible based on patient's age to complete [...] Procedure Name Priority Date/Time Associated Diagnosis Comments ZZZ HISTORICAL HEPATITIS C AB W/REFL TO HCV RNA, QN, PCR Routine 03/03/2020 11:22 AM EDT HIV 1/2 ANTIGEN/ANTIBODY, FOURTH GENERATION W/RFL Routine 03/03/2020 11:22 AM EDT from Last 3 Months or Most Recently Relevant to Health Maintenance Results * HEPATITIS C AB W/REFL TO HCV RNA, QN, PCR (03/03/2020 11:22 AM EDT) HEPATITIS C ANTIBODY NON-REACT ASTER NON-REACT ASTER [facility] INDEX 0.03 <1.00 [facility] Comment: ?? HCV antibody was non-reactive. There is no laboratory ?? evidence of HCV infection. ?? In most cases, no further action is required. However, if recent HCV exposure is suspected, a test for HCV RNA (test code 63579) is suggested. ?? For additional information please refer to http://[employer]oc[employer]/faLetsgofordinner/CXF56j3 (This link is being provided for informational/ educational purposes only.) ?? HEPATITIS C ANTIBODY NON-REACT ASTER NON-REACT ASTER [facility] INDEX 0.03 <1.00 [facility] Comment: ?? HCV antibody was non-reactive. There is no laboratory ?? evidence of HCV infection. ?? In most cases, no further action is required. However, if recent HCV exposure is suspected, a test for HCV RNA (test code 99133) is suggested. ?? For additional information please refer to http://[employer]/faq/BUS07n9 (This link is being provided for informational/ educational purposes only.) ?? HEPATITIS C ANTIBODY NON-REACT ASTER NON-REACT ASTER [facility] INDEX 0.03 <1.00 [facility] Comment: ?? HCV antibody was non-reactive. There is no laboratory ?? evidence of HCV infection. ?? In most cases, no further action is required. However, if recent HCV exposure is suspected, a test for HCV RNA (test code 33557) is suggested. ?? For additional information please refer to http://[employer]/faq/LUD25z9 (This link is being provided for informational/ educational purposes only.) ?? HEPATITIS C ANTIBODY NON-REACT ASTER NON-REACT ASTER [facility] INDEX 0.03 <1.00 [facility] Comment: ?? HCV antibody was non-reactive. There is no laboratory ?? evidence of HCV infection. ?? In most cases, no further action is required. However, if recent HCV exposure is suspected, a test for HCV RNA (test code 46286) is suggested. ?? For additional information please refer to http://[employer]/faq/FPW28n4 (This link is being provided for informational/ educational purposes only.) ?? HEPATITIS C ANTIBODY NON-REACT ASTER NON-REACT ASTER [facility] INDEX 0.03 <1.00 [facility] Comment: ?? HCV antibody was non-reactive. There is no laboratory ?? evidence of HCV infection. ?? In most cases, no further action is required. However, if recent HCV exposure is suspected, a test for HCV RNA (test code 00789) is suggested. ?? For additional information please refer to http://[employer].Clay.[employer]/faq/WGG57f8 (This link is being provided for informational/ educational purposes only.) ?? 03/03/2020 11:2 2 AM EDT us Adalberto Wright MD HISTORICAL/NON ORDERABLE LABS Final Result [facility] [address] * HIV 1/2 ANTIGEN/ANTIBODY,FOURTH GENERATION W/RFL [...] ? For additional information please refer to http://Bree[employer].Clay.io/faq/ASX418 (This link is being provided for informational/ [...] ? For additional information please refer to http://Bree[employer].Clay.io/faq/UEK279 (This link is being provided for informational/ educational purposes only.) ? The performance of this assay has not been clinically validated in patients less than 2 years old. ?? HIV-1/2 ANTIGEN AND ANTIBODIES, 4TH GENERATION W/ REFLEX NON-REACT ASTER NON-REACT ASTER [facility] Comment: HIV-1 antigen and HIV-1/HIV-2 [...] ? For additional information please refer to http://Breezy.Clay.io/faq/FPK723 (This link is being provided for informational/ educational purposes only.) ? The performance of this assay has not been clinically validated in patients less than 2 years old. ?? HIV-1/2 ANTIGEN AND ANTIBODIES, 4TH GENERATION W/ REFLEX NON-REACT ASTER NON-REACT ASTER [facility] Comment: HIV-1 antigen and HIV-1/HIV-2 [...] ? For additional information please refer to http://education.[employer].OVIA/faq/HKF045 (This link is being provided for informational/ educational purposes only.) ? The performance of this assay has not been clinically validated in patients less than 2 years old. ?? 03/03/2020 11:2 2 AM EDT us Adalberto Wright MD LAB BLOOD ORDERABLES Final Res ult [facility] [address] from Last 3 Months or Most Recently Relevant to Health Maintenance Insurance [facility] < [address] [id number]
== END ==
LOC: HO.CARD 12:47
DX: I50.20 Unspecified systolic (congestive) heart failure (principal)
CPT/HCPCS: 93308

== ENCOUNTER → 2024-12-23 12:53 | Outpatient (BNV) | payer OTHER, SELFPAY | PROVIDERS: Visit Provider Internal Medicine | DX: I50.20 Unspecified systolic (congestive) heart failure (principal) | CPT/HCPCS: 93308 ==

== ENCOUNTER 2025-01-22 14:30 | Outpatient (AMB) | payer OTHER, SELFPAY ==
[2025-01-22 14:40] VITALS: BP 110/70; PULSE 103; BMI 47.7
--- NOTE | 2025-01-22 14:40 | A.OFFVIS_ITS ---
Vital Signs 01/22/25 14:40 Height 6 ft 2 in Weight 371 lb 11.19 oz BMI 47.7 BP 110/70 Blood Pressure Location Rt brachial Position Sitting Pulse 103 H Pulse Source Pulse Oximeter Intake Visit Reasons: 3m follow up Intake Note: 3 mth-echo Allocation Analyst Required: No Accompanied by: Self / Same As Patient Allergies No Known Allergies Allergy (Verified 10/09/24 13:48) Medication List - Last Reconciled 01/22/25 by Adriano Kincaid NP blood pressure monitor As directed carvedilol 6.25 mg (2 x 3.125 mg) PO BID empagliflozin (Jardiance) 10 mg PO DAILY furosemide 40 mg PO DAILY multivitamin 1 tab PO DAILY sacubitril-valsartan 24-26 mg (Entresto) 1 tab See Protocol PO BID spironolactone 25 mg See Protocol PO DAILY HPI Comments Details: This is a 34-year-old male patient coming in for a follow-up visit. Patient with a history of asthma, tobacco use, cocaine use, steroid use, was recently diagnosed with cardiomyopathy with ejection fraction of 20%. Patient was initiated on neurohormonal directed medical therapy and recently underwent repeat echocardiogram which showed no improvement in the LV function. Patient states that he is continuing to use cocaine in the weekend otherwise denies any use of alcohol, tobacco, and steroids. Patient admits that once in a blue salvador he forgets to take his medication otherwise is compliant with it. Patient is otherwise denying any cardiac symptoms of exertional chest pain, shortness breath, palpitations dizziness, orthopnea, PND, leg edema, presyncope, or syncope. Patient does report that he feels fatigued otherwise is doing well. Patient reports he has frustration about how he still has not been able to seek a PCP. [facility] Medical History Cardiomegaly Cocaine abuse Smoker unmotivated to quit Smoker Asthma Surgical History History of hand surgery Family History Paternal Grandfather Heart attack Father High blood pressure COPD (chronic obstructive pulmonary disease) Mother Heart attack Maternal Grandfather Heart attack Social History Household Members: None Housing: House Do you presently have visiting nurse or other home services: No Alcohol intake: current Patient Tobacco Use Status: Current everyday Tobacco user Tobacco use type: Cigarette Cigarette Packs Per Day: 0.5 Cigarettes Per Day: 10.0 e-Cigarette/Vaping Use: Currently Using Second Hand Smoke Exposure: No Substance Use Type: Crack/Cocaine and Marijuana service: No Review of Systems Const Denies chills, Denies fatigue, Denies fever(s), Denies frequent falls, Denies weakness, Denies weight gain and Denies weight loss ENT Denies dizziness Card Reports chest pain, Reports chest pain at rest, Reports chest pain with activity, Denies leg edema, Denies lightheadedness, Reports palpitations, Reports dyspnea, Reports dyspnea on exertion and Reports orthopnea Resp Denies cough, Reports dyspnea and Reports dyspnea on exertion GI Denies hematochezia Musc Denies abnormal gait, Denies muscle weakness, Denies numbness, Denies radiating pain into limb and Denies tingling Neuro Denies abnormal gait, Denies dizziness, Denies frequent falls, Denies numbness, Denies tingling and Denies weakness Endo Denies fatigue and Reports palpitations Physical Exam Vital Signs: Last Vital Signs Pulse 103 H 01/22/25 14:40 BP 110/70 01/22/25 14:40 BMI result Body Mass Index 47.7 Const General: cooperative, healthy appearing, comfortable and no acute distress Orientation/consciousness: patient oriented x3 HEENT Head: Yes normal to inspection Neck Neck: Yes normal visual inspection, Yes trachea midline and Yes supple Chest Chest palpation & inspection: normal inspection of the chest Resp Effort & Inspection: normal respiratory effort Auscultation: clear to auscultation bilaterally, no crackles, no rales, no rhonchi and no wheezes Cardio Jugular venous distension: no JVD Palpation: normal PMI Rate: tachycardic Rhythm: regular rhythm Heart sounds: S1 normal heart sound present, S2 normal heart sound present, no click, Gallop heart sound present S3 gallop, no murmurs and no rubs Peripheral pulses: Peripheral pulses 2+ throughout GI Inspection: Yes normal to inspection Palpation (GI): Soft to palpation Auscultation: normal bowel sounds Skin General skin exam: no rashes or lesions noted Neuro General: patient oriented x3 Extrem General: Yes normal to inspection, No no pedal edema and No calf tenderness Psych Appearance: grossly normal Mental Status: mental status grossly normal Speech and movement: Normal speech and movement present Office Procedures EKG Details: EKG today shows sinus tachycardia with PACs, rate 103 beats per minute, LVH, T- wave inversions noted in inferior leads as well as in V5 and V6, [place], [place] [id number], Complete Assessment & Plan Assessment & Plan (1) Heart failure with reduced ejection fraction: Code(s): I50.20 - Unspecified systolic (congestive) heart failure Category: Medical Plan: 10/10/2024-patient underwent an echo study that showed severely dilated left ventricle with severely LV systolic dysfunction at 15-20% with elevated filling pressures, moderately reduced right ventricular function, moderately dilated left atrium, mild mitral regurgitation, and elevated right atrial pressures. 12/2024-repeat echo showed severely increased LV cavity size, severely decreased LV systolic function with an ejection fraction between 10-15%. Given above finding, we will plan for cardiac catheterization in the near future to assess for coronary artery disease. The procedure along with its indications, risks, and potential benefits was thoroughly discussed with the patient in his partner. The patient was informed about the potential need for stent placement in case of significant coronary artery disease. The patient expresses understanding and agrees to proceed with the planned cardiac catheterization. We will also slowly optimize his medical therapy and up titrate on Entresto and carvedilol. Continue spironolactone, Lasix, and Jardiance. P atient states he has been tolerating the medications well and BP has been stable at home. Patient will return in 2 weeks with the nurse to check blood pressures. Advised monitoring blood pressures at home and to keep a log of it to bring to the nurse visit. Discussed in detail signs and symptoms to look for with heart failure. Clinically stable and euvolemic. (2) Cardiomegaly: Code(s): I51.7 - Cardiomegaly Category: Medical Plan: As above. (3) Hypertension: Code(s): I10 - Essential (primary) hypertension Category: Medical Plan: Blood pressure today is well-controlled. Provided patient with the [facility] group information who is currently accepting new patients. Patient will reach out to them to establish care. Emphasized on the need to completely avoid the use of cocaine, alcohol, and steroids. Advised heart healthy diet, low-salt diet, med compliance, and m anagement of vascular risk factors. We will follow up with the patient following cardiac catheterization. In the interim, patient will call the office with any concerns or change in symptoms. This note was generated using voice recognition software. While every effort has been made to ensure accuracy and proper sql consultant, there may be occasional errors that could affect the content or meaning of the described symptoms. Orders: Orders Basic Metabolic Panel Today I51.7 - Cardiomegaly Complete Blood Count no Diff Today I51.7 - Cardiomegaly Cardiac Cath LT Diagnostic Today I42.9 - Cardiomyopathy, unspecified AMB EKG-In Office Today I51.7 - Cardiomegaly Prothrombin Time INR Today I51.7 - Cardiomegaly Medications: New carvedilol must administer with a meal/food 12.5 mg PO BID 90 tabs 3RF sacubitril-valsartan 49-51 mg 1 tab PO BID 90 tabs 3RF Discontinued carvedilol must administer with a meal/food Discontinued Reason: Doctor's Order 6.25 mg (2 x 3.125 mg) PO BID 180 tabs 3RF sacubitril-valsartan 24-26 mg (Entresto) Discontinued Reason: Doctor's Order 1 tab See Protocol PO BID 180 tabs 3RF Coding Level of Care Code Est Pt Level 4 (90261) Complex EM visit Add On G2211 Diagnoses Heart failure with reduced ejection fraction I50.20 Cardiomegaly I51.7 Hypertension I10 CPT Codes EKG - CPT: 29567-[id number], Complete ([id number]) Time Spent (min) 35 Comment Time spent in reviewing the chart, test results, assessment, counseling and documentation.
--- OUTSIDE RECORDS SUMMARY | 2025-01-22 15:46 | XMS_ITS | Clinical Summary ---
Author Organization [employer] Address [address] [place] [address] [address] [place] [address] Care Team Providers Care Offset Printer Name Role Phone Unavailable Primary Care Provider [...] 93 06/22/2023 2:19 PM EST Temperature 36.6 C (97.8 F) 06/22/2023 2:19 PM EST Respiratory Rate 20 06/22/2023 2:19 PM EST [...] - 19+ 3-dose series) 12/13/2007 COVID-19 Vaccine ( - 2023-2 5 season) 2024 Influenza Vaccine (Season Ended) 2025 Zoster Vaccines (1 of 2) 2038 RSV [...] Years) and At-Risk Patients (6 to 49) Years Aged Out No longer eligi ble based [...] HEPATITIS C ANTIBODY NON-REACT ASTER NON-REACT ASTER [facility] INDEX 0.03 <1.00 [facility] Comment: HCV antibody was non-reactive. There is no laboratory evidence of HCV infection. In most cases, no further action is required. However, if recent HCV exposure is suspected, a test for HCV RNA (test code 50733) is suggested. For additional information please refer to [email or web address] Partners/faq/CTB48u7 (This link is being provided for informational/ educational purposes only.) HEPATITIS C ANTIBODY NON-REACT ASTER NON-REACT ASTER [facility] INDEX 0.03 <1.00 [facility] Comment: HCV antibody was non-reactive. There is no laboratory evidence of HCV infection. In most cases, no further action is required. However, if recent HCV exposure is suspected, a test for HCV RNA (test code 35144) is suggested. For additional information please refer to http://MD On-Line/faq/CQL87n7 (This link is being provided for informational/ educational purposes only.) HEPATITIS C ANTIBODY NON-REACT ASTER NON-REACT ASTER [facility] INDEX 0.03 <1.00 [facility] Comment: HCV antibody was non-reactive. There is no laboratory evidence of HCV infection. In most cases, no further action is required. However, if recent HCV exposure is suspected, a test for HCV RNA (test code 40428) is suggested. For additional information please refer to http://MD On-Line/faq/UYQ85a8 (This link is being provided for informational/ educational purposes only.) HEPATITIS C ANTIBODY NON-REACT ASTER NON-REACT ASTER [facility] INDEX 0.03 <1.00 [facility] Comment: HCV antibody was non-reactive. There is no laboratory evidence of HCV infection. In most cases, no further action is required. However, if recent HCV exposure is suspected, a test for HCV RNA (test code 71683) is suggested. For additional information please refer to http://[email or web address]/faq/ZSS50r9 (This link is being provided for informational/ educational purposes only.) HEPATITIS C ANTIBODY NON-REACT ASTER NON-REACT ASTER [facility] INDEX 0.03 <1.00 [facility] Comment: HCV antibody was non-reactive. There is no laboratory evidence of HCV infection. In most cases, no further action is required. However, if recent HCV exposure is suspected, a test for HCV RNA (test code 15756) is suggested. For additional information please refer to http://[email or web address]/faq/RAS25n2 (This link is being provided for informational/ educational purposes only.) 03/03/2020 11:2 2 AM EDT Adalberto Wright MD HISTORICAL/NON ORDERABLE LABS Final Result [facility] [address] [place] [address], * HIV 1/2 ANTIGEN/ANTIBODY,FOURTH GENERATION W/RFL (03/03/2020 11:22 AM EDT) HIV-1/2 ANTIGEN AND ANTIBODIES, 4TH GENERATION W/ REFLEX NON-REACT ASTER NON-REACT ASTER [facility] Comment: HIV-1 antigen and HIV-1/HIV-2 antibodies were not detected. There is no laboratory evidence of HIV infection. PLEASE NOTE: This information has been disclosed to you from records whose confidentiality may be protected by state law. If your state requires such protection, then the state law prohibits you from making any further disclosure of the information without the specific written consent of the person to whom it pertains, or as otherwise permitted by law. A general authorization for the release of medical or other information is NOT sufficient for this purpose. For additional information please refer to http://Energate.TerraPower.Meridian-IQ/faq/OAM104 (This link is being provided for informational/ educational purposes only.) The performance of this assay has not been clinically validated in patients less than 2 years old. HIV-1/2 ANTIGEN AND ANTIBODIES, 4TH GENERATION W/ REFLEX NON-REACT ASTER NON-REACT ASTER [facility] Comment: HIV-1 antigen and HIV-1/HIV-2 antibodies were not detected. There is no laboratory evidence of HIV infection. PLEASE NOTE: This information has been disclosed to you from records whose confidentiality may be protected by state law. If your state requires such protection, then the state law prohibits you from making any further disclosure of the information without the specific written consent of the person to whom it pertains, or as otherwise permitted by law. A general authorization for the release of medical or other information is NOT sufficient for this purpose. For additional information please refer to http://[email or web address]/faq/AYG859 (This link is being provided for informational/ educational purposes only.) The performance of this assay has not been clinically validated in patients less than 2 years old. HIV-1/2 ANTIGEN AND ANTIBODIES, 4TH GENERATION W/ REFLEX NON-REACT ASTER NON-REACT ASTER [facility] Comment: HIV-1 antigen and HIV-1/HIV-2 antibodies were not detected. There is no laboratory evidence of HIV infection. PLEASE NOTE: This information has been disclosed to you from records whose confidentiality may be protected by state law. If your state requires such protection, then the state law prohibits you from making any further disclosure of the information without the specific written consent of the person to whom it pertains, or as otherwise permitted by law. A general authorization for the release of medical or other information is NOT sufficient for this purpose. For additional information please refer to http://MD On-Line/faq/RRX899 (This link is being provided for informational/ educational purposes only.) The performance of this assay has not been clinically validated in patients less than 2 years old. HIV-1/2 ANTIGEN AND ANTIBODIES, 4TH GENERATION W/ REFLEX NON-REACT ASTER NON-REACT ASTER [facility] Comment: HIV-1 antigen and HIV-1/HIV-2 antibodies were not detected. There is no laboratory evidence of HIV infection. PLEASE NOTE: This information has been disclosed to you from records whose confidentiality may be protected by state law. If your state requires such protection, then the state law prohibits you from making any further disclosure of the information without the specific written consent of the person to whom it pertains, or as otherwise permitted by law. A general authorization for the release of medical or other information is NOT sufficient for this purpose. For additional information please refer to http://Energate.TerraPower.Meridian-IQ/faq/CUV025 (This link is being provided for informational/ educational purposes only.) The performance of this assay has not been clinically validated in patients less than 2 years old. 03/03/2020 11:2 2 AM EDT Adalberto Wright MD LAB BLOOD ORDERABLES Final Res ult Performing Organization Address City/State/[facility] Co de Phone Number [facility] [address] from Last 3 Months or Most Recently Relevant to Health Maintenance Insurance [facility] ONE CARE < 65 [address] [place] [phone]
== END 2025-01-22 15:20 | disposition home or self-care (01) ==
DX: I50.20 Unspecified systolic (congestive) heart failure (principal); I51.7 Cardiomegaly; I10 Essential (primary) hypertension
CPT/HCPCS: 93010; 99214; G2211

== ENCOUNTER → 2025-01-22 14:30 | Outpatient (BNVA) | payer OTHER, SELFPAY | DX: I50.20 Unspecified systolic (congestive) heart failure (principal); I51.7 Cardiomegaly; I10 Essential (primary) hypertension | CPT/HCPCS: 93005; 99212 ==

== ENCOUNTER 2025-02-27 11:03 | Outpatient (REF) | payer OTHER, SELFPAY ==
--- OUTSIDE RECORDS SUMMARY | 2025-02-27 11:14 | XMS_ITS | Clinical Summary ---
Author Organization [employer] Address [address] [place] [address] [address] [place] [address] Care Team Providers Care Physical Education Aide Name Role Phone Unavailable Primary Care Provider [...] Tobacco Screening 2000 Family Planning (PISQ) 12/13/2003 HPV Vaccines (1 - 3-dose series) 12/13/2003 DTaP/Tdap/Td Vaccines (1 - Tdap) 12/13/2007 Hepatitis B Vaccines (1 of 3 - 19+ 3-dose series) 12/13/2007 COVID-19 Vaccine (1 - 2023-2 5 season) 2024 Influenza Vaccine (#1) 2025 Zoster Vaccines (1 of 2) 2038 [...] HEPATITIS C ANTIBODY NON-REACT ASTER NON-REACT ASTER [facility] INDEX 0.03 <1.00 [facility] Comment: HCV antibody was non-reactive. There is no laboratory evidence of HCV infection. In most cases, no further action is required. However, if recent HCV exposure is suspected, a test for HCV RNA (test code 12025) is suggested. For additional information please refer to http://Missy's Candy.Mapado/faq/TXL56k6 (This link is being provided for informational/ educational purposes only.) HEPATITIS C ANTIBODY NON-REACT ASTER NON-REACT ASTER [facility] INDEX 0.03 <1.00 [facility] Comment: HCV antibody was non-reactive. There is no laboratory evidence of HCV infection. In most cases, no further action is required. However, if recent HCV exposure is suspected, a test for HCV RNA (test code 70229) is suggested. For additional information please refer to http://Missy's Candy.Mapado/faq/FYR56t4 (This link is being provided for informational/ educational purposes only.) HEPATITIS C ANTIBODY NON-REACT ASTER NON-REACT ASTER [facility] INDEX 0.03 <1.00 [facility] Comment: HCV antibody was non-reactive. There is no laboratory evidence of HCV infection. In most cases, no further action is required. However, if recent HCV exposure is suspected, a test for HCV RNA (test code 78727) is suggested. For additional information please refer to http://Crowdonomic Media/faq/QYB46a5 (This link is being provided for informational/ educational purposes only.) HEPATITIS C ANTIBODY NON-REACT ASTER NON-REACT ASTER [facility] INDEX 0.03 <1.00 [facility] Comment: HCV antibody was non-reactive. There is no laboratory evidence of HCV infection. In most cases, no further action is required. However, if recent HCV exposure is suspected, a test for HCV RNA (test code 87651) is suggested. For additional information please refer to http://Missy's Candy.Mapado/faq/YLN38p7 (This link is being provided for informational/ educational purposes only.) HEPATITIS C ANTIBODY NON-REACT ASTER NON-REACT ASTER [facility] INDEX 0.03 <1.00 [facility] Comment: HCV antibody was non-reactive. There is no laboratory evidence of HCV infection. In most cases, no further action is required. However, if recent HCV exposure is suspected, a test for HCV RNA (test code 93032) is suggested. For additional information please refer to http://Missy's Candy.Mapado/faq/XMY75a3 (This link is being provided for informational/ educational purposes only.) 03/03/2020 11:2 2 AM EDT Adalberto Wright MD HISTORICAL/NON ORDERABLE LABS Final Result [facility] [address] * HIV 1/2 ANTIGEN/ANTIBODY,FOURTH GENERATION W/RFL (03/03/2020 11:22 AM EDT) HIV-1/2 ANTIGEN AND ANTIBODIES, 4TH GENERATION W/ REFLEX NON-REACT ASTER NON-REACT ASTER [facility] Comment: HIV-1 antigen and HIV-1/HIV-2 [...] purpose. For additional information please refer to http://Missy's Candy.Mapado/faq/RZB247 (This link is being provided for informational/ educational purposes only.) The performance of this assay has not been clinically validated in patients less than 2 years old. HIV-1/2 ANTIGEN AND ANTIBODIES, 4TH GENERATION W/ REFLEX NON-REACT ASTER NON-REACT ASTER [facility] Comment: HIV-1 antigen and HIV-1/HIV-2 [...] purpose. For additional information please refer to http://Missy's Candy.Mapado/faq/GAN428 (This link is being provided for informational/ [...] purpose. For additional information please refer to http://Crowdonomic Media/faq/FCC598 (This link is being provided for informational/ [...] purpose. For additional information please refer to http://Missy's Candy.Mapado/faq/OVI561 (This link is being provided for informational/ educational purposes only.) The performance of this assay has not been clinically validated in patients less than 2 years old. 03/03/2020 11:2 2 AM EDT us Adalberto Wright MD LAB BLOOD ORDERABLES Final Res ult [facility] [address] [place] [address], from Last 3 Months or Most Recently Relevant to Health Maintenance Insurance [facility] ONE CARE < 65 [place] [phone]
[2025-02-27 11:57] LABS: Hematocrit 47.5 % (42.0-52.0); Hemoglobin 16.7 g/dl (14.0-18.0); Mean Corpuscular HGB Conc 35.2 g/dl (31.0-36.0); Mean Corpuscular Hemoglobin 32.2 pg (27.0-33.0); Mean Corpuscular Volume 91.7 fL (80.0-98.0); NRBC Abs Auto 0.000 X10*3/uL (0.0-0.012); NRBC Pct Auto 0.0 /100WBC (0.0-0.2); Platelet Count 191 X10*3/uL (160-400); Red Blood Count 5.18 X10*6/uL (4.60-5.80); White Blood Count 10.5 X10*3/uL (4.8-10.8)
[2025-02-27 12:01] LABS: INTERNATIONAL NORM RATIO 0.9 (0.9-1.1); Prothrombin Time 10.3 SEC (10.9-12.4)
[2025-02-27 12:24] LABS: Anion Gap 13 (12-20); Blood Urea Nitrogen 13 mg/dL (9-16); Calcium 8.9 mg/dL (8.4-10.2); Carbon Dioxide 23 mmol/L (22-29); Chloride 109 mmol/L (96-108); Estimated Glomerular Filt Rate > 60; Potassium 4.1 mmol/L (3.3-5.1); Sodium 141 mmol/L (135-145)
== END 2025-02-27 11:04 | disposition home or self-care (01) ==
LOC: HO.LAB 11:03
DX: I51.7 Cardiomegaly (principal)
CPT/HCPCS: 36415; 80048; 85027; 85610

== ENCOUNTER → 2025-03-03 23:59 | Outpatient (BNV) | payer OTHER, SELFPAY | PROVIDERS: Visit Provider Internal Medicine Cardiovascular Disease | DX: I20.89 Other forms of angina pectoris (principal); I50.20 Unspecified systolic (congestive) heart failure | CPT/HCPCS: 93458; 99152 ==

== ENCOUNTER 2025-03-19 14:39 | Outpatient (AMB) | payer OTHER, SELFPAY ==
[2025-03-19 14:49] VITALS: BP 112/74; PULSE 113; BMI 32.0
--- NOTE | 2025-03-19 14:49 | A.OFFVIS_ITS ---
Vital Signs 03/19/25 14:49 Height 6 ft 2 in Weight 249 lb 9.012 oz BMI 32.0 BP 112/74 Blood Pressure Location Lt brachial Position Sitting Pulse 113 H Pulse Source Monitor Intake Visit Reasons: 2 wk follow up s/p cath Service Station Operator Required: No Accompanied by: Self / Same As Patient Allergies No Known Allergies Allergy (Verified 03/19/25 14:53) Medication List - Last Reconciled 03/19/25 by Adriano Kincaid NP blood pressure monitor As directed carvedilol 12.5 mg PO BID empagliflozin (Jardiance) 10 mg PO DAILY furosemide 40 mg PO DAILY sacubitril-valsartan 49-51 mg 1 tab PO BID spironolactone 25 mg See Protocol PO DAILY HPI Comments Details: This is a 34-year-old male patient coming in for a follow-up visit status post cardiac catheterization. Patient with history of tobacco, cocaine, steroids use, and cardiomyopathy with an ejection fraction between 10-15%. Previously patient was started on neurohormonal directed medical therapy with no improvement noted in the LV function and a repeat echocardiogram. Patient therefore underwent an ischemic workup with a cardiac catheterization at [facility] with Dr. Goff. Today, patient reports feeling well overall without any cardiac symptoms of exertional chest pain, shortness of breath, palpitations, dizziness, orthopnea, PND, leg edema, presyncope or syncope. Patient unfortunately continues to use cocaine, steroids, and drinks alcohol. Patient is stating today that he is going to stop using everything and focus on his health now. Patient is reporting compliance with his medications. [facility] Medical History (Updated 03/20/25 @ 08:55 by Adriano Kincaid NP) Heart failure with reduced ejection fraction Cardiomyopathy Cardiomegaly Cocaine abuse Smoker unmotivated to quit Smoker Asthma Surgical History History of hand surgery Family History Paternal Grandfather Heart attack Father High blood pressure COPD (chronic obstructive pulmonary disease) Mother Heart attack Maternal Grandfather Heart attack Social History Household Members: None Housing: House Do you presently have visiting nurse or other home services: No Alcohol intake: current Patient Tobacco Use Status: Current everyday Tobacco user Tobacco use type: Cigarette Cigarette Packs Per Day: 0.5 Cigarettes Per Day: 10.0 e-Cigarette/Vaping Use: Currently Using Second Hand Smoke Exposure: No Substance Use Type: Crack/Cocaine and Marijuana service: No Review of Systems Const Denies daytime sleepiness, Denies difficulty sleeping, Denies snoring, Denies stops breathing during sleep and Denies weakness Card Denies chest pain, Denies rapid heart rate, Denies irregular heart rhythm, Denies claudication, Denies leg edema, Denies lightheadedness, Reports palpitations, Reports dyspnea, Denies dyspnea on exertion, Denies orthopnea, Denies paroxysmal nocturnal dyspnea and Denies slow heart rate Resp Denies cough, Reports dyspnea, Denies dyspnea on exertion and Denies snoring GI Reports no additional complaints, Denies hematochezia, Denies change in stool character and Denies dyspepsia Musc Denies abnormal gait, Denies muscle weakness and Denies numbness Neuro Denies abnormal gait, Denies numbness and Denies weakness Endo Reports palpitations Physical Exam Vital Signs: Last Vital Signs Pulse 113 H 03/19/25 14:49 BP 112/74 03/19/25 14:49 BMI result Body Mass Index 32.0 Const General: cooperative, healthy appearing, comfortable and no acute distress Orientation/consciousness: patient oriented x3 HEENT Head: Yes normal to inspection Neck Neck: Yes normal visual inspection, Yes trachea midline and Yes supple Chest Chest palpation & inspection: normal inspection of the chest Resp Effort & Inspection: normal respiratory effort Auscultation: clear to auscultation bilaterally, no crackles, no rales, no rhonchi and no wheezes Cardio Jugular venous distension: no JVD Palpation: normal PMI Rate: regular rate Rhythm: regular rhythm Heart sounds: S1 normal heart sound present, S2 normal heart sound present, no click, no gallops, no murmurs and no rubs Peripheral pulses: Peripheral pulses 2+ throughout GI Inspection: Yes normal to inspection Palpation (GI): Soft to palpation Auscultation: normal bowel sounds Skin General skin exam: no rashes or lesions noted Neuro General: patient oriented x3 Extrem General: Yes normal to inspection, No no pedal edema and No calf tenderness Psych Appearance: grossly normal Mental Status: mental status grossly normal Speech and movement: Normal speech and movement present Office Procedures EKG Details: EKG today showed questionable sinus tach versus atrial tach given the fact that patient's P wave is difficult to view. In some leads with a P-wave is visible however morphology is different compared to previous EKGs and if that is truly a P wave, TX interval is prolonged at 02:20 milliseconds. Otherwise EKG shows minimal voltage criteria for LVH, nonspecific STT wave abnormality, [place]. [id number], Complete Assessment & Plan Assessment & Plan (1) Status post cardiac catheterization: Code(s): Z98.890 - Other specified postprocedural states Plan: 12/23/24-echo study showed a severely reduced LV systolic function with ejection fraction between 10-15%. 03/03/2025-patient underwent cardiac catheterization with Dr. Goff at [facility] that showed no significant coronary artery disease. At risk cardiac catheterization site is well healed. (2) Nonischemic cardiomyopathy: Code(s): I42.8 - Other cardiomyopathies Category: Medical Plan: As above. Continue neurohormonal guided medical therapy with carvedilol, Jardiance, Lasix, Entresto, and spironolactone. We will repeat an echo in 3 months. (3) Cardiomegaly: Code(s): I51.7 - Cardiomegaly Category: Medical Plan: As above. (4) Abnormal EKG: Code(s): R94.31 - Abnormal electrocardiogram [ECG] [EKG] Plan: EKG today showed questionable sinus tachycardia versus atrial tachycardia with P-waves difficult to view. In some leads P waves visible however morphology changed from last EKG's P wave. We will get a Holter study to understand better if this is truly sinus tachycardia or atrial tachycardia. For now, we will increase carvedilol to 25 mg b.i.d.. If questionable atrial tachycardia then patient may need amiodarone. - reviewed with Dr. Tavares (5) Hypertension: Code(s): I10 - Essential (primary) hypertension Category: Medical Plan: Blood pressure is within normal limits. Advised monitoring blood pressures with a goal less than 130/80. (6) Substance abuse: Code(s): F19.10 - Other psychoactive substance abuse, uncomplicated Category: Medical Plan: Patient is continuing to use cocaine and steroids. Patient also states that he is drinking occasionally but is reporting that he is going to stop using all of these for which patient was commended and encouraged. Discussed in detail about risks of continuing to use them. Patient verbalizes understanding. Advised heart healthy diet, medication compliance, smoking cessation, and avoiding cocaine, alcohol, and steroids use. We will follow up with the patient in 3-4 months. In the interim, patient will call the office with any concerns or change in symptoms. This note was generated using voice recognition software. While every effort has been made to ensure accuracy and proper crib clerk, there may be occasional errors that could affect the content or meaning of the described symptoms. Orders: Orders CA echo transthoracic complete 3 Months I42.9 - Cardiomyopathy, unspecified ECG 3 day holter monitor 03/19/25 R00.0 - Tachycardia, unspecified AMB EKG-In Office 03/19/25 I42.9 - Cardiomyopathy, unspecified Medications: New carvedilol must administer with a meal/food 25 mg PO BID 90 tabs 3RF Discontinued carvedilol must administer with a meal/food Discontinued Reason: Doctor's Order 12.5 mg PO BID 90 tabs 3RF Coding Level of Care Code Est Pt Level 4 (82270) Complex EM visit Add On G2211 Diagnoses Status post cardiac catheterization Z98.890 Nonischemic cardiomyopathy I42.8 Cardiomegaly I51.7 Abnormal EKG R94.31 Hypertension I10 Substance abuse F19.10 CPT Codes EKG - CPT: 19073-[id number], Complete ([id number]) Time Spent (min) 33 Comment Time spent in reviewing the chart, test results, assessment, counseling and documentation.
--- OUTSIDE RECORDS SUMMARY | 2025-03-19 15:20 | XMS_ITS | Clinical Summary ---
Author Organization [employer] Address [address] [place] [address] [address] [place] [address] Care Team Providers Care Engagement Mgr Name Role Phone Unavailable Primary Care Provider [...] HEPATITIS C ANTIBODY NON-REACT ASTER NON-REACT ASTER [facility] INDEX 0.03 <1.00 [facility] Comment: HCV antibody was non-reactive. There is no laboratory evidence of HCV infection. In most cases, no further action is required. However, if recent HCV exposure is suspected, a test for HCV RNA (test code 05345) is suggested. For additional information please refer to http://[email or web address]/faq/HCA12z7 (This link is being provided for informational/ educational purposes only.) HEPATITIS C ANTIBODY NON-REACT ASTER NON-REACT ASTER [facility] INDEX 0.03 <1.00 [facility] Comment: HCV antibody was non-reactive. There is no laboratory evidence of HCV infection. In most cases, no further action is required. However, if recent HCV exposure is suspected, a test for HCV RNA (test code 38614) is suggested. For additional information please refer to http://[email or web address]/faq/LHV40r2 (This link is being provided for informational/ educational purposes only.) HEPATITIS C ANTIBODY NON-REACT ASTER NON-REACT ASTER [facility] INDEX 0.03 <1.00 [facility] Comment: HCV antibody was non-reactive. There is no laboratory evidence of HCV infection. In most cases, no further action is required. However, if recent HCV exposure is suspected, a test for HCV RNA (test code 97677) is suggested. For additional information please refer to http://[facility]/faq/UGI99p3 (This link is being provided for informational/ educational purposes only.) HEPATITIS C ANTIBODY NON-REACT ASTER NON-REACT ASTER [facility] INDEX 0.03 <1.00 [facility] Comment: HCV antibody was non-reactive. There is no laboratory evidence of HCV infection. In most cases, no further action is required. However, if recent HCV exposure is suspected, a test for HCV RNA (test code 92930) is suggested. For additional information please refer to http://Md[employer]sell/faq/QNW88m3 (This link is being provided for informational/ educational purposes only.) HEPATITIS C ANTIBODY NON-REACT ASTER NON-REACT ASTER [facility] INDEX 0.03 <1.00 [facility] Comment: HCV antibody was non-reactive. There is no laboratory evidence of HCV infection. In most cases, no further action is required. However, if recent HCV exposure is suspected, a test for HCV RNA (test code 31965) is suggested. For additional information please refer to http://Md[employer]Outsell/faq/RRG34r1 (This link is being provided for informational/ educational purposes only.) 03/03/2020 11:2 2 AM EDT Adalberto Wright MD HISTORICAL/NON ORDERABLE LABS Final Result [facility] [address] * HIV 1/2 ANTIGEN/ANTIBODY,FOURTH GENERATION W/RFL (03/03/2020 11:22 AM EDT) HIV-1/2 ANTIGEN AND ANTIBODIES, 4TH GENERATION W/ REFLEX NON-REACT ASTER NON-REACT ASTER [facility] Comment: HIV-1 antigen and HIV-1/HIV-2 [...] purpose. For additional information please refer to http://Md[employer].Outsell/faq/BMC878 (This link is being provided for informational/ educational purposes only.) The performance of this assay has not been clinically validated in patients less than 2 years old. HIV-1/2 ANTIGEN AND ANTIBODIES, 4TH GENERATION W/ REFLEX NON-REACT ASTER NON-REACT ASTER [facility] Comment: HIV-1 antigen and HIV-1/HIV-2 [...] purpose. For additional information please refer to http://Md[employer]Outsell/faq/VJB138 (This link is being provided for informational/ [...] purpose. For additional information please refer to http://[facility]/faq/BEW709 (This link is being provided for informational/ [...] purpose. For additional information please refer to http://M[employer]Outsell/faq/MHT363 (This link is being provided for informational/ educational purposes only.) The performance of this assay has not been clinically validated in patients less than 2 years old. 03/03/2020 11:2 2 AM EDT us Adalberto Wright MD LAB BLOOD ORDERABLES Final Res ult [facility] [address] [place] [address], from Last 3 Months or Most Recently Relevant to Health Maintenance Insurance [facility] ONE CARE < [address] [place] [phone]
== END 2025-03-19 15:46 | disposition home or self-care (01) ==
LOC: HO.HCS 14:40
DX: Z98.890 Other specified postprocedural states (principal); I42.8 Other cardiomyopathies; I51.7 Cardiomegaly; R94.31 Abnormal electrocardiogram [ECG] [EKG]; I10 Essential (primary) hypertension; F19.10 Other psychoactive substance abuse, uncomplicated
CPT/HCPCS: 99214; G2211

== ENCOUNTER → 2025-03-19 14:39 | Outpatient (BNVA) | payer OTHER, SELFPAY | DX: Z98.890 Other specified postprocedural states (principal); I42.8 Other cardiomyopathies; I51.7 Cardiomegaly; R94.31 Abnormal electrocardiogram [ECG] [EKG]; I10 Essential (primary) hypertension; F19.10 Other psychoactive substance abuse, uncomplicated; R00.0 Tachycardia, unspecified | CPT/HCPCS: 93005; 99212 ==

== ENCOUNTER 2025-06-03 09:55 | Inpatient (IN) | payer OTHER, SELFPAY ==
[2025-06-03] VITALS (10 sets, daily range): BP systolic 98–153; BP diastolic 52–88; PULSE 62–113; RESP 18–22; TEMP 36.3–37; O2SAT 91–95; BMI 31.1; BMI 30.5
--- NOTE | 2025-06-03 | ECG_ITS ---
Test Reason : ? rhythm change Blood Pressure : */* mmHG Vent. Rate : 99 BPM Atrial Rate : * BPM P-R Int : * ms QRS Dur : 122 ms QT Int : 414 ms P-R-T Axes : * 19 64 degrees QTcB Int : 531 ms Sinus with long WA interval Left ventricular hypertrophy with QRS widening ( Sokolow-Prince , Ruddy product ) Abnormal ECG When compared with ECG of 03-Jun-2025 10:11, WA prolongation Referred By: Eli Montes Electronically Signed By: JIMMY MCCARTHY
--- NOTE | ~2025-06-03 | XR_ITS ---
EXAMINATION: XR CHEST CLINICAL INFORMATION: SOB ? CHF COMPARISON: October 09, 2024 TECHNIQUE: Frontal view of the chest was obtained. FINDINGS: Cardiomegaly is again noted. Pulmonary vascularity is not enlarged. Left hemidiaphragm is partially obscured laterally. XR/XR chest 1V IMPRESSION: Left basilar atelectasis versus pneumonia. Cardiomegaly. Electronically signed by: Constantino Rivero MD 06/03/2025 10:54 AM EDT
--- NOTE | ~2025-06-03 | CT_ITS ---
EXAMINATION: CT CHEST WITHOUT CONTRAST CLINICAL INFORMATION: Possible left lower lobe pneumonia. COMPARISON: CT chest PE protocol dated October 09, 2024. TECHNIQUE: Multidetector volumetric CT imaging of the chest was done. Axial MIP volume rendering provided. Sagittal and coronal reformatted images were obtained. This CT examination was performed using dose optimization techniques as appropriate, variously including the following: *Automated exposure control *Adjustment of mA and/or kV according to patient size (this includes techniques or standardized protocols for targeted exams where dose is matched to indication/reason for exam; i.e. extremities or head) *Use of iterative reconstruction technique DLP: 370 mGy-cm FINDINGS: SCALE ASSEMBLY SET UP WORKER: Heart silhouette size is enlarged. Upper extremities at the size of the head. Pulmonary reticular pattern. LUNGS: Pulmonary patchy and confluent groundglass with linear and confluent attenuation in the lower lung lobes. No gross pulmonary nodules. No bronchiectasis. No honeycombing. MEDIASTINUM: Mediastinal lymphadenopathy and likely perihilar. Heart is enlarged, all 4 chambers. No pericardial effusion. No aneurysm, thoracic aorta. No gross calcified plaques. No pneumomediastinum. No hemopericardium. The thyroid gland is not enlarged. CORONARY ARTERY CALCIFICATION: None visualized on this study. PLEURA: Left-sided pleural effusion, small to moderate volume. Right-sided pleural effusion, small volume. No pneumothorax. No hemothorax. No calcified pleural plaques. AXILLA: Axillary lymphadenopathy. UPPER ABDOMEN: Probably enlarged liver and spleen. Mild prominent lymph nodes, retroperitoneum and periportal. Gallbladder is contracted. Abundant stool in the transverse colon. OSSEOUS STRUCTURES: Mild multilevel spondylosis and multilevel Schmorl nodes throughout the axial skeleton. No acute fracture or listhesis. No acute rib fractures. The clavicles and scapula are intact. Mild degenerative changes in the glenohumeral joints. CT/CT chest wo IV con IMPRESSION: Cardiomegaly. Probable hepatosplenomegaly with mediastinal and axillary lymphadenopathy, bilateral small to moderate volume pleural effusions and multifocal pneumonia.. Concerning for an lymphoproliferative disorder versus granulomatous disease process versus autoimmune disorder among other etiologies. Fleischner guidelines were followed. Electronically signed by: Quintin Antonio MD 06/05/2025 07:09 AM EDT
--- NOTE | 2025-06-03 10:08 | ECG_ITS ---
Test Reason : CHEST PAIN Blood Pressure : */* mmHG Vent. Rate : 110 BPM Atrial Rate : 110 BPM P-R Int : 160 ms QRS Dur : 106 ms QT Int : 366 ms P-R-T Axes : 46 54 81 degrees QTcB Int : 495 ms Sinus tachycardia Possible Left atrial enlargement Left ventricular hypertrophy ( Sokolow-Prince , Pattison product ) Nonspecific T wave abnormality Abnormal ECG When compared with ECG of 09-Oct-2024 14:15, Premature supraventricular complexes are no longer Present Referred By: Generic ED Physician Electronically Signed By: JIMMY MCCARTHY
--- NOTE | 2025-06-03 10:39 | ED_ITS ---
HPI - SOB/Dyspnea General Chief Complaint: Dyspnea Stated Complaint: sob Time Seen by Provider: 06/03/25 10:14 Source: patient Mode of arrival: ambulatory Limitations: no limitations History of Present Illness HPI Narrative: This is a 34 years old male with a history of nonischemic cardiomyopathy normal coronary arteries by catheterization EF 10% presented to the emergency department with a chief complaint of shortness of breath on exertion. He has a history of CHF with the [employer] class 3. The for the last 3 days he has been having increasing shortness of breath MD elicited complaint: shortness of breath Pertinent past history: congestive heart failure Onset (ago): day(s) (3) Context: occurred during exertion Severity: moderate Exacerbating factors: lying flat and exertion Relieving factors: nothing Known history of: congestive heart failure Associated symptoms: denies other symptoms Related Data Home Medications ?Medication ?Instructions ?Recorded ?Confirmed carvedilol 12.5 mg tablet 12.5 mg PO BID 06/03/2505/07 Previous Rx's ?Medication ?Instructions ?Recorded blood pressure monitor #1 ea 10/29/24 empagliflozin 10 mg tablet 10 mg PO DAILY #90 tabs (Jardiance) furosemide 40 mg tablet 40 mg PO DAILY #90 tabs 12/05 08/30 spironolactone 25 mg tablet 25 mg PO DAILY #90 tabs sacubitril 49 mg-valsartan 51 mg 1 tab PO BID #90 tabs 01/22/25 tablet Allergies Allergy/AdvReac Type Severity Reaction Status Date / Time No Known Allergies Allergy Verified 06/03/25 10:06 Review of Systems 2 Constitutional: Constitutional: Reports no additional constitutional complaints Cardiovascular: Cardiovascular: Reports no additional cardiovascular complaints Respiratory: Respiratory: Reports no additional respiratory complaints [facility] Past Medical History Attestation statement: The following information was validated with the patient. [facility] Narrative: CHF nonischemic cardiomyopathy Medical History Heart failure with reduced ejection fraction Cardiomyopathy Cardiomegaly Cocaine abuse Smoker Asthma Surgical History History of hand surgery Family History Family History Paternal Grandfather Heart attack Father High blood pressure COPD (chronic obstructive pulmonary disease) Mother Heart attack Maternal Grandfather Heart attack Social History Social History Household Members: None Housing: House Do you presently have visiting nurse or other home services: No Alcohol intake: current Patient Tobacco Use Status: Former Tobacco user Tobacco use type: Cigarette Cigarette Packs Per Day: 0.5 Cigarettes Per Day: 10.0 e-Cigarette/Vaping Use: Currently Using Second Hand Smoke Exposure: No Substance Use Type: Crack/Cocaine and Marijuana Have you been hit, kicked, punched, or otherwise hurt by someone within the past year? If so, by whom?: No Do you feel safe in your current relationship?: No Current Relationship Is there a partner from a previous relationship who is making you feel unsafe now?: No Are you made to feel afraid or neglected: No Advance Directives: No Advance Directives Information Provided: Yes Do you have a plan to hurt others: No Plan Recently lost weight without trying: No How much weight loss: Not applicable Eating poorly because of decreased appetite: No Nutrition screen score: 0 Nutrition Risks: No Nutritional Risk Poor oral hygiene: No service: No Physical Exam 2 Exam: Exam: Not acute distress Vital Signs: Vital Signs: Last Vital Signs Temp 97.4 F 06/03/25 15:29 Pulse 94 06/03/25 15:29 Resp 20 06/03/25 15:29 BP 120/66 06/03/25 15:29 Pulse Ox 94 06/03/25 15:29 O2 Del Method Room Air 06/03/25 15:29 BMI result Body Mass Index 31.1 Tachycardia noted Const: General: cooperative Nutritional Appearance: overweight O rientation/consciousness: patient oriented x3 Limitations: no limitations HEENT: Head: Yes normal to inspection Ears: hearing grossly normal bilaterally General nose exam: Normal external nose present Face and sinus: Yes normal facial exam Mouth: Normal oral and palatal mucosa present Neck: Neck: Yes normal visual inspection and Yes full ROM Chest: Chest palpation & inspection: normal inspection of the chest Resp: Effort & Inspection: normal respiratory effort Auscultation: rhonchi Cardio: Jugular venous distension: no JVD Rate: regular rate Rhythm: r egular rhythm GI: Inspection: Yes normal to inspection Palpation (GI): Soft to palpation, not firm and nontender Percussion: Yes normal to percussion Auscultation: normal bowel sounds Skin: General skin exam: no rashes or lesions noted Lesions: no lesions Rashes: no rashes Neuro: General: patient oriented x3 Medications Administered Generic Name Dose Route Start Last Admin Trade Name Freq PRN Reason Stop Dose Admin Benzocaine 1 lozenge 06/03/25 13:04 06/03/25 13:19 Throat Lozenge, Medicated Lozenge MUCOUS MEM 1 lozenge Q2H PRN Administration Sore Throat Carvedilol 12.5 mg 06/03/25 13:15 06/03/25 13:18 Carvedilol 12.5 Mg Tablet PO 12.5 mg BID EUNICE Administration Protocol Enoxaparin Sodium 40 mg 06/03/25 14:00 06/03/25 13:21 Enoxaparin Sodium 40 Mg/0.4 Ml Syringe SUBCUT Not Given Q24H EUNICE Discontinued Medications Generic Name Dose Route Start Last Admin Trade Name Freq PRN Reason Stop Dose Admin Furosemide 40 mg 06/03/25 11:35 06/03/25 12:04 Furosemide 40 Mg/4 Ml Vial IVPUSH 06/03/25 11:36 40 mg ONCE ONE Administration Protocol Medical Decision Making Medical Decision Making [facility] Narrative: Patient is here with shortness of breath he has a history of nonischemic cardiomyopathy we will go ahead and do a chest x-ray EKG and labs working diagnosis is congestive heart failure Differential Diagnosis Differential Diagnoses: The differential diagnosis associated with the presentation includes CHF/pneumonia Admission/Observation Consideration of admission/observation: Escalation of care including admission/observation considered Consult Healthcare Provider Management of the patient was discussed with: Hospitalist Lab Data [facility] Lab Attestation statement: I reviewed the patient's lab results. 06/03/25 10:43 06/03/25 10:43 Labs: Lab Results 06/03/25 06/03/25 Range/Units 10:43 10:43 WBC 11.0 H (4.8-10.8) X10*3/uL RBC 4.85 (4.60-5.80) X10*6/uL Hgb 15.5 (14.0-18.0) g/dl Hct 45.5 (42.0-52.0) % MCV 93.8 (80.0-98.0) fL MCH 32.0 (27.0-33.0) pg MCHC 34.1 (31.0-36.0) g/dl RDW 13.2 (11.0-16.0) % Plt Count 188 (160-400) X10*3/uL MPV 11.1 (9.4-12.4) fL Immature Gran % (Auto) 0.3 (0.0-0.4) % Neut % (Auto) 81.9 H (45-73) % Lymph % (Auto) 11.1 L (20-40) % Dunn % (Auto) 4.7 (2-11) % Eos % (Auto) 1.5 (0-4) % Baso % (Auto) 0.5 (0-2) % Lymph # (Auto) 1.2 (1.2-4.9) X10*3/uL Dunn # (Auto) 0.5 (0.1-1.2) X10*3/uL Eos # (Auto) 0.2 (0.0-0.4) X10*3/uL Baso # (Auto) 0.1 (0.0-0.2) X10*3/uL Abs Immat Gran (auto) 0.03 (0.00-0.03) X10*3/uL Absolute Neuts (auto) 9.0 H (2.0-8.3) x10*3/uL Absolute Nucleated RBC 0.000 (0.0-0.012) X10*3/uL Nucleated RBC % (auto) 0.0 (0.0-0.2) /100WBC Sodium 141 (135-145) mmol/L Potassium 4.3 (3.3-5.1) mmol/L Chloride 111 H (96-108) mmol/L Carbon Dioxide 23 (22-29) mmol/L Anion Gap 11 L (12-20) BUN 13 (9-16) mg/dL Creatinine 0.82 (0.5-1.4) mg/dL Estim Creat Clear Calc 164.4 Estimated GFR > 60 Random Glucose 113 (60-115) mg/dL Calcium 8.7 (8.4-10.2) mg/dL Total Bilirubin 1.4 H (0.0-1.0) mg/dL AST 23 (5-37) U/L ALT 14 (0-40) U/L Alkaline Phosphatase 77 (39-117) U/L Troponin I High Sens Cancelled 33.5 NT-Pro-B Natriuret Pep 3411.8 H (<300) pg/mL Total Protein 6.7 (6.5-8.0) g/dL Albumin 4.1 (3.5-5.0) g/dL Independent Interpretation I performed an independent interpretation of an: EKG (EKG was reviewed interpreted by me as sinus tachycardia rate is 110 intraventricular conduction delayed normal axis no acute ischemia) and Plain X-Ray Interpretation: I personally reviewed interpreted the chest x-ray as cardiomegaly left pleural effusion Radiology Impression Discussion of test interpretation with radiology: I have reviewed the radiologist's reading. Radiologist Impression: I have reviewed the radiology reading External Record Review External record reviewed: Inpatient record and Office record Chronic Conditions Patient?s care impacted by: Other (CHF) Critical Care Time Critical Care Time Critical Care Time: Yes Total Critical Care Time: 60 Attestation: CHF IV FUROSEMIDE Discharge Plan Discharge Clinical Impression: CHF (congestive heart failure) Qualifiers: Heart failure type: unspecified Heart failure chronicity: acute Qualified Code(s): I50.9 - Heart failure, unspecified Patient Disposition: Admitted As Inpatient Interventions: Admission Worksheet (ED) Last Done: 06/03/25 13:42 Discharge Date/Time: 06/03/25 14:35
[2025-06-03 10:49] LABS: MANUAL DIFF FLAG NO
[2025-06-03 10:52] LABS: Hematocrit 45.5 % (42.0-52.0); Hemoglobin 15.5 g/dl (14.0-18.0); Imm Gran Abs Auto 0.03 X10*3/uL (0.00-0.03); Imm Gran Pct Auto 0.3 % (0.0-0.4); Lymphocytes Absolute Auto 1.2 X10*3/uL (1.2-4.9); Mean Corpuscular HGB Conc 34.1 g/dl (31.0-36.0); Mean Corpuscular Hemoglobin 32.0 pg (27.0-33.0); Mean Corpuscular Volume 93.8 fL (80.0-98.0); NRBC Abs Auto 0.000 X10*3/uL (0.0-0.012); NRBC Pct Auto 0.0 /100WBC (0.0-0.2); Platelet Count 188 X10*3/uL (160-400); Red Blood Count 4.85 X10*6/uL (4.60-5.80); White Blood Count 11.0 X10*3/uL (4.8-10.8)
[2025-06-03 11:18] LABS: Alanine Aminotransferase 14 U/L (0-40); Albumin Level 4.1 g/dL (3.5-5.0); Alkaline Phosphatase 77 U/L (39-117); Anion Gap 11 (12-20); Aspartate Amino Transferase 23 U/L (5-37); Blood Urea Nitrogen 13 mg/dL (9-16); Calcium 8.7 mg/dL (8.4-10.2); Carbon Dioxide 23 mmol/L (22-29); Chloride 111 mmol/L (96-108); Creatinine Clr Calc Pharmacy 164.4; Estimated Glomerular Filt Rate > 60; Potassium 4.3 mmol/L (3.3-5.1); Sodium 141 mmol/L (135-145); Total Protein 6.7 g/dL (6.5-8.0)
[2025-06-03 11:20] LABS: Troponin-I High Sensitivity 33.5 ng/L (<3.5-35.0)
[2025-06-03] MEDS: Furosemide 40 MG/4 ML VIAL IVPUSH ×2 (12:04→19:35)
--- NOTE | 2025-06-03 12:10 | PHA.MEDREC ---
Addendum entered by Stephanie Alcantara RPh 06/03/25 12:15: Reviewed by [facility] Original Note: Pharmacy Consult ? Medication Reconciliation Pharmacy has completed the medication reconciliation. Spoke with pt and he confirmed his medications; pt states he has not been compliant with taking any of his meds and has not taken them in over 1 week. Pt takes some OTC vitamins but couldn't remember the names of them.
--- NOTE | 2025-06-03 12:55 | P.HPHOSP_ITS ---
History of Present Illness Date of Service: 06/03/25 Chief Complaint: Shortness of breath 34 year old man presenting with shortness of breath over the last several days. He has a history of severe cardiomyopathy. 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 He reported midsternal chest pain but thought that it might be related to the dry cough that he has. He reported a dry cough corner along with the shortness of breath. He denied fever, chills, nausea, vomiting, diarrhea. Chest x-ray in the ER showed left basilar atelectasis versus pneumonia with cardiomegaly. BNP noted to be 3411. In the ER he was given a dose of IV Lasix. He will be admitted for further management and treatment of acute on chronic congestive heart failure. Review of Systems 2 Review of Systems: Denies any recent fever chills or decrease in appetite respiratory see HPI cardiovascular see HPI gastrointestinal denies any dysphagia abdominal pain nausea vomiting or diarrhea genitourinary denies any dysuria frequency or hematuria musculoskeletal denies any joint pain or swelling neuropsych denies any weakness or seizures all other systems reviewed are negative [facility] Medical History Heart failure with reduced ejection fraction Cardiomyopathy Cardiomegaly Cocaine abuse Smoker Asthma Family History Paternal Grandfather Heart attack Father High blood pressure COPD (chronic obstructive pulmonary disease) Mother Heart attack Maternal Grandfather Heart attack Surgical History History of hand surgery Social History Household Members: None Housing: House Do you presently have visiting nurse or other home services: No Alcohol intake: current Patient Tobacco Use Status: Former Tobacco user Tobacco use type: Cigarette Cigarette Packs Per Day: 0.5 Cigarettes Per Day: 10.0 e-Cigarette/Vaping Use: Currently Using Second Hand Smoke Exposure: No Substance Use Type: Crack/Cocaine and Marijuana Have you been hit, kicked, punched, or otherwise hurt by someone within the past year? If so, by whom?: No Do you feel safe in your current relationship?: No Current Relationship Is there a partner from a previous relationship who is making you feel unsafe now?: No Are you made to feel afraid or neglected: No Advance Directives: No Advance Directives Information Provided: Yes Do you have a plan to hurt others: No Plan Recently lost weight without trying: No How much weight loss: Not applicable Eating poorly because of decreased appetite: No Nutrition screen score: 0 Nutrition Risks: No Nutritional Risk Poor oral hygiene: No service: No Meds Allergies Allergy/AdvReac Type Severity Reaction Status Date / Time No Known Allergies Allergy Verified 06/03/25 10:06 Active Medications: Current Medications Acetaminophen (Acetaminophen 325 Mg Tablet) 650 mg PO Q6H PRN PRN Reason: Pain, Mild 1-3,fever,headache Calcium Carbonate (Calcium Carbonate 750 Mg Tab.Chew) 750 mg PO Q4H PRN PRN Reason: Heartburn Enoxaparin Sodium (Enoxaparin Sodium 40 Mg/0.4 Ml Syringe) 40 mg SUBCUT Q24H EUNICE Furosemide (Furosemide 40 Mg/4 Ml Vial) 40 mg IVPUSH BID@0900,1800 EUNICE; Protocol Magnesium Hydroxide (Milk Of Magnesia 30 Ml Oral.Susp) 30 ml PO DAILY PRN PRN Reason: Constipation Melatonin (Melatonin 3 Mg Tablet) 6 mg PO BEDTIME PRN PRN Reason: Insomnia Ondansetron HCl (Ondansetron Hcl 4 Mg/2 Ml Vial) 4 mg IVPUSH Q8H PRN PRN Reason: Nausea and Vomiting Sodium Chloride (0.9 % Sodium Chloride Flush 3 Ml Syringe) 3 ml IVFLUSH QSHIFT [facility] Home Medications ?Medication ?Instructions ?Recorded ?Confirmed ?Last Taken ?Type carvedilol 12.5 mg tablet 12.5 mg PO BID 06/03/2505/07 1 Week Ago History ~05/27/25 Physical Exam 2 Vital Signs and Narrative: Vital Signs: Last Vital Signs Pulse 108 H 06/03/25 10:28 Resp 20 06/03/25 10:28 BP 115/84 06/03/25 12:04 Pulse Ox 92 06/03/25 10:28 O2 Del Method Room Air 06/03/25 10:28 BMI result Body Mass Index 31.1 Appearing in no acute distress head is normocephalic atraumatic eyes pupils are PERRLA sclera is anicteric mouth throat mucous membranes are intact and moist neck is supple no lymphadenopathy, no JVD noted lung sounds rales heart regular rate rhythm, clear S1, S2 positive bowel sounds, abdomen is soft, nontender neuro patient is alert x3, no focal deficits Results Labs 06/03/25 10:43 06/03/25 10:43 Labs: Laboratory Results - last 24 hr 06/03/25 06/03/25 10:43 10:43 MCV 93.8 MCH 32.0 MCHC 34.1 RDW 13.2 Plt Count 188 MPV 11.1 Immature Gran % (Auto) 0.3 Neut % (Auto) 81.9 H Lymph % (Auto) 11.1 L Hodgeman % (Auto) 4.7 Eos % (Auto) 1.5 Baso % (Auto) 0.5 Lymph # (Auto) 1.2 Hodgeman # (Auto) 0.5 Eos # (Auto) 0.2 Baso # (Auto) 0.1 Abs Immat Gran (auto) 0.03 Absolute Neuts (auto) 9.0 H Absolute Nucleated RBC 0.000 Nucleated RBC % (auto) 0.0 Anion Gap 11 L Estim Creat Clear Calc 164.4 Estimated GFR > 60 Random Glucose 113 Calcium 8.7 Total Bilirubin 1.4 H AST 23 ALT 14 Alkaline Phosphatase 77 Troponin I High Sens Cancelled 33.5 NT-Pro-B Natriuret Pep 3411.8 H Total Protein 6.7 Albumin 4.1 Imaging Radiologist's Impressions: Impressions Chest X-Ray 06/03/25 10:41 IMPRESSION: Left basilar atelectasis versus pneumonia. Cardiomegaly. Electronically signed by: Constantino Rivero MD 06/03/2025 10:54 AM EDT Assessment and Plan (1) Nonischemic cardiomyopathy: Status: Acute Plan 34-year-old man admitted with acute on chronic heart failure with a history of severe cardiomyopathy Acute on chronic heart failure with reduced ejection fraction with history of nonischemic cardiomyopathy secondary to cocaine and alcohol use Last echocardiogram with EF of 10-15% with severe global hypokinesis Cardiac catheterization in February of 2025 with normal systemic pressures, normal LVEDP and no significant coronary artery disease BNP 94930 IV Lasix 40 mg IV b.i.d. Continue carvedilol, Jardiance, Entresto, spironolactone Cardiology consultation Monitor on telemetry Daily weights Strict intake and output Patient reports dry cough with sore throat Erythema noted Check throat swab Lozenges p.r.n. History of substance abuse and alcohol use. Patient reports last using alcohol drugs was 2 weeks ago Urine tox pending Tobacco use Patient reports that the has not used tobacco in over 2 weeks DVT prophylaxis with Lovenox Full code Quality Stroke Does the patient have a stroke diagnosis?: No VTE Prior VTE?: No VTE Risk Level:: Medical - moderate - high VTE Device Contraindication: Treatment Not Indicated VTE Drug Contraindication: N/A - Med Ordered
--- OUTSIDE RECORDS SUMMARY | 2025-06-03 13:12 | XMS_ITS | Clinical Summary ---
Author Organization [employer] Address [address] [place] [address] [address] [place] [address] Care Team Providers Care Senior Media Buyer Name Role Phone Unavailable Primary Care Provider Unavailabl e Allergies No known active allergies Medications acamprosate (Campral) 333 MG EC tabletIndicatio ns:Alcohol use disorder, severe, dependence (CMS/HCC) (HCC) Take 2 tablets (666 mg) by mouth [...] COVID-19 Vaccine (1 - 2023-2 5 season) 2025 Influenza Vaccine (#1) 2025 Zoster Vaccines (1 [...] a test for HCV RNA (test code 69115) is suggested. For additional information please refer to http://Emergency CallWorks.Applaud/faq/RAX22y3 (This link is being provided for informational/ educational purposes only.) HEPATITIS C ANTIBODY NON-REACT [facility] NON-REACT [facility] INDEX 0.03 <1.00 [facility] Comment: HCV antibody was non-reactive. There is no laboratory evidence of HCV infection. In most cases, no further action is required. However, if recent HCV exposure is suspected, a test for HCV RNA (test code 32053) is suggested. For additional information please refer to http://GetHired.com/faq/PNI66c8 (This link is being provided for informational/ educational purposes only.) HEPATITIS C ANTIBODY NON-REACT [facility] NON-REACT [facility] INDEX 0.03 <1.00 [facility] Comment: HCV antibody was non-reactive. There is no laboratory evidence of HCV infection. In most cases, no further action is required. However, if recent HCV exposure is suspected, a test for HCV RNA (test code 82829) is suggested. For additional information please refer to http://GetHired.com/faq/BEP26d9 (This link is being provided for informational/ educational purposes only.) HEPATITIS C ANTIBODY NON-REACT [facility] NON-REACT [facility] INDEX 0.03 <1.00 [facility] Comment: HCV antibody was non-reactive. There is no laboratory evidence of HCV infection. In most cases, no further action is required. However, if recent HCV exposure is suspected, a test for HCV RNA (test code 17732) is suggested. For additional information please refer to http://Emergency CallWorks.Applaud/faq/WKP65b4 (This link is being provided for informational/ educational purposes only.) HEPATITIS C ANTIBODY NON-REACT [facility] NON-REACT [facility] INDEX 0.03 <1.00 [facility] Comment: HCV antibody was non-reactive. There is no laboratory evidence of HCV infection. In most cases, no further action is required. However, if recent HCV exposure is suspected, a test for HCV RNA (test code 03180) is suggested. For additional information please refer to http://Emergency [email or web address]/faq/BBS46v7 (This link is being provided for informational/ educational purposes only.) 03/03/2020 11:2 2 AM EDT Adalberto rWight MD HISTORICAL/NON ORDERABLE LABS Final Result [facility] [address] [place] [address], * HIV 1/2 ANTIGEN/ANTIBODY,FOURTH GENERATION W/RFL (03/03/2020 [...] purpose. For additional information please refer to http://[email or web address] [email or web address]/faq/NVB134 (This link is being provided for informational/ [...] purpose. For additional information please refer to http://Emergency CallWorks.Applaud/faq/IQU917 (This link is being provided for informational/ [...] purpose. For additional information please refer to http://GetHired.com/faq/NWO531 (This link is being provided for informational/ [...] purpose. For additional information please refer to http://[email or web address] [email or web address]/faq/AAX940 (This link is being provided for informational/ educational purposes only.) The performance of this assay has not been clinically validated in patients less than 2 years old. 03/03/2020 11:2 2 AM EDT us Adalberto Wright MD LAB BLOOD ORDERABLES Final Res ult [facility] [address] from Last 3 Months or Most Recently Relevant to Health Maintenance Insurance [facility]ARE < [address] [place] [place] [id number]
[2025-06-03] MEDS: Throat Lozenge, Medicated LOZENGE 1 LOZENGE MUCOUS MEM ×2 (13:19→21:01)
--- NOTE | 2025-06-03 13:42 | HO.NURTONUR ---
Pt arrived to ED c/o worsening SOB and cough. Hx: CHF, nonischemic cardiomyopathy normal coronary arteries by catheterization EF 10%, and cocaine use. ED workup pos for pro-BNP 3411.8, chest XR cardiomegaly and L pleural effusion. Given 40mg Lasix IV. Pt denies CP/dizziness/palpitations. Pt on room air, aaox4, ambulatory/independent, calm/cooperative.
--- NOTE | 2025-06-03 16:00 | CA_ITS ---
Transthoracic Echocardiogram Patient (Last, First, Middle): Trung Le R Gender: Male Date of : 1990 Age: 34 Procedure Date: 06/03/2025 Procedure Type: Transthoracic Echocardiogram Location: [facility] [place] Height: 187.96 cm Weight: 109.77 kg BSA: 2.36 m2 Heart Rate: bpm BP: 125 / 84 mmHg Public Bath Attendant: Referring MD: Sheryl Ayala NP Symptoms: chf Study Quality: Fair ECG Rhythm: Sinus Conclusions: - The left ventricular systolic function is severely decreased. The calculated ejection fraction is 8% by biplane method. - No obvious valvular pathology seen on this study. Findings Procedure Information Contrast agent, definity, is being given per protocol without apparent complications. Left Ventricle Severely increased left ventricular cavity size. There is normal left ventricular wall thickness. The left ventricular systolic function is severely decreased. The calculated ejection fraction is 8% by biplane method. There is severe global hypokinesis. Diastolic function is indeterminate on the basis of available data. Right Ventricle Moderately increased right ventricular cavity size. There is mildly decreased right ventricular systolic function. Atria The left atrium is moderately dilated. The right atrium is severely dilated. Aortic Valve The aortic valve was not well visualized. There is no aortic valve stenosis. There is no aortic valve regurgitation. Mitral Valve The mitral valve appears normal. There is mild mitral valve regurgitation. There is no mitral valve stenosis. Pulmonic Valve The pulmonic valve is likely normal. Tricuspid Valve Normal tricuspid valve structure. There is trace tricuspid valve regurgitation. There is no evidence of pulmonary hypertension. Great Vessels The asc aorta is normal in size. Venous The inferior vena cava is normal in size and collapses greater than 50% with inspiration. Pericardium/Pleural There is no evidence of pericardial effusion. Prior Study Comparison No significant change compared to prior study dated: 12/23/2024. Recommendations, Care & Conclusions No obvious valvular pathology seen on this study. Measurements 2D Linear Measurements IVSd: 0.91 0.6-0.9/0.6-1.0 cm LVIDd: 7.83 3.9-5.3/4.2-5.9 cm LVIDd Index: 3.32 2.4-3.2/2.2-3.1 cm/m2 LVIDs: 7.45 2.0-3.6 cm LVPWd: 0.98 0.7-1.1 cm Ao Root: 3.30 2.1-3.5 cm LA Diam: 5.50 2.7-3.8/3.0-4.0 cm LAIDs Index: 2.33 1.5-2.3 cm/m2 LV Mass: 454.93 67-162/88-224 g LV Mass Index: 192.77 43-95/49-115 g/m2 LVOT Diam: 2.60 3.0+(-)1.3 cm 2D Systolic Function EF 4C: 6.25 >55% EF 2C: 4.48 >55% EF BiP: 7.81 >55% Mitral Valve MV Pk E: 0.98 MV Decel Time: 147.00 E'Lateral: 7.07 E'Medial: 2.50 E/E' Med: 39.10 E/E' Lat: 13.80 PHT: 43.00 MVA PHT: 5.12 Decel [place]: 6.67 Aortic Valve AoV Pk Nirav: 0.80 AoV Mn Nirav: 0.52 AoV VTI: 0.12 AoV Pk Grad: 3.00 Aov Mn Grad: 1.00 JANE Cont.VTI: 3.34 LVOT LVOT Pk Nirav: 0.48 LVOT Mn Nirav: 0.30 LVOT VTI: 0.08 LVOT Pk Grad: 1.00 LVOT Mn Grad: 0.00 LVOT Diam: 2.60 LVOT Area: 5.31 Diastolic Function MV Pk E: 0.98 E'Medial: 2.50 E/E' Med: 39.10 E' Laterial: 7.07 E/E' Lat: 13.80 Right Ventricle TAPSE (mm): 13.00 TVS' Nirav: 8.00 Tricuspid Valve TR Pk Nirav: 1.94 TR Pk Grad: 15.00 RA Press: 3.00 RVSP: 18.00 Great Vessels Aorta Ao Root-2D: 3.30 2.0-3.7 cm Ao Asc: 2.80 2.1-3.4 cm Pulmonary Valve PV Pk Nirav: 0.68 Peak PV Grad: 2.00 Updated in Other Vendor System with Status of Final Morgan Tavares MD electronically signed on 06/03/2025 5:40:42 PM with status of Final
[2025-06-03] MEDS: 0.9 % Sodium Chloride Flush 3 ML SYRINGE IVFLUSH ×2 (19:35→21:03)
[2025-06-03] MEDS: Sacubitril/Valsartan 49/51 1 TAB TABLET PO (21:03)
[2025-06-03 21:47] LABS: IDNOW Serial# 6674DD1D; Strep A Nucleic Acid Negative (Negative)
[2025-06-03 22:35] LABS: Cannabinoid Screen Urine Not Detected (Not Detect)
[2025-06-03 22:35] LABS: Anion Gap 12 (12-20); Blood Urea Nitrogen 19 mg/dL (9-16); Calcium 8.7 mg/dL (8.4-10.2); Carbon Dioxide 25 mmol/L (22-29); Chloride 105 mmol/L (96-108); Creatinine Clr Calc Pharmacy 128.2; Estimated Glomerular Filt Rate > 60; Magnesium 1.6 mg/dL (1.6-2.6); Potassium 4.1 mmol/L (3.3-5.1); Sodium 138 mmol/L (135-145)
[2025-06-04] VITALS (8 sets, daily range): BP systolic 92–126; BP diastolic 45–71; PULSE 54–93; RESP 16–18; TEMP 36.2–37.1; O2SAT 93–97; BMI 30.2
[2025-06-04] MEDS: Furosemide 40 MG/4 ML VIAL IVPUSH (08:46)
[2025-06-04] MEDS: Sacubitril/Valsartan 49/51 1 TAB TABLET PO (08:47)
[2025-06-04] MEDS: 0.9 % Sodium Chloride Flush 3 ML SYRINGE IVFLUSH ×2 (08:53→19:50)
--- NOTE | 2025-06-04 10:07 | P.CONCA_ITS ---
History of Present Illness History of Present Illness Date of Service: 06/04/25 Chief complaint: CHF Narrative: This is a cardiology consultation regarding congestive heart failure. Patient has a history of tobacco use, cocaine and it seems that he last used cocaine 2 weeks back. Per last notes, he has had cardiomyopathy with an ejection fraction of 10-15%. He was put on guideline based medical therapy with no improvement in cardiac function. Per last office note, it seems that he was continuing to use cocaine and steroids and drinking alcohol. He has undergone cardiac catheterization but no significant CAD. Per admission notes, there was mentioned of stopping all his medications about 2 weeks ago. He has been short of breath for the last few days and that led to another hospitalization and he is currently treated for congestive heart failure. Review of Systems 2 Review of Systems: Yes all other systems are reviewed and are negative Constitutional: Constitutional: Reports as per HPI and Reports no additional constitutional complaints Eyes: Eyes: Reports as per HPI and Denies no additional eye complaints ENT: Denies system reviewed and no additional complaints, except as documented and Reports as per HPI Cardiovascular: Cardiovascular: Reports as per HPI, Reports no additional cardiovascular complaints, Denies acrocyanosis, Denies cool extremities, Denies chest pain, Denies leg edema, Denies lightheadedness, Denies palpitations and Reports dyspnea Respiratory: Respiratory: Reports as per HPI, Denies no additional respiratory complaints and Reports dyspnea Gastrointestinal: Gastrointestinal: Reports as per HPI and Denies no additional gastrointestinal complaints Genitourinary: Genitourinary: Reports no additional male genitourinary complaints and Reports as per HPI Musculoskeletal: Musculoskeletal: Reports no additional musculoskeletal complaints and Reports as per HPI Integumentary/Breasts: Skin/Breast: Reports system reviewed and no additional complaints, except as docu Neurologic: Reports system reviewed and no additional complaints, except as documented and Reports as per HPI Psychiatric: Psychiatric: Reports no additional psychiatric complaints and Reports as per HPI Endocrine: Endocrine: Reports no additional endocrine complaints, Reports as per HPI and Denies palpitations Hematologic/Lymphatic: Hematologic/Lymphatic: Reports no additional hematologic/lymphatic complaints and Reports as per HPI Allergic/Immunologic: Allergic/Immunologic: Reports no additional allergic/immunologic complaints and Reports as per HPI [facility] Past Medical History Medical History (Updated 06/04/25 @ 10:10 by Morgan Tavares MD) Heart failure with reduced ejection fraction Cardiomyopathy Cardiomegaly Cocaine abuse Smoker Asthma Family History Family History Paternal Grandfather Heart attack Father High blood pressure COPD (chronic obstructive pulmonary disease) Mother Heart attack Maternal Grandfather Heart attack Surgical History Surgical History History of hand surgery Social History Social History Household Members: None Housing: House Do you presently have visiting nurse or other home services: No Alcohol intake: current Patient Tobacco Use Status: Former Tobacco user Tobacco use type: Cigarette Cigarette Packs Per Day: 0.5 Cigarettes Per Day: 10.0 e-Cigarette/Vaping Use: Currently Using Second Hand Smoke Exposure: No Substance Use Type: Crack/Cocaine and Marijuana Currently Displaying Signs/Symptoms of Drug Intoxication Withdrawal: No Have you been hit, kicked, punched, or otherwise hurt by someone within the past year? If so, by whom?: No Do you feel safe in your current relationship?: No Current Relationship Is there a partner from a previous relationship who is making you feel unsafe now?: No Are you made to feel afraid or neglected: No Advance Directives: No Advance Directives Information Provided: Yes Do you have a plan to hurt others: No Plan Recently lost weight without trying: No How much weight loss: Not applicable Eating poorly because of decreased appetite: No Nutrition screen score: 0 Nutrition Risks: No Nutritional Risk Poor oral hygiene: No service: No Meds Allergies Allergy/AdvReac Type Severity Reaction Status Date / Time No Known Allergies Allergy Verified 06/03/25 10:06 Active Medications: Current Medications Acetaminophen (Acetaminophen 325 Mg Tablet) 650 mg PO Q6H PRN PRN Reason: Pain, Mild 1-3,fever,headache Last Admin: 06/03/25 21:07 Dose: 650 mg Benzocaine (Throat Lozenge, Medicated Lozenge) 1 lozenge MUCOUS MEM Q2H PRN PRN Reason: Sore Throat Last Admin: 06/03/25 21:01 Dose: 1 lozenge Calcium Carbonate (Calcium Carbonate 750 Mg Tab.Chew) 750 mg PO Q4H PRN PRN Reason: Heartburn Carvedilol (Carvedilol 12.5 Mg Tablet) 12.5 mg PO BID COUNTS INCLUDE 234 BEDS AT THE [facility]; Protocol Last Admin: 06/04/25 08:46 Dose: 12.5 mg Empagliflozin (Empagliflozin 10 Mg Tablet) 10 mg PO DAILY COUNTS INCLUDE 234 BEDS AT THE [facility] Last Admin: 06/04/25 08:47 Dose: 10 mg Enoxaparin Sodium (Enoxaparin Sodium 40 Mg/0.4 Ml Syringe) 40 mg SUBCUT Q24H COUNTS INCLUDE 234 BEDS AT THE [facility] Last Admin: 06/03/25 13:21 Dose: Not Given Furosemide (Furosemide 40 Mg/4 Ml Vial) 40 mg IVPUSH BID@0900,1800 COUNTS INCLUDE 234 BEDS AT THE [facility]; Protocol Last Admin: 06/04/25 08:46 Dose: 40 mg Magnesium Hydroxide (Milk Of Magnesia 30 Ml Oral.Susp) 30 ml PO DAILY PRN PRN Reason: Constipation Melatonin (Melatonin 3 Mg Tablet) 6 mg PO BEDTIME PRN PRN Reason: Insomnia Melatonin (Melatonin 3 Mg Tablet) 6 mg PO BEDTIME PRN PRN Reason: Insomnia Ondansetron HCl (Ondansetron Hcl 4 Mg/2 Ml Vial) 4 mg IVPUSH Q8H PRN PRN Reason: Nausea and Vomiting Sacubitril/Valsartan (Sacubitril/Valsartan 49/51 1 Tab Tablet) 1 tab PO BID COUNTS INCLUDE 234 BEDS AT THE [facility]; Protocol Last Admin: 06/04/25 08:47 Dose: 1 tab Sodium Chloride (0.9 % Sodium Chloride Flush 3 Ml Syringe) [facility] Last Admin: 06/04/25 08:53 Dose: 3 ml Sodium Chloride (0.9 % Sodium Chloride Flush 3 Ml Syringe) 3 ml IVFLUSH [facility] Last Admin: 06/04/25 08:53 Dose: Not Given Spironolactone (Spironolactone 25 Mg Tablet) 25 mg PO DAILY COUNTS INCLUDE 234 BEDS AT THE [facility]; Protocol Last Admin: 06/04/25 08:47 Dose: 25 mg Home Medications ?Medication ?Instructions ?Recorded ?Confirmed ?Last Taken ?Type carvedilol 12.5 mg tablet 12.5 mg PO BID 06/03/2505/07 1 Week Ago History ~05/27/25 Physical Exam 2 Vital Signs: Vital Signs: Last Vital Signs Temp 98.7 F 06/04/25 08:00 Pulse 92 06/04/25 08:00 Resp 18 06/04/25 08:00 BP 126/65 06/04/25 08:00 Pulse Ox 94 06/04/25 08:00 O2 Del Method Room Air 06/04/25 08:00 BMI result Body Mass Index 30.2 Const: General: comfortable and no acute distress O rientation/consciousness: patient oriented x3 HEENT: Other: Unremarkable Head: Yes normal to inspection Neck: Neck: Yes normal visual inspection Chest: Chest palpation & inspection: normal inspection of the chest Resp: Auscultation: clear to auscultation bilaterally Cardio: Palpation: normal PMI Heart sounds: S1 normal heart sound present, S2 normal heart sound present, no gallops, no murmurs and no rubs GI: Palpation (GI): Soft to palpation Back/Spine/Pelvis: Other: unremarkable Skin: General skin exam: no rashes or lesions noted Neuro: General: patient oriented x3 Extrem: General: Yes normal to inspection Psych: Mental Status: mental status grossly normal Objective Labs and Meds 06/03/25 10:43 06/03/25 22:11 Lab results: Laboratory Results - last 24 hr 06/03/25 06/03/25 06/03/25 10:43 10:43 20:05 WBC 11.0 H RBC 4.85 Hgb 15.5 Hct 45.5 MCV 93.8 MCH 32.0 MCHC 34.1 RDW 13.2 Plt Count 188 MPV 11.1 Immature Gran % (Auto) 0.3 Neut % (Auto) 81.9 H Lymph % (Auto) 11.1 L Parke % (Auto) 4.7 Eos % (Auto) 1.5 Baso % (Auto) 0.5 Lymph # (Auto) 1.2 Parke # (Auto) 0.5 Eos # (Auto) 0.2 Baso # (Auto) 0.1 Abs Immat Gran (auto) 0.03 Absolute Neuts (auto) 9.0 H Absolute Nucleated RBC 0.000 Nucleated RBC % (auto) 0.0 Sodium 141 Potassium 4.3 Chloride 111 H Carbon Dioxide 23 Anion Gap 11 L BUN 13 Creatinine 0.82 Estim Creat Clear Calc 164.4 Estimated GFR > 60 Random Glucose 113 Calcium 8.7 Magnesium Total Bilirubin 1.4 H AST 23 ALT 14 Alkaline Phosphatase 77 Troponin I High Sens Cancelled 33.5 NT-Pro-B Natriuret Pep 3411.8 H Total Protein 6.7 Albumin 4.1 Urine Opiates Screen Not Detected Ur Buprenorphine Scrn Not Detected Ur Oxycodone Screen Not Detected Urine Methadone Screen Not Detected Urine Fentanyl Screen Not Detected Ur Barbiturates Screen Not Detected Ur Phencyclidine Scrn Not Detected Ur Amphetamines Screen Not Detected U Benzodiazepines Scrn Not Detected Urine Cocaine Screen Not Detected U Marijuana (THC) Screen Not Detected S. pyogenes GrpA AYAD Negative 06/03/25 22:11 WBC RBC Hgb Hct MCV MCH MCHC RDW Plt Count MPV Immature Gran % (Auto) Neut % (Auto) Lymph % (Auto) Parke % (Auto) Eos % (Auto) Baso % (Auto) Lymph # (Auto) Parke # (Auto) Eos # (Auto) Baso # (Auto) Abs Immat Gran (auto) Absolute Neuts (auto) Absolute Nucleated RBC Nucleated RBC % (auto) Sodium 138 Potassium 4.1 Chloride 105 Carbon Dioxide 25 Anion Gap 12 BUN 19 H Creatinine 1.04 Estim Creat Clear Calc 128.2 Estimated GFR > 60 Random Glucose 115 Calcium 8.7 Magnesium 1.6 Total Bilirubin AST ALT Alkaline Phosphatase Troponin I High Sens NT-Pro-B Natriuret Pep Total Protein Albumin Urine Opiates Screen Ur Buprenorphine Scrn Ur Oxycodone Screen Urine Methadone Screen Urine Fentanyl Screen Ur Barbiturates Screen Ur Phencyclidine Scrn Ur Amphetamines Screen U Benzodiazepines Scrn Urine Cocaine Screen U Marijuana (THC) Screen S. pyogenes GrpA AYAD ECG Interpretation: EKG with sinus tachycardia, 110/Min, left atrial enlargement; left ventricular hypertrophy; nonspecific ST-T changes. Imaging Radiologist's impression: Impressions Chest X-Ray 06/03/25 10:41 IMPRESSION: Left basilar atelectasis versus pneumonia. Cardiomegaly. Electronically signed by: Constantino Rivero MD 06/03/2025 10:54 AM EDT Assessment and Plan (1) Nonischemic cardiomyopathy: Status: Acute (2) Acute on chronic combined systolic and diastolic CHF (congestive heart failure): Status: Acute Plan In the current echocardiogram, LVEF is severely diminished at 8%. Last time, it was 10-15%. Overall, severely abnormal. Continue medications including carvedilol, Entresto, spironolactone and Jardiance. IV diuretics. Needs to abstain from drugs and alcohol. Overall, because of continued drug use as well as severe LV dysfunction, very high-risk of cardiac decompensation and . If indeed he can abstain from alcohol and drugs, we will need referral to advanced heart failure center. Procedures Date of Service Date of Service: 06/04/25
--- NOTE | 2025-06-04 10:43 | MHC.CM.PN ---
IMM 06/04/25, Pt. lives by himself, he does not have PCP, or use home health services or DME. He has transport home at [place], DCP: home, self care, CM to give pt. brochure for PCP. CM to follow for DC needs.
--- NOTE | 2025-06-04 13:01 | P.PNIM_ITS ---
Subjective Subjective Date of Service: 06/04/25 Interval History: Patient seen examined at bedside this morning, in no acute respiratory distress. Patient states that his breathing has improved, denies any other complaints at this time. Continues on IV Lasix for heart failure exacerbation. Review of Systems Review of Systems: Yes all other systems are reviewed and are negative Physical Exam 2 Exam: Exam: General: AxOx3, No acute distress Head: AT/NC ENT: Moist mucous membranes Neck: supple CVS; RRR, S1 S2 normal Lungs: Clear bilateral breath sounds, no wheezes or crackles Abd: Soft non tender, non distended Ext: No edema and no calf tenderness MSK: moving all 4 limbs Skin: No cyanosis or edema Psych: Cooperative with exam Neurology: no focal deficit Vital Signs: Vital Signs: Last Vital Signs Temp 97.4 F 06/04/25 12:00 Pulse 77 06/04/25 12:00 Resp 18 06/04/25 12:00 BP 96/45 L 06/04/25 12:00 Pulse Ox 97 06/04/25 12:00 O2 Del Method Room Air 06/04/25 12:00 BMI result Body Mass Index 30.2 Objective Data Active Medications Acetaminophen (Acetaminophen 325 Mg Tablet) 650 mg PO Q6H PRN PRN Reason: Pain, Mild 1-3,fever,headache Last Admin: 06/03/25 21:07 Dose: 650 mg Documented By: ELIZABET Benzocaine (Throat Lozenge, Medicated Lozenge) 1 lozenge MUCOUS MEM Q2H PRN PRN Reason: Sore Throat Last Admin: 06/03/25 21:01 Dose: 1 lozenge Documented By: ELIZABET Calcium Carbonate (Calcium Carbonate 750 Mg Tab.Chew) 750 mg PO Q4H PRN PRN Reason: Heartburn Carvedilol (Carvedilol 12.5 Mg Tablet) 12.5 mg PO BID [facility]; Protocol Last Admin: 06/04/25 08:46 Dose: 12.5 mg Documented By: WOODY Empagliflozin (Empagliflozin 10 Mg Tablet) 10 mg PO DAILY [facility] Last Admin: 06/04/25 08:47 Dose: 10 mg Documented By: WOODY Enoxaparin Sodium (Enoxaparin Sodium 40 Mg/0.4 Ml Syringe) 40 mg SUBCUT Q24H [facility] Last Admin: 06/03/25 13:21 Dose: Not Given Documented By: N-STANISLAW Non-Admin Reason: Patient Refused Comments: RN explained risks of refusal to pt, pt understands and still refusing medication. Furosemide (Furosemide 40 Mg/4 Ml Vial) 40 mg IVPUSH BID@0900,1800 [facility]; Protocol Last Admin: 06/04/25 08:46 Dose: 40 mg Documented By: WOODY Ibuprofen (Ibuprofen 400 Mg Tablet) 400 mg PO Q6H PRN PRN Reason: Pain, Severe (Pain Scale 7-10) Last Admin: 06/04/25 12:11 Dose: 400 mg Documented By: WOODY Magnesium Hydroxide (Milk Of Magnesia 30 Ml Oral.Susp) 30 ml PO DAILY PRN PRN Reason: Constipation Melatonin (Melatonin 3 Mg Tablet) 6 mg PO BEDTIME PRN PRN Reason: Insomnia Melatonin (Melatonin 3 Mg Tablet) 6 mg PO BEDTIME PRN PRN Reason: Insomnia Ondansetron HCl (Ondansetron Hcl 4 Mg/2 Ml Vial) 4 mg IVPUSH Q8H PRN PRN Reason: Nausea and Vomiting Sacubitril/Valsartan (Sacubitril/Valsartan 49/51 1 Tab Tablet) 1 tab PO BID [facility]; Protocol Last Admin: 06/04/25 08:47 Dose: 1 tab Documented By: WOODY Sodium Chloride (0.9 % Sodium Chloride Flush 3 Ml Syringe) [facility] Last Admin: 06/04/25 08:53 Dose: 3 ml Documented By: WOODY Sodium Chloride (0.9 % Sodium Chloride Flush 3 Ml Syringe) 3 ml IVFLUSH [facility] Last Admin: 06/04/25 08:53 Dose: Not Given Documented By: WOODY Non-Admin Reason: Duplicate Order Spironolactone (Spironolactone 25 Mg Tablet) 25 mg PO DAILY [facility]; Protocol Last Admin: 06/04/25 08:47 Dose: 25 mg Documented By: WOODY Labs 06/03/25 10:43 06/03/25 22:11 Labs: Laboratory Results - last 24 hr 06/03/25 06/03/25 20:05 22:11 Anion Gap 12 Estim Creat Clear Calc 128.2 Estimated GFR > 60 Random Glucose 115 Calcium 8.7 Magnesium 1.6 Urine Opiates Screen Not Detected Ur Buprenorphine Scrn Not Detected Ur Oxycodone Screen Not Detected Urine Methadone Screen Not Detected Urine Fentanyl Screen Not Detected Ur Barbiturates Screen Not Detected Ur Phencyclidine Scrn Not Detected Ur Amphetamines Screen Not Detected U Benzodiazepines Scrn Not Detected Urine Cocaine Screen Not Detected U Marijuana (THC) Screen Not Detected S. pyogenes GrpA AYAD Negative Assessment and Plan (1) Nonischemic cardiomyopathy: Status: Acute (2) Acute on chronic combined systolic and diastolic CHF (congestive heart failure): Status: Acute Plan 34-year-old man admitted with acute on chronic heart failure with a history of severe cardiomyopathy Acute on chronic heart failure with reduced ejection fraction with history of nonischemic cardiomyopathy secondary to cocaine and alcohol use Last echocardiogram with EF of 10-15% with severe global hypokinesis Cardiac catheterization in February of 2025 with normal systemic pressures, normal LVEDP and no significant coronary artery disease BNP 98631 IV Lasix 40 mg IV b.i.d. Continue carvedilol, Jardiance, Entresto, spironolactone Cardiology consulted Monitor on telemetry Daily weights Strict intake and output at this time with MAP less than 65, will give half dose of fluid bolus and recheck History of substance abuse and alcohol use. Patient reports last using alcohol drugs was 2 weeks ago Urine tox negative Tobacco use Patient reports that the has not used tobacco in over 2 weeks DVT prophylaxis with Lovenox Full code Quality Stroke Does the patient have a stroke diagnosis?: No VTE Prior VTE?: No VTE Risk Level:: Medical - moderate - high VTE Device Contraindication: Treatment Not Indicated VTE Drug Contraindication: N/A - Med Ordered
--- NOTE | 2025-06-04 17:48 | PC.NURSE ---
1200 BP noted to be low at 96/45 automated and confirmed manually with reading of 92/60, patient asymptomatic. Provider notified and 500mL saline bolus ordered. BP 30mins later: 98/54 and 1HR : 96/58. Provider ordered 2nd bolus of 500mL over 1 HR. subsequent BP was 92/60 . Provider ordered 5mg of midodrine once, which was administered to patient per OCT, patient remains asymptomatic. scheduled IV lasix held r/t hypotension. Provider aware .
[2025-06-04] MEDS: oxyCODONE HCl Immed Release 5 MG TABLET PO (20:09)
[2025-06-05] VITALS (8 sets, daily range): BP systolic 92–131; BP diastolic 54–60; PULSE 61–135; RESP 14–18; TEMP 36.6–36.8; O2SAT 94–98; BMI 30.3
[2025-06-05] MEDS: 0.9 % Sodium Chloride Flush 3 ML SYRINGE IVFLUSH ×2 (08:48→17:59)
[2025-06-05] MEDS: Furosemide 40 MG/4 ML VIAL IVPUSH ×2 (08:49→17:59)
[2025-06-05 09:01] LABS: Hematocrit 47.7 % (42.0-52.0); Hemoglobin 16.3 g/dl (14.0-18.0); Mean Corpuscular HGB Conc 34.2 g/dl (31.0-36.0); Mean Corpuscular Hemoglobin 32.4 pg (27.0-33.0); Mean Corpuscular Volume 94.8 fL (80.0-98.0); NRBC Abs Auto 0.000 X10*3/uL (0.0-0.012); NRBC Pct Auto 0.0 /100WBC (0.0-0.2); Platelet Count 214 X10*3/uL (160-400); Red Blood Count 5.03 X10*6/uL (4.60-5.80); White Blood Count 11.6 X10*3/uL (4.8-10.8)
[2025-06-05 09:17] LABS: Anion Gap 12 (12-20); Blood Urea Nitrogen 16 mg/dL (9-16); Calcium 8.6 mg/dL (8.4-10.2); Carbon Dioxide 26 mmol/L (22-29); Chloride 105 mmol/L (96-108); Creatinine Clr Calc Pharmacy 130.3; Estimated Glomerular Filt Rate > 60; Potassium 4.5 mmol/L (3.3-5.1); Sodium 138 mmol/L (135-145)
--- NOTE | 2025-06-05 13:44 | MHC.CM.PN ---
Per rounds, pt. is not ready to DC, he requires continued acute care for pneumonia, he is receiving IV ABX.
--- NOTE | 2025-06-05 13:50 | HO.PM.IMPN ---
Subjective Subjective Date of Service: 06/05/25 Interval History: Patient seen examined at bedside this morning, patient with leukocytosis, prior chest x-ray showed possible atelectasis or pneumonia. CT scan done yesterday showed bilateral multifocal pneumonia, yesterday patient was having episodes of hypotension. At this time states that he feels well and has improved. Review of Systems Review of Systems: Yes all other systems are reviewed and are negative Physical Exam Exam: Exam: General: AxOx3, No acute distress Head: AT/NC ENT: Moist mucous membranes Neck: supple CVS; RRR, S1 S2 normal Lungs: Clear bilateral breath sounds, no wheezes or crackles Abd: Soft non tender, non distended Ext: No edema and no calf tenderness MSK: moving all 4 limbs Skin: No cyanosis or edema Psych: Cooperative with exam Neurology: no focal deficit Vital Signs: Vital Signs: Last Vital Signs Temp 97.8 F 06/05/25 11:38 Pulse 65 06/05/25 11:38 Resp 18 06/05/25 11:38 BP 108/54 L 06/05/25 11:38 Pulse Ox 95 06/05/25 11:38 O2 Del Method Room Air 06/05/25 11:38 BMI result Body Mass Index 30.3 Objective Data Active Medications Acetaminophen (Acetaminophen 325 Mg Tablet) 650 mg PO Q6H PRN PRN Reason: Pain, Mild 1-3,fever,headache Last Admin: 06/03/25 21:07 Dose: 650 mg Documented By: ELIZABET Benzocaine (Throat Lozenge, Medicated Lozenge) 1 lozenge MUCOUS MEM Q2H PRN PRN Reason: Sore Throat Last Admin: 06/03/25 21:01 Dose: 1 lozenge Documented By: ELIZABET Calcium Carbonate (Calcium Carbonate 750 Mg Tab.Chew) 750 mg PO Q4H PRN PRN Reason: Heartburn Carvedilol (Carvedilol 12.5 Mg Tablet) 12.5 mg PO BID [facility]; Protocol On Hold: 06/04/25 14:53 Last Admin: 06/04/25 08:46 Dose: 12.5 mg Documented By: WOODY Empagliflozin (Empagliflozin 10 Mg Tablet) 10 mg PO DAILY [facility] On Hold: 06/04/25 14:53 Last Admin: 06/04/25 08:47 Dose: 10 mg Documented By: WOODY Enoxaparin Sodium (Enoxaparin Sodium 40 Mg/0.4 Ml Syringe) 40 mg SUBCUT Q24H [facility] Last Admin: 06/04/25 16:33 Dose: Not Given Documented By: WOODY Non-Admin Reason: Patient Refused Furosemide (Furosemide 40 Mg/4 Ml Vial) 40 mg IVPUSH BID@0900,1800 [facility]; Protocol Last Admin: 06/05/25 08:49 Dose: 40 mg Documented By: LIZBETH Azithromycin 500 mg/ Sodium (Chloride) 250 mls @ 125 mls/hr IV Q24H [facility] Stop: 06/08/25 07:59 Last Infusion: 06/05/25 10:49 Dose: Infused Documented By: LIZBETH Ceftriaxone Sodium 2 gm/ (Sodium Chloride) 50 mls @ 100 mls/hr IV Q24H [facility] Last Infusion: 06/05/25 11:36 Dose: Infused Documented By: LIZBETH Ibuprofen (Ibuprofen 400 Mg Tablet) 400 mg PO Q6H PRN PRN Reason: Pain, Severe (Pain Scale 7-10) Last Admin: 06/05/25 08:57 Dose: 400 mg Documented By: LIZBETH Magnesium Hydroxide (Milk Of Magnesia 30 Ml Oral.Susp) 30 ml PO DAILY PRN PRN Reason: Constipation Melatonin (Melatonin 3 Mg Tablet) 6 mg PO BEDTIME PRN PRN Reason: Insomnia Melatonin (Melatonin 3 Mg Tablet) 6 mg PO BEDTIME PRN PRN Reason: Insomnia Midodrine (Midodrine Hcl 10 Mg Tablet) 10 mg PO Q8H [facility] Last Admin: 06/05/25 08:48 Dose: 10 mg Documented By: LIZBETH Ondansetron HCl (Ondansetron Hcl 4 Mg/2 Ml Vial) 4 mg IVPUSH Q8H PRN PRN Reason: Nausea and Vomiting Sacubitril/Valsartan (Sacubitril/Valsartan 49/51 1 Tab Tablet) 1 tab PO BID [facility]; Protocol On Hold: 06/04/25 14:53 Last Admin: 06/04/25 08:47 Dose: 1 tab Documented By: WOODY Sodium Chloride (0.9 % Sodium Chloride Flush 3 Ml Syringe) 3 ml IVFLUSH QSHIFT [facility] Last Admin: 06/05/25 08:48 Dose: 3 ml Documented By: LIZBETH Sodium Chloride (0.9 % Sodium Chloride Flush 3 Ml Syringe) 3 ml IVFLUSH QSHIFT [facility] Last Admin: 06/05/25 08:50 Dose: Not Given Documented By: LIZBETH Non-Admin Reason: Previously Administered Spironolactone (Spironolactone 25 Mg Tablet) 25 mg PO DAILY [facility]; Protocol On Hold: 06/04/25 14:53 Last Admin: 06/04/25 08:47 Dose: 25 mg Documented By: MARIA VICTORIATEKR Labs 06/05/25 08:47 06/05/25 08:47 Labs: Laboratory Results - last 24 hr 06/05/25 08:47 MCV 94.8 MCH 32.4 MCHC 34.2 RDW 13.2 Plt Count 214 MPV 10.9 Absolute Nucleated RBC 0.000 Nucleated RBC % (auto) 0.0 Anion Gap 12 Estim Creat Clear Calc 130.3 Estimated GFR > 60 Random Glucose 98 Calcium 8.6 Assessment and Plan (1) Nonischemic cardiomyopathy: Status: Acute (2) Acute on chronic combined systolic and diastolic CHF (congestive heart failure): Status: Acute (3) Pneumonia: Status: Acute Plan 34-year-old man admitted with acute on chronic heart failure with a history of severe cardiomyopathy. patient with leukocytosis on admission, with xray showing possible pna. on 06/04 having episodes of hypotension. Chest CT positive for multifocal pneumonia Multifocal PNA -chest ct reviewed -respiratory panel ordered -Will inititiate ceftriaxone and azithromycin -monitor for hypoxia, chest pain -given Severe HF, unable to give full doses of IV fluids Acute on Chronic heart failure with reduced ejection fraction with history of nonischemic cardiomyopathy secondary to cocaine and alcohol use Last echocardiogram with EF of 10-15% with severe global hypokinesis Cardiac catheterization in February of 2025 with normal systemic pressures, normal LVEDP and no significant coronary artery disease BNP [id number] IV Lasix 40 mg IV b.i.d. HOLD BP carvedilol, Jardiance, Entresto, spironolactone due to hypotension. Cardiology consulted Monitor on telemetry Daily weights Strict intake and output continue midodrine PRN History of substance abuse and alcohol use. Patient reports last using alcohol drugs was 2 weeks ago Urine tox negative Tobacco use Patient reports that the has not used tobacco in over 2 weeks DVT prophylaxis with Lovenox Full code Quality Stroke Does the patient have a stroke diagnosis?: No VTE Prior VTE?: No VTE Risk Level:: Medical - moderate - high VTE Device Contraindication: Treatment Not Indicated VTE Drug Contraindication: N/A - Med Ordered
[2025-06-05] MEDS: oxyCODONE HCl Immed Release 5 MG TABLET PO (16:16)
[2025-06-06] MEDS: 0.9 % Sodium Chloride Flush 3 ML SYRINGE IVFLUSH ×4 (00:49→22:00)
[2025-06-06 03:03] VITALS: BP 117/60; PULSE 71; RESP 18; TEMP 36.4; O2SAT 96
[2025-06-06 08:00] VITALS: BP 118/72; PULSE 102; RESP 18; TEMP 35.2; O2SAT 98
[2025-06-06] MEDS: Furosemide 40 MG/4 ML VIAL IVPUSH (08:37)
[2025-06-06] MEDS: oxyCODONE HCl Immed Release 5 MG TABLET PO ×2 (08:46→22:03)
[2025-06-06 09:49] LABS: Anion Gap 15 (12-20); Blood Urea Nitrogen 17 mg/dL (9-16); Calcium 8.9 mg/dL (8.4-10.2); Carbon Dioxide 26 mmol/L (22-29); Chloride 103 mmol/L (96-108); Creatinine Clr Calc Pharmacy 124.3; Estimated Glomerular Filt Rate > 60; Magnesium 2.1 mg/dL (1.6-2.6); Potassium 4.5 mmol/L (3.3-5.1); Sodium 139 mmol/L (135-145)
[2025-06-06 09:51] LABS: NT Pro B Type Natriuretic Pept 958.6 pg/mL (<300)
--- NOTE | 2025-06-06 09:55 | PM.PNCARD ---
Subjective Subjective Date of Service: 06/06/25 Interval history: Seen and examined patient. He states that he is feeling better. According to him, he has not taken any medications for 2 weeks. He blames on the fact that he thought his blood pressure might be erratic after he stopped using cocaine/alcohol and he lost that 2 weeks back. He states that he is feeling better since getting admitted. Review of Systems Review of Systems Yes all other systems are reviewed and are negative Constitutional: Reports as per HPI and Reports no additional constitutional complaints Eyes: Reports as per HPI and Denies no additional eye complaints Denies system reviewed and no additional complaints, except as documented and Reports as per HPI Cardiovascular: Reports as per HPI, Reports no additional cardiovascular complaints, Denies acrocyanosis, Denies cool extremities, Denies chest pain, Denies leg edema, Denies lightheadedness, Denies palpitations and Denies dyspnea Respiratory: Reports as per HPI, Denies no additional respiratory complaints and Denies dyspnea Gastrointestinal: Reports as per HPI and Denies no additional gastrointestinal complaints Genitourinary: Reports no additional male genitourinary complaints and Reports as per HPI Musculoskeletal: Reports no additional musculoskeletal complaints and Reports as per HPI Skin/Breast: Reports system reviewed and no additional complaints, except as docu Reports system reviewed and no additional complaints, except as documented and Reports as per HPI Psychiatric: Reports no additional psychiatric complaints and Reports as per HPI Endocrine: Reports no additional endocrine complaints, Reports as per HPI and Denies palpitations Hematologic/Lymphatic: Reports no additional hematologic/lymphatic complaints and Reports as per HPI Allergic/Immunologic: Reports no additional allergic/immunologic complaints and Reports as per HPI Physical Exam Vital Signs: Last Vital Signs Temp 95.3 F L 06/06/25 08:00 Pulse 102 H 06/06/25 08:00 Resp 18 06/06/25 08:00 BP 118/72 06/06/25 08:00 Pulse Ox 98 06/06/25 08:00 O2 Del Method Room Air 06/06/25 08:00 BMI result Body Mass Index 30.3 Const General: comfortable and no acute distress Orientation/consciousness: patient oriented x3 HEENT Other: Unremarkable Head: Yes normal to inspection Neck Neck: Yes normal visual inspection Chest Chest palpation & inspection: normal inspection of the chest Resp Auscultation: clear to auscultation bilaterally Cardio Palpation: normal PMI Heart sounds: S1 normal heart sound present, S2 normal heart sound present, no gallops, no murmurs and no rubs GI Palpation (GI): Soft to palpation Back/Spine/Pelvis Other: unremarkable Skin General skin exam: no rashes or lesions noted Neuro General: patient oriented x3 Extrem General: Yes normal to inspection Psych Mental Status: mental status grossly normal Objective Labs and Meds 06/05/25 08:47 06/06/25 09:20 Lab results: Laboratory Results - last 24 hr 06/06/25 06/06/25 09:19 09:20 Sodium 139 Potassium 4.5 Chloride 103 Carbon Dioxide 26 Anion Gap 15 BUN 17 H Creatinine 1.07 Estim Creat Clear Calc 124.3 Estimated GFR > 60 Random Glucose 188 H Calcium 8.9 Magnesium 2.1 NT-Pro-B Natriuret Pep 958.6 H Progress Note: A&P Assessment and plan (1) Nonischemic cardiomyopathy: Status: Acute (2) Acute on chronic combined systolic and diastolic CHF (congestive heart failure): Status: Acute Plan In the current echocardiogram, LVEF is severely diminished at 8%. Last time, it was 10-15%. Overall, severely abnormal. He was supposed to be on carvedilol, Entresto, spironolactone and Jardiance. However, does not seem to be getting them as blood pressure is lowish. May resume at least one medication at a time like Entresto or carvedilol at a small dose and then uptitrated accordingly. It seems that he also got some midodrine. Overall, severe LV dysfunction, continued drug use, alcohol use, some noncompliance, questionable insight. High-risk of decompensation and . Time Spent With Patient Time: Total time managing care of this patient today ____ minutes. Progress Note: Quality Stroke Does the patient have a stroke diagnosis?: No Procedures Date of Service Date of Service: 06/06/25
[2025-06-06 10:00] LABS: HBS Num1 2.63 mIU/mL (0-7.99); HBc Num1 0.05 S/CO (0.00-0.79); HBsAGNum1 0.39 S/CO (0.00-0.99); HIV Num 1 0.06 S/CO (0.00-0.99); Hepatitis B Surface Antigen Negative (Negative); ~HepC Num1 0.08 S/CO (0.00-0.79); ~Hepatitis B Surface Antibody NONREACTIVE (Nonreactive); ~Hepatitis C Antibody Nonreactive (Nonreactive)
[2025-06-06 10:04] LABS: Procalcitonin 0.05 ng/mL
[2025-06-06 11:18] VITALS: BP 118/68; PULSE 114; RESP 18; TEMP 36.4; O2SAT 98
[2025-06-06 15:24] LABS: MRSA Nasal PCR NEGATIVE (Negative); SA Nasal PCR POSITIVE (Negative)
[2025-06-06 16:00] VITALS: BP 122/68; PULSE 95; RESP 18; TEMP 35.9; O2SAT 96
--- NOTE | 2025-06-06 16:20 | HO.PM.IMPN ---
Subjective Subjective Date of Service: 06/06/25 Interval History: BP improving cough improving no dyspnea or chest pain Review of Systems Review of Systems: Yes all other systems are reviewed and are negative Physical Exam Vital Signs: Vital Signs: Last Vital Signs Temp 96.6 F L 06/06/25 16:00 Pulse 95 06/06/25 16:00 Resp 18 06/06/25 16:00 BP 122/68 06/06/25 16:00 Pulse Ox 96 06/06/25 16:00 O2 Del Method Room Air 06/06/25 16:00 BMI result Body Mass Index 30.3 Gen: in no acute distress HEENT: sclera anicteric, moist mucus membranes Neck: supple Lungs: diminished bilaterally Heart: regular rate and rhythm, no murmurs Abd: soft, non-tender, non-distended Ext: no edema Skin: warm/well-perfused Neuro: alert and oriented x3, no focal findings Psych: appropriate affect Objective Data Active Medications Acetaminophen (Acetaminophen 325 Mg Tablet) 650 mg PO Q6H PRN PRN Reason: Pain, Mild 1-3,fever,headache Last Admin: 06/03/25 21:07 Dose: 650 mg Documented By: ELIZABET Benzocaine (Throat Lozenge, Medicated Lozenge) 1 lozenge MUCOUS MEM Q2H PRN PRN Reason: Sore Throat Last Admin: 06/03/25 21:01 Dose: 1 lozenge Documented By: ELIZABET Calcium Carbonate (Calcium Carbonate 750 Mg Tab.Chew) 750 mg PO Q4H PRN PRN Reason: Heartburn Carvedilol (Carvedilol 3.125 Mg Tablet) 3.125 mg PO BID [facility]; Protocol Empagliflozin (Empagliflozin 10 Mg Tablet) 10 mg PO DAILY [facility] On Hold: 06/04/25 14:53 Last Admin: 06/04/25 08:47 Dose: 10 mg Documented By: WOODY Enoxaparin Sodium (Enoxaparin Sodium 40 Mg/0.4 Ml Syringe) 40 mg SUBCUT Q24H [facility] Last Admin: 06/06/25 13:41 Dose: Not Given Documented By: LUCY Non-Admin Reason: Patient Refused Furosemide (Furosemide 40 Mg Tablet) 40 mg PO BID@0900,1800 [facility]; Protocol Azithromycin 500 mg/ Sodium (Chloride) 250 mls @ 125 mls/hr IV Q24H [facility] Stop: 06/08/25 07:59 Last Infusion: 06/06/25 11:26 Dose: Infused Documented By: LUCY Ceftriaxone Sodium 2 gm/ (Sodium Chloride) 50 mls @ 100 mls/hr IV Q24H [facility] Last Infusion: 06/06/25 10:18 Dose: Infused Documented By: LUCY Ibuprofen (Ibuprofen 400 Mg Tablet) 400 mg PO Q6H PRN PRN Reason: Pain, Severe (Pain Scale 7-10) Last Admin: 06/05/25 08:57 Dose: 400 mg Documented By: LIZBETH Magnesium Hydroxide (Milk Of Magnesia 30 Ml Oral.Susp) 30 ml PO DAILY PRN PRN Reason: Constipation Melatonin (Melatonin 3 Mg Tablet) 6 mg PO BEDTIME PRN PRN Reason: Insomnia Melatonin (Melatonin 3 Mg Tablet) 6 mg PO BEDTIME PRN PRN Reason: Insomnia Ondansetron HCl (Ondansetron Hcl 4 Mg/2 Ml Vial) 4 mg IVPUSH Q8H PRN PRN Reason: Nausea and Vomiting Oxycodone HCl (Oxycodone Hcl Immed Release 5 Mg Tablet) 5 mg PO Q6H PRN PRN Reason: Pain, Severe (Pain Scale 7-10) Last Admin: 06/06/25 08:46 Dose: 5 mg Documented By: LUCY Sacubitril/Valsartan (Sacubitril/Valsartan 49/51 1 Tab Tablet) 1 tab PO BID [facility]; Protocol On Hold: 06/04/25 14:53 Last Admin: 06/04/25 08:47 Dose: 1 tab Documented By: WOODY Sodium Chloride (0.9 % Sodium Chloride Flush 3 Ml Syringe) 3 ml IVFLUSH [facility] Last Admin: 06/06/25 08:38 Dose: 3 ml Documented By: LUCY Sodium Chloride (0.9 % Sodium Chloride Flush 3 Ml Syringe) 3 ml IVFLUSH [facility] Last Admin: 06/06/25 08:38 Dose: Not Given Documented By: LUCY Non-Admin Reason: Duplicate Order Spironolactone (Spironolactone 25 Mg Tablet) 25 mg PO DAILY [facility]; Protocol On Hold: 06/04/25 14:53 Last Admin: 06/04/25 08:47 Dose: 25 mg Documented By: WOODY Labs 06/05/25 08:47 06/06/25 09:20 Labs: Laboratory Results - last 24 hr 06/06/25 06/06/25 06/06/25 09:19 09:20 14:00 Anion Gap 15 Estim Creat Clear Calc 124.3 Estimated GFR > 60 Random Glucose 188 H Calcium 8.9 Magnesium 2.1 NT-Pro-B Natriuret Pep 958.6 H Procalcitonin 0.05 Nasal Screen MRSA (PCR) NEGATIVE Nasal S. aureus Screen POSITIVE A Nasal MRSA/S.aureus Interp SEE NOTE Hep Bs Antigen Negative Hep Bs Antibody NONREACTIVE Hep B Core Total Ab Nonreactive Hepatitis C Ab (EIA) Nonreactive HIV 1&2 Ab/P24 Ag 4thGn Nonreactive Assessment and Plan (1) Nonischemic cardiomyopathy: Status: Acute (2) Acute on chronic combined systolic and diastolic CHF (congestive heart failure): Status: Acute (3) Pneumonia: Status: Acute Plan d4, 34yo M with sever cardiomyopathy admitted for ADHF and also found to have multifocal PNA multifocal PNA with bilateral pleural effusions and mediastinal/axilllary lymphadenopathy - ceftriaxone + azithromycin 06/05-, MRSA neg, urinary antigens for Legionella and pneumococcus pending - not hypoxic - repeat CT chest in 3-4 wk acute-chronic HFrEF NICM, likely due to cocaine/EtOH - prior echocardiogram with EF of 10-15% with severe global hypokinesis; now EF 8%; cardiac catheterization in February of 2025 with normal systemic pressures, normal LVEDP and no significant coronary artery disease - change IV to PO furosemide - hypotension resolved; d/c midodrine; try to add back neurohormonal modulation step by step- will start with carvedilol [holding Entresto, spironolactone, empagliflozin], Cardiology following substance abuse - HBV/HCV/HIV screen negative, last use 2 wk ago VTE ppx: enoxaparin dispo: eventual home In my clinical judgment, the patient requires continued inpatient hospitalization for the following reasons: hypotension Total time managing care of this patient today: 35 minutes. Quality Stroke Does the patient have a stroke diagnosis?: No VTE Prior VTE?: No VTE Risk Level:: Medical - moderate - high VTE Device Contraindication: Treatment Not Indicated VTE Drug Contraindication: N/A - Med Ordered
[2025-06-06 19:15] VITALS: BP 125/65; PULSE 50; RESP 19; TEMP 36.3; O2SAT 97
[2025-06-06 23:02] VITALS: BP 100/75; PULSE 83; RESP 18; TEMP 36.9; O2SAT 96
[2025-06-07 03:07] VITALS: BP 100/75; PULSE 75; RESP 18; TEMP 36.4; O2SAT 97
[2025-06-07 04:41] VITALS: BMI 30.1
[2025-06-07 08:00] VITALS: BP 136/82; PULSE 94; RESP 18; TEMP 36.1; O2SAT 100
[2025-06-07] MEDS: 0.9 % Sodium Chloride Flush 3 ML SYRINGE IVFLUSH (08:37)
[2025-06-07] MEDS: oxyCODONE HCl Immed Release 5 MG TABLET PO (08:37)
[2025-06-07 10:29] LABS: Anion Gap 13 (12-20); Blood Urea Nitrogen 15 mg/dL (9-16); Calcium 8.5 mg/dL (8.4-10.2); Carbon Dioxide 25 mmol/L (22-29); Chloride 106 mmol/L (96-108); Creatinine Clr Calc Pharmacy 133.9; Estimated Glomerular Filt Rate > 60; Magnesium 2.0 mg/dL (1.6-2.6); Potassium 4.5 mmol/L (3.3-5.1); Sodium 139 mmol/L (135-145)
[2025-06-07 10:33] LABS: NT Pro B Type Natriuretic Pept 946.5 pg/mL (<300)
--- NOTE | 2025-06-07 11:04 | PM.PNCARD ---
Subjective Subjective Date of Service: 06/07/25 Interval history: He states that he is feeling better. Shortness of breath is much better. Review of Systems Review of Systems Yes all other systems are reviewed and are negative Constitutional: Reports as per HPI and Reports no additional constitutional complaints Eyes: Reports as per HPI and Denies no additional eye complaints Denies system reviewed and no additional complaints, except as documented and Reports as per HPI Cardiovascular: Reports as per HPI, Reports no additional cardiovascular complaints, Denies acrocyanosis, Denies cool extremities, Denies chest pain, Denies leg edema, Denies lightheadedness, Denies palpitations and Denies dyspnea Respiratory: Reports as per HPI, Denies no additional respiratory complaints and Denies dyspnea Gastrointestinal: Reports as per HPI and Denies no additional gastrointestinal complaints Genitourinary: Reports no additional male genitourinary complaints and Reports as per HPI Musculoskeletal: Reports no additional musculoskeletal complaints and Reports as per HPI Skin/Breast: Reports system reviewed and no additional complaints, except as docu Reports system reviewed and no additional complaints, except as documented and Reports as per HPI Psychiatric: Reports no additional psychiatric complaints and Reports as per HPI Endocrine: Reports no additional endocrine complaints, Reports as per HPI and Denies palpitations Hematologic/Lymphatic: Reports no additional hematologic/lymphatic complaints and Reports as per HPI Allergic/Immunologic: Reports no additional allergic/immunologic complaints and Reports as per HPI Physical Exam Vital Signs: Last Vital Signs Temp 97 F 06/07/25 08:00 Pulse 94 06/07/25 08:00 Resp 18 06/07/25 08:00 BP 136/82 06/07/25 08:00 Pulse Ox 100 06/07/25 08:00 O2 Del Method Room Air 06/07/25 08:00 BMI result Body Mass Index 30.1 Const General: comfortable and no acute distress Orientation/consciousness: patient oriented x3 HEENT Other: Unremarkable Head: Yes normal to inspection Neck Neck: Yes normal visual inspection Chest Chest palpation & inspection: normal inspection of the chest Resp Auscultation: clear to auscultation bilaterally Cardio Palpation: normal PMI Heart sounds: S1 normal heart sound present, S2 normal heart sound present, no gallops, no murmurs and no rubs GI Palpation (GI): Soft to palpation Back/Spine/Pelvis Other: unremarkable Skin General skin exam: no rashes or lesions noted Neuro General: patient oriented x3 Extrem General: Yes normal to inspection Psych Mental Status: mental status grossly normal Objective Labs and Meds 06/05/25 08:47 06/07/25 09:37 Lab results: Laboratory Results - last 24 hr 06/06/25 06/07/25 14:00 09:37 Sodium 139 Potassium 4.5 Chloride 106 Carbon Dioxide 25 Anion Gap 13 BUN 15 Creatinine 0.99 Estim Creat Clear Calc 133.9 Estimated GFR > 60 Random Glucose 168 H Calcium 8.5 Magnesium 2.0 NT-Pro-B Natriuret Pep 946.5 H Nasal Screen MRSA (PCR) NEGATIVE Nasal S. aureus Screen POSITIVE A Nasal MRSA/S.aureus Interp SEE NOTE Progress Note: A&P Assessment and plan (1) Nonischemic cardiomyopathy: Status: Acute (2) Acute on chronic combined systolic and diastolic CHF (congestive heart failure): Status: Acute Plan In the current echocardiogram, LVEF is severely diminished at 8%. Last time, it was 10-15%. Overall, severely abnormal. He was supposed to be on carvedilol, Entresto, spironolactone and Jardiance but did not take them for 2 weeks or so as there was some confusion with this. He has now resumed back on the medications. There was initially some blood pressure issue but seems better now. He did get a dose of midodrine but not on it anymore. We can optimize at least a basic regimen before he gets discharged and we will arrange follow up in clinic. Ideally should stay off cocaine and alcohol and we discussed that multiple times during this hospitalization including today. Due to very poor LVEF, high-risk of decompensation and . If he stays off drugs, then can refer to [facility] center for further care. We will also need EP evaluation for ICD. But will need to be abstinent from drugs and alcohol abuse before these. Time Spent With Patient Time: Total time managing care of this patient today ____ minutes. Progress Note: Quality Stroke Does the patient have a stroke diagnosis?: No Procedures Date of Service Date of Service: 06/07/25
--- NOTE | 2025-06-07 12:25 | PM.DS ---
DS: Providers Provider Date of Service: 06/07/25 Date of admission: 06/03/25 13:06 Date of discharge: 06/07/25 Primary care physician: None Physician Consults: 06/03/25 12:48 Consult to Cardiology Routine Consulting Provider[place] [facility] Reason for consultation: chf DS: Diagnosis Discharge Diagnosis (1) Nonischemic cardiomyopathy: Status: Acute (2) Acute on chronic combined systolic and diastolic CHF (congestive heart failure): Status: Acute (3) Pneumonia: Status: Acute (4) Mediastinal lymphadenopathy: Status: Acute DS: Summary Hospital Course Hospital Course: From the history and physical by the admitting hospitalist, ALVERTO Ayala, 06/03/25: 34 year old man presenting with shortness of breath over the last several days. He has a history of severe cardiomyopathy. He reported he stopped taking his medications about 2 weeks ago along with tobacco and drugs because he was told by his technical stenographer. He reported midsternal chest pain but thought that it might be related to the dry cough that he has. He reported a dry cough corner along with the shortness of breath. He denied fever, chills, nausea, vomiting, diarrhea. Chest x-ray in the ER showed left basilar atelectasis versus pneumonia with cardiomegaly. BNP noted to be 3411. In the ER he was given a dose of IV Lasix. He will be admitted for further management and treatment of acute on chronic congestive heart failure. 34yo M with severe cardiomyopathy admitted for ADHF and also found to have multifocal PNA. Hospital course by problem: multifocal PNA with bilateral pleural effusions and mediastinal/axilllary lymphadenopathy - Treated with ceftriaxone + azithromycin 06/05-06/07. MRSA neg, urinary antigens for Legionella and pneumococcus pending at the time of discharge. Symptoms improved quickly and he was never hypoxic nor septic. He was discharged on cefuroxime and azithromycin for 3 more days and will require repeat CT of the chest in 1 month follow up with infiltrates and adenopathy acute-chronic HFrEF NICM, likely due to cocaine/EtOH - Prior echocardiogram with EF of 10-15% with severe global hypokinesis; now EF 8%; cardiac catheterization in February of 2025 with normal systemic pressures, normal LVEDP and no significant coronary artery disease. Diuresed with IV furosemide than changed to PO furosemide 40 mg bid. At the onset of pneumonia, had some hypotension, for which neurohormonal modulatory drugs were held. Hypotension resolved and he was started on low doses of Entresto, carvedilol, spironolactone, and empagliflozin. He will need close follow-up with [facility] [place] [place] [facility] including referral to advanced heart failure therapy clinic and evaluation AICD. The importance of abstinence from alcohol and drugs were counseled. substance abuse - HBV/HCV/HIV screen negative, last use 2 wk prior to admission; abstinence counseled. Time Attestation Discharge Coordination Time (in mins): 35 Quality: Safe Use of Opioids Does Pt have an Active Cancer Diagnosis on the Problem List?: No Quality: Stroke Does the patient have a stroke diagnosis?: No Physical Exam Vital Signs: Vital Signs: Last Vital Signs Temp 97 F 06/07/25 08:00 Pulse 94 06/07/25 08:00 Resp 18 06/07/25 08:00 BP 136/82 06/07/25 08:00 Pulse Ox 100 06/07/25 08:00 O2 Del Method Room Air 06/07/25 08:00 BMI result Body Mass Index 30.1 Gen: in no acute distress HEENT: sclera anicteric, moist mucus membranes Neck: supple Lungs: clear to auscultation bilaterally Heart: regular rate and rhythm, no murmurs Abd: soft, non-tender, non-distended Ext: no edema Skin: warm/well-perfused Neuro: alert and oriented x3, no focal findings Psych: appropriate affect DS: Data Data Completed and Pending Completed studies during hospitalization [Text1]: Laboratory Results WBC 11.6 X10*3/uL (4.8-10.8) H 06/05/25 08:47 RBC 5.03 X10*6/uL (4.60-5.80) 06/05/25 08:47 Hgb 16.3 g/dl (14.0-18.0) 06/05/25 08:47 Hct 47.7 % (42.0-52.0) 06/05/25 08:47 MCV 94.8 fL (80.0-98.0) 06/05/25 08:47 MCH 32.4 pg (27.0-33.0) 06/05/25 08:47 MCHC 34.2 g/dl (31.0-36.0) 06/05/25 08:47 RDW 13.2 % (11.0-16.0) 06/05/25 08:47 Plt Count 214 X10*3/uL (160-400) 06/05/25 08:47 MPV 10.9 fL (9.4-12.4) 06/05/25 08:47 Immature Gran % (Auto) 0.3 % (0.0-0.4) 06/03/25 10:43 Neut % (Auto) 81.9 % (45-73) H 06/03/25 10:43 Lymph % (Auto) 11.1 % (20-40) L 06/03/25 10:43 Baca % (Auto) 4.7 % (2-11) 06/03/25 10:43 Eos % (Auto) 1.5 % (0-4) 06/03/25 10:43 Baso % (Auto) 0.5 % (0-2) 06/03/25 10:43 Lymph # (Auto) 1.2 X10*3/uL (1.2-4.9) 06/03/25 10:43 Baca # (Auto) 0.5 X10*3/uL (0.1-1.2) 06/03/25 10:43 Eos # (Auto) 0.2 X10*3/uL (0.0-0.4) 06/03/25 10:43 Baso # (Auto) 0.1 X10*3/uL (0.0-0.2) 06/03/25 10:43 Abs Immat Gran (auto) 0.03 X10*3/uL (0.00-0.03) 06/03/25 10:43 Absolute Neuts (auto) 9.0 x10*3/uL (2.0-8.3) H 06/03/25 10:43 Absolute Nucleated RBC 0.000 X10*3/uL (0.0-0.012) 06/05/25 08:47 Nucleated RBC % (auto) 0.0 /100WBC (0.0-0.2) 06/05/25 08:47 Sodium 139 mmol/L (135-145) 06/07/25 09:37 Potassium 4.5 mmol/L (3.3-5.1) 06/07/25 09:37 Chloride 106 mmol/L (96-108) 06/07/25 09:37 Carbon Dioxide 25 mmol/L (22-29) 06/07/25 09:37 Anion Gap 13 (12-20) 06/07/25 09:37 BUN 15 mg/dL (9-16) 06/07/25 09:37 Creatinine 0.99 mg/dL (0.5-1.4) 06/07/25 09:37 Estim Creat Clear Calc 133.9 06/07/25 09:37 Estimated GFR > 60 06/07/25 09:37 Random Glucose 168 mg/dL (60-115) H 06/07/25 09:37 Calcium 8.5 mg/dL (8.4-10.2) 06/07/25 09:37 Magnesium 2.0 mg/dL (1.6-2.6) 06/07/25 09:37 Total Bilirubin 1.4 mg/dL (0.0-1.0) H 06/03/25 10:43 AST 23 U/L (5-37) 06/03/25 10:43 ALT 14 U/L (0-40) 06/03/25 10:43 Alkaline Phosphatase 77 U/L (39-117) 06/03/25 10:43 Troponin I High Sens 33.5 ng/L (<3.5-35.0) 06/03/25 10:43 Troponin I High Sens Cancelled 06/03/25 10:43 NT-Pro-B Natriuret Pep 946.5 pg/mL (<300) H 06/07/25 09:37 Total Protein 6.7 g/dL (6.5-8.0) 06/03/25 10:43 Albumin 4.1 g/dL (3.5-5.0) 06/03/25 10:43 Procalcitonin 0.05 ng/mL 06/06/25 09:20 Nasal Screen MRSA (PCR) NEGATIVE (Negative) 06/06/25 14:00 Nasal S. aureus Screen POSITIVE (Negative) A 06/06/25 14:00 Nasal MRSA/S.aureus Interp SEE NOTE 06/06/25 14:00 Urine Opiates Screen Not Detected (Not Detect) 06/03/25 20:05 Ur Buprenorphine Scrn Not Detected ng/mL (Not Detect) 06/03/25 20:05 Ur Oxycodone Screen Not Detected ng/mL (Not Detect) 06/03/25 20:05 Urine Methadone Screen Not Detected ng/mL (Not Detect) 06/03/25 20:05 Urine Fentanyl Screen Not Detected (Not Detect) 06/03/25 20:05 Ur Barbiturates Screen Not Detected (Not Detect) 06/03/25 20:05 Ur Phencyclidine Scrn Not Detected (Not Detect) 06/03/25 20:05 Ur Amphetamines Screen Not Detected (Not Detect) 06/03/25 20:05 U Benzodiazepines Scrn Not Detected (Not Detect) 06/03/25 20:05 Urine Cocaine Screen Not Detected (Not Detect) 06/03/25 20:05 U Marijuana (THC) Screen Not Detected (Not Detect) 06/03/25 20:05 Hep Bs Antigen Negative (Negative) 06/06/25 09:19 Hep Bs Antibody NONREACTIVE (Nonreactive) 06/06/25 09:19 Hep B Core Total Ab Nonreactive (Nonreactive) 06/06/25 09:19 Hepatitis C Ab (EIA) Nonreactive (Nonreactive) 06/06/25 09:19 HIV 1&2 Ab/P24 Ag 4thGn Nonreactive (Nonreactive) 06/06/25 09:19 S. pyogenes GrpA AYAD Negative (Negative) 06/03/25 20:05 Impressions Chest X-Ray 06/03/25 10:41 IMPRESSION: Left basilar atelectasis versus pneumonia. Cardiomegaly. Electronically signed by: Constantino Rivero MD 06/03/2025 10:54 AM EDT RP Chest CT 06/04/25 18:17 IMPRESSION: Cardiomegaly. Probable hepatosplenomegaly with mediastinal and axillary lymphadenopathy, bilateral small to moderate volume pleural effusions and multifocal pneumonia.. Concerning for an lymphoproliferative disorder versus granulomatous disease process versus autoimmune disorder among other etiologies. Fleischner guidelines were followed. Electronically signed by: Quintin Antonio MD 06/05/2025 07:09 AM EDT RP Discharge Plan Discharge Anticipated Discharge Date/Time: 06/07/25 12:20 Patient Disposition: Home, Self-Care Discharge Diagnosis: congestive heart failure/cardiomyopathy pneumonia Referrals: Physician,None [Primary Care Provider, Medical] - 1 Week Morgan Tavares MD [Physician, Cardiology] - 2 Weeks Discharge Medications: New furosemide 40 mg Tablet 40 mg PO BID@0900,1800 Qty: 60 0RF Protocol: Hold for SBP< HOLD for SBP < : 90 carvedilol 3.125 mg Tablet 3.125 mg PO BID Qty: 60 0RF Protocol: Hold for SBP/HR < HOLD for SBP < : 90 HOLD for HR < : 60 sacubitril-valsartan [Entresto] 24-26 mg tablet 1 tab PO BID Qty: 60 0RF cefuroxime axetil 500 mg tablet 500 mg PO BID Qty: 6 0RF azithromycin 250 mg tablet 250 mg PO DAILY 3 Days Qty: 3 0RF Continued (DME) blood pressure monitor Kit See Rx Instructions .Route Qty: 1 0RF Rx Instructions: As directed spironolactone 25 mg tablet 25 mg PO DAILY Qty: 30 3RF Protocol: Hold for SBP< HOLD for SBP < : 90 Jardiance 10 mg tablet 10 mg PO DAILY Qty: 30 3RF Discontinued furosemide 40 mg tablet 40 mg PO DAILY Qty: 90 3RF carvedilol 12.5 mg tablet 12.5 mg PO BID sacubitril-valsartan 49-51 mg tablet 1 tab PO BID Qty: 90 3RF Discharge Orders: Discharge Order (Routine); Ordered 06/07/25 Ordered By: Quinton Cheung Diet: Low salt diet Activity on Discharge: As tolerated Stand Alone Forms: Patient Portal Discharge page Print Language: Azeri Care Plan Goals: cardiac and pulmonary health Health Concerns: congestive heart failure/cardiomyopathy pneumonia Plan of Treatment: Low-sodium diet: less than 2000 mg of sodium daily. Weigh yourself daily and call your doctor if your weight goes up by more than 3 lb/day or 5 lb/week. Furosemide Carvedilol 3.125 mg twice daily Entresto Spironolactone 25 mg once daily Jardiance 10 mg once daily Follow up with Cardiology in 2 weeks. Antibiotics for pneumonia: cefuroxime 500 mg twice daily PLUS azithromycin 250 mg once daily for 3 more days Establish primary care as soon as possible. Repeat CT of the chest in 1 month to follow up lung infiltrates and enlarged lymph nodes. Avoid drug use/abuse. Assessment: See Discharge Summary.
[2025-06-10 00:14] LABS: Strep Pneumo Ag urine Not Detected (Not Detected)
== END 2025-06-07 12:27 | disposition home or self-care (01) | DRG 291 ==
LOC: HO.ED 12:15 → HO.EDOVER 13:16 → HO.IMC 13:41
PROVIDERS: Internal Medicine; Student in an Organized Health Care Education/Training Program; Admitting Provider Nurse Practitioner Acute Care; Emergency Provider Emergency Medicine; Visit Provider Family Medicine
DX: I50.23 Acute on chronic systolic (congestive) heart failure (principal); J18.9 Pneumonia, unspecified organism; I42.8 Other cardiomyopathies; J91.8 Pleural effusion in other conditions classified elsewhere; F10.11 Alcohol abuse, in remission; T44.7X6A Underdosing of beta-adrenoreceptor antagonists, initial encounter; T50.0X6A Underdosing of mineralocorticoids and their antagonists, initial encounter; Z91.128 Patient's intentional underdosing of medication regimen for other reason; F14.11 Cocaine abuse, in remission; Z55.6 Problems related to health literacy; Z87.891 Personal history of nicotine dependence; Z79.899 Other long term (current) drug therapy
CPT/HCPCS: 36415; 71045; 71250; 80048; 80053; 80307; 83735; 83880; 84145; 84484; 85025; 85027; 86704; 86706; 86803; 87340; 87389; 87449; 87640; 87641; 87651; 87899; 93005; 93306; 99285; J0456; J0696; J1938; Q9957

== ENCOUNTER → 2025-06-03 10:33 | Outpatient (BNV) | payer OTHER, SELFPAY | PROVIDERS: Emergency Provider Emergency Medicine; Visit Provider Radiology Diagnostic Radiology | DX: I51.7 Cardiomegaly (principal) | CPT/HCPCS: 71045 ==

== ENCOUNTER 2025-06-03 13:06 | Outpatient (BNV) | payer OTHER, SELFPAY | END 2025-06-04 18:17 | PROVIDERS: Admitting Provider Nurse Practitioner Acute Care; Emergency Provider Emergency Medicine; Visit Provider Radiology Diagnostic Radiology | DX: I51.7 Cardiomegaly (principal); J90 Pleural effusion, not elsewhere classified | CPT/HCPCS: 71250 ==

== ENCOUNTER 2025-06-03 13:06 | Outpatient (BNV) | payer OTHER, SELFPAY | END 2025-06-03 16:00 | PROVIDERS: Admitting Provider Nurse Practitioner Acute Care; Emergency Provider Emergency Medicine; Visit Provider Internal Medicine | DX: R00.0 Tachycardia, unspecified (principal); I51.7 Cardiomegaly | CPT/HCPCS: 93010 ==

== ENCOUNTER → 2025-06-03 13:06 | Outpatient (BNV) | payer OTHER, SELFPAY | PROVIDERS: Admitting Provider Nurse Practitioner Acute Care; Emergency Provider Emergency Medicine; Visit Provider Internal Medicine | DX: I42.8 Other cardiomyopathies (principal); I50.43 Acute on chronic combined systolic (congestive) and diastolic (congestive) heart failure | CPT/HCPCS: 99223; 99233 ==

== ENCOUNTER → 2025-06-03 13:06 | Outpatient (BNV) | payer OTHER, SELFPAY | PROVIDERS: Admitting Provider Nurse Practitioner Acute Care; Emergency Provider Emergency Medicine; Visit Provider Nurse Practitioner Acute Care | DX: I42.8 Other cardiomyopathies (principal); I50.43 Acute on chronic combined systolic (congestive) and diastolic (congestive) heart failure | CPT/HCPCS: 99223; 99233 ==

== ENCOUNTER 2025-06-18 13:11 | Outpatient (AMB) | payer OTHER, SELFPAY ==
[2025-06-18 13:14] VITALS: BP 128/72; PULSE 113; BMI 30.6
--- NOTE | 2025-06-18 13:14 | A.OFFVIS_ITS ---
Vital Signs 06/18/25 13:14 Height 6 ft 2 in Weight 238 lb 1.588 oz BMI 30.6 BP 128/72 Blood Pressure Location Lt brachial Position Sitting Pulse 113 H Pulse Source Monitor Intake Visit Reasons: c: Discharge f/u Rs Field Contact Person Required: No Accompanied by: Self / Same As Patient Allergies No Known Allergies Allergy (Verified 06/18/25 13:16) Medication List - Last Reconciled 06/18/25 by Adriano Kincaid NP blood pressure monitor As directed carvedilol 3.125 mg See Protocol PO BID empagliflozin (Jardiance) 10 mg PO DAILY furosemide 40 mg See Protocol PO BID@0900,1800 HPI Comments Details: This is a 34-year-old male patient coming in for a follow-up visit status post hospital discharge. Patient with history of nonischemic cardiomyopathy previously with an ejection fraction between 10-15% now worsened at 8%. Patient also with a history of substance abuse with cocaine, steroids, alcohol, and tobacco. Patient recently a was in the hospital for shortness of breath. Patient states that 2 weeks prior to this, patient had stopped drinking alcohol and therefore stopped taking his medications. Patient was diuresed and restarted on as neurohormonal modulating regimen however, patient is only taking carvedilol Lasix and Entresto. Patient states he is not taking Jardiance and carvedilol as he thought they were discontinued at the hospital. Patient is otherwise denying any cardiac symptoms of exertional chest pain, shortness of breath, palpitations, dizziness, orthopnea, PND, leg edema, presyncope or syncope. Patient notes that he has quit drinking alcohol, cocaine use as well as steroid use. Unfortunately, patient is still smoking cigarettes and states that he is trying to cut back. [facility] Medical History Heart failure with reduced ejection fraction Cardiomyopathy Cardiomegaly Cocaine abuse Smoker Asthma Surgical History History of hand surgery Family History Paternal Grandfather Heart attack Father High blood pressure COPD (chronic obstructive pulmonary disease) Mother Heart attack Maternal Grandfather Heart attack Social History Household Members: None Housing: House Do you presently have visiting nurse or other home services: No Alcohol intake: current Patient Tobacco Use Status: Former Tobacco user Tobacco use type: Cigarette Cigarette Packs Per Day: 0.5 Cigarettes Per Day: 10.0 e-Cigarette/Vaping Use: Currently Using Second Hand Smoke Exposure: No Substance Use Type: Crack/Cocaine and Marijuana service: No Review of Systems Const Denies daytime sleepiness, Denies difficulty sleeping, Denies snoring, Denies stops breathing during sleep and Denies weakness Card Denies chest pain, Denies rapid heart rate, Denies irregular heart rhythm, Denies claudication, Denies leg edema, Denies lightheadedness, Denies palpitations, Denies dyspnea, Denies dyspnea on exertion, Denies orthopnea, Denies paroxysmal nocturnal dyspnea and Denies slow heart rate Resp Denies cough, Denies dyspnea, Denies dyspnea on exertion and Denies snoring GI Reports no additional complaints, Denies hematochezia, Denies change in stool character and Denies dyspepsia Musc Denies abnormal gait, Denies muscle weakness and Denies numbness Neuro Denies abnormal gait, Denies numbness and Denies weakness Endo Denies palpitations Physical Exam Vital Signs: Last Vital Signs Pulse 113 H 06/18/25 13:14 BP 128/72 06/18/25 13:14 BMI result Body Mass Index 30.6 Const General: cooperative, healthy appearing, comfortable and no acute distress Orientation/consciousness: patient oriented x3 HEENT Head: Yes normal to inspection Neck Neck: Yes normal visual inspection, Yes trachea midline and Yes supple Chest Chest palpation & inspection: normal inspection of the chest Resp Effort & Inspection: normal respiratory effort Auscultation: clear to auscultation bilaterally, no crackles, no rales, no rhonchi and no wheezes Cardio Jugular venous distension: no JVD Palpation: normal PMI Rate: tachycardic Rhythm: regular rhythm Heart sounds: S1 normal heart sound present, S2 normal heart sound present, no click, Gallop heart sound present S3 gallop, no murmurs and no rubs Peripheral pulses: Peripheral pulses 2+ throughout GI Inspection: Yes normal to inspection Palpation (GI): Soft to palpation Auscultation: normal bowel sounds Skin General skin exam: no rashes or lesions noted Neuro General: patient oriented x3 Extrem General: Yes normal to inspection, No no pedal edema and No calf tenderness Psych Appearance: grossly normal Mental Status: mental status grossly normal Speech and movement: Normal speech and movement present Office Procedures EKG Details: EKG today shows sinus tachycardia, rate 113 beats per minute, LVH with repolarization abnormality (Sokolow-niño, romhilt- fair), nonspecific STT wave, normal VT, [place]. [id number], Complete Assessment & Plan Assessment & Plan (1) Nonischemic cardiomyopathy: Code(s): I42.8 - Other cardiomyopathies Category: Medical Plan: 03/03/2025-patient underwent cardiac catheterization with Dr. Goff at [facility] that showed no significant coronary artery disease. 06/03/2025-echo study showed severely decreased LV systolic function with an ejection fraction at 8% compared to 10-15% back in December of 2024. Patient was recently in the hospital for shortness of breath where patient stated that 2 weeks before this upon quitting alcohol, patient stopped taking his medications as well. When he started to get a little short of breath, patient wanted to go back on his medications however was not sure how to take them and therefore went to the hospital. There, patient was treated for pneumonia and diuresed and was restarted on his neurohormonal modulating drugs but has not been taking them as prescribed. We will restart the Jardiance and spironolactone. We will increase carvedilol and Entresto. Benefits and need for compliance of neurohormonal modulating drug therapy discussed in detail with the patient. Patient verbalizes understanding. We will check a kidney function in 4 weeks. We will also refer patient out to [facility] advanced heart failure Clinic for further management. Once patient is compliant on the medications, we will plan to refer patient out to EP for ICD evaluation. Clinically euvolemic and stable. Advised on low-salt diet, daily weight monitoring, and med compliance. We went over the medications 1 at a time and printed out the list for patient to keep. Advised to call the office with any confusions with the medications. (2) Cardiomegaly: Code(s): I51.7 - Cardiomegaly Category: Medical Plan: As above. (3) Hypertension: Code(s): I10 - Essential (primary) hypertension Category: Medical Plan: Blood pressure is within normal limits. Advised monitoring blood pressures with a goal less than 130/80. (4) Substance abuse: Code(s): F19.10 - Other psychoactive substance abuse, uncomplicated Category: Medical Plan: Patient states he has quit drinking alcohol, using cocaine, and steroids. Toxicology recently was negative for cocaine. Patient was commended for this. However patient continues to smoke half a pack of cigarettes daily. Patient is trying to cut back down and is also using gum as needed. Advised on complete smoking cessation. (5) Hospital discharge follow-up: Code(s): Z09 - Encounter for follow-up examination after completed treatment for conditions other than malignant neoplasm Category: Medical Plan: As above. Advised heart healthy diet, medication compliance, smoking cessation, and avoiding cocaine, alcohol, and steroids use. We will follow up with the patient in 1 month. In the interim, patient will call the office with any concerns or change in symptoms. This note was generated using voice recognition software. While every effort has been made to ensure accuracy and proper agricultural equipment test engineer, there may be occasional errors that could affect the content or meaning of the described symptoms. Orders: Orders Basic Metabolic Panel Today I42.8 - Other cardiomyopathies AMB EKG-In Office Today I42.8 - Other cardiomyopathies Referrals Cardiology Referral I42.8 - Other cardiomyopathies Medications: New spironolactone 25 mg PO DAILY 60 tabs 3RF carvedilol must administer with a meal/food 12.5 mg PO BID 60 tabs 5RF sacubitril-valsartan 49-51 mg 1 tab PO BID 60 tabs 5RF Refilled empagliflozin (Jardiance) 10 mg PO DAILY 30 tabs 3RF Discontinued carvedilol Discontinued Reason: Doctor's Order 3.125 mg See Protocol PO BID 60 tabs 0RF Coding Level of Care Code Est Pt Level 4 (52482) Complex EM visit Add On G2211 Diagnoses Nonischemic cardiomyopathy I42.8 Cardiomegaly I51.7 Hypertension I10 Substance abuse F19.10 Hospital discharge follow-up Z09 CPT Codes EKG - CPT: 71647-[id number], Complete ([id number]) Time Spent (min) 36 Comment Time spent in reviewing the chart, test results, assessment, counseling and documentation.
--- OUTSIDE RECORDS SUMMARY | 2025-06-18 16:33 | XMS_ITS | Clinical Summary ---
Author Organization [employer] Address [address] [place] [address] [address] [place] [address] Care Team Providers Care Mate Chief Name Role Phone Unavailable Primary Care Provider [...] Planning (PISQ) 12/13/2003 HPV Vaccines (1 - Male 3-dos e series) 12/13/2003 DTaP/Tdap/Td Vaccines (1 - Tdap) 12/13/2007 Hepatitis B Vaccines (1 of 3 - 19+ 3-dose series) 12/13/2007 COVID-19 Vaccine (1 - 2024-2 6 season) 2025 Influenza Vaccine (#1) 2025 Zoster [...] HEPATITIS C ANTIBODY NON-REACT ASTER NON-REACT ASTER [facility] INDEX 0.03 <1.00 [facility] Comment: HCV antibody was non-reactive. There is no laboratory evidence of HCV infection. In most cases, no further action is required. However, if recent HCV exposure is suspected, a test for HCV RNA (test code 14918) is suggested. For additional information please refer to http://Watsin.Nextly/faq/FCD87e6 (This link is being provided for informational/ educational purposes only.) HEPATITIS C ANTIBODY NON-REACT ASTER NON-REACT ASTER [facility] INDEX 0.03 <1.00 [facility] Comment: HCV antibody was non-reactive. There is no laboratory evidence of HCV infection. In most cases, no further action is required. However, if recent HCV exposure is suspected, a test for HCV RNA (test code 06862) is suggested. For additional information please refer to http://WatchDox/faq/UCL39f9 (This link is being provided for informational/ educational purposes only.) HEPATITIS C ANTIBODY NON-REACT ASTER NON-REACT ASTER [facility] INDEX 0.03 <1.00 [facility] Comment: HCV antibody was non-reactive. There is no laboratory evidence of HCV infection. In most cases, no further action is required. However, if recent HCV exposure is suspected, a test for HCV RNA (test code 86312) is suggested. For additional information please refer to http://WatchDox/faq/LAY22o8 (This link is being provided for informational/ educational purposes only.) HEPATITIS C ANTIBODY NON-REACT ASTER NON-REACT ASTER [facility] INDEX 0.03 <1.00 [facility] Comment: HCV antibody was non-reactive. There is no laboratory evidence of HCV infection. In most cases, no further action is required. However, if recent HCV exposure is suspected, a test for HCV RNA (test code 45145) is suggested. For additional information please refer to http://Watsin.Nextly/faq/FJQ84u9 (This link is being provided for informational/ educational purposes only.) HEPATITIS C ANTIBODY NON-REACT ASTER NON-REACT ASTER [facility] INDEX 0.03 <1.00 [facility] Comment: HCV antibody was non-reactive. There is no laboratory evidence of HCV infection. In most cases, no further action is required. However, if recent HCV exposure is suspected, a test for HCV RNA (test code 04089) is suggested. For additional information please refer to http://Watsin.Nextly/faq/XZF51a7 (This link is being provided for informational/ educational purposes only.) 03/03/2020 11:2 2 AM EDT Adalberto Wright MD HISTORICAL/NON ORDERABLE LABS Final Result [facility] [address] [place] [address], * HIV 1/2 ANTIGEN/ANTIBODY,FOURTH GENERATION W/RFL (03/03/2020 11:22 AM EDT) HIV-1/2 ANTIGEN AND ANTIBODIES, 4TH GENERATION W/ REFLEX NON-REACT ASTER NON-REACT ASTER [facility] Comment: HIV-1 antigen and HIV-1/HIV-2 [...] purpose. For additional information please refer to http://Watsin.Novawise.IngBoo/faq/XBE118 (This link is being provided for informational/ educational purposes only.) The performance of this assay has not been clinically validated in patients less than 2 years old. HIV-1/2 ANTIGEN AND ANTIBODIES, 4TH GENERATION W/ REFLEX NON-REACT ASTER NON-REACT ASTER [facility] Comment: HIV-1 antigen and HIV-1/HIV-2 [...] purpose. For additional information please refer to http://Watsin.Nextly/faq/WUJ457 (This link is being provided for informational/ [...] purpose. For additional information please refer to http://WatchDox/faq/ZYR899 (This link is being provided for informational/ [...] purpose. For additional information please refer to http://[email or web address].Novawise.IngBoo/faq/WIM166 (This link is being provided for informational/ educational purposes only.) The performance of this assay has not been clinically validated in patients less than 2 years old. 03/03/2020 11:2 2 AM EDT us Adalberto Wright MD LAB BLOOD ORDERABLES Final Res ult [facility] [address] from Last 3 Months or Most Recently Relevant to Health Maintenance Insurance [facility] < [address] [id number]
== END 2025-06-18 13:44 | disposition home or self-care (01) ==
LOC: HO.HCS 13:12
DX: I42.8 Other cardiomyopathies (principal); I51.7 Cardiomegaly; I10 Essential (primary) hypertension; F19.10 Other psychoactive substance abuse, uncomplicated; Z09 Encounter for follow-up examination after completed treatment for conditions other than malignant neoplasm
CPT/HCPCS: 93010; 99214; G2211

== ENCOUNTER → 2025-06-18 13:11 | Outpatient (BNVA) | payer OTHER, SELFPAY | DX: Z09 Encounter for follow-up examination after completed treatment for conditions other than malignant neoplasm (principal); I42.8 Other cardiomyopathies; I51.7 Cardiomegaly; I50.20 Unspecified systolic (congestive) heart failure; F14.20 Cocaine dependence, uncomplicated; F10.20 Alcohol dependence, uncomplicated; F55.3 Abuse of steroids or hormones; F17.210 Nicotine dependence, cigarettes, uncomplicated | CPT/HCPCS: 93005; 99212 ==

== ENCOUNTER 2025-07-23 15:05 | Outpatient (AMB) | payer OTHER, SELFPAY ==
--- NOTE | 2025-07-23 15:09 | A.OFFVIS_ITS ---
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 Patient with history of nonischemic cardiomyopathy with an EF at 8%, history of substance abuse with cocaine steroids alcohol, and current smoker. Since his last visit, we referred patient to [facility] for heart failure management and ICD evaluation. Patient has seen them and is planning to undergo cardiac MRI and they increased his carvedilol to 25 b.i.d.. In the past, patient had a lot of problems with med compliance however today, patient is reporting compliance with all his medications and is denying any use of alcohol, cocaine, steroids, or testosterone. Unfortunately, patient continues to smoke and is planning to meet with the smoking cessation clinic. Patient is reporting feeling well without symptoms of exertional chest pain, shortness of breath, palpitations, dizziness, orthopnea, PND, leg edema, presyncope or syncope. [facility] Medical History Heart failure with reduced ejection fraction Cardiomyopathy Cardiomegaly Cocaine abuse Smoker Asthma Surgical History History of hand surgery Family History Paternal Grandfather Heart attack Father High blood pressure COPD (chronic obstructive pulmonary disease) Mother Heart attack Maternal Grandfather Heart attack Social History Household Members: None Housing: House Do you presently have visiting nurse or other home services: No Alcohol intake: current Patient Tobacco Use Status: Former Tobacco user Tobacco use type: Cigarette Cigarette Packs Per Day: 0.5 Cigarettes Per Day: 10.0 e-Cigarette/Vaping Use: Currently Using Second Hand Smoke Exposure: No Substance Use Type: Crack/Cocaine and Marijuana service: No Review of Systems Const Denies daytime sleepiness, Denies difficulty sleeping, Denies snoring, Denies stops breathing during sleep and Denies weakness Card Denies chest pain, Denies rapid heart rate, Denies irregular heart rhythm, Denies claudication, Denies leg edema, Denies lightheadedness, Denies palpitations, Denies dyspnea, Denies dyspnea on exertion, Denies orthopnea, Denies paroxysmal nocturnal dyspnea and Denies slow heart rate Resp Denies cough, Denies dyspnea, Denies dyspnea on exertion and Denies snoring GI Reports no additional complaints, Denies hematochezia, Denies change in stool character and Denies dyspepsia Musc Denies abnormal gait, Denies muscle weakness and Denies numbness Neuro Denies abnormal gait, Denies numbness and Denies weakness Endo Denies palpitations Physical Exam Vital Signs: Last Vital Signs Pulse 106 H 07/23/25 15:10 BP 120/70 07/23/25 15:10 BMI result Body Mass Index 30.1 Const General: cooperative, healthy appearing, comfortable and no acute distress Orientation/consciousness: patient oriented x3 HEENT Head: Yes normal to inspection Neck Neck: Yes normal visual inspection, Yes trachea midline and Yes supple Chest Chest palpation & inspection: normal inspection of the chest Resp Effort & Inspection: normal respiratory effort Auscultation: clear to auscultation bilaterally, no crackles, no rales, no rhonchi and no wheezes Cardio Jugular venous distension: no JVD Palpation: normal PMI Rate: tachycardic Rhythm: abnormal rhythm Heart sounds: S1 normal heart sound present, S2 normal heart sound present, no click, Gallop heart sound present S3 gallop, no murmurs and no rubs Peripheral pulses: Peripheral pulses 2+ throughout GI Inspection: Yes normal to inspection Palpation (GI): Soft to palpation Auscultation: normal bowel sounds Skin General skin exam: no rashes or lesions noted Neuro General: patient oriented x3 Extrem General: Yes normal to inspection, No no pedal edema and No calf tenderness Psych Appearance: grossly normal Mental Status: mental status grossly normal Speech and movement: Normal speech and movement present Office Procedures EKG Details: EKG today showed questionable sinus tachycardia with a first-degree AV block versus ectopic atrial tachycardia, frequent PVCs, nonspecific STT wave, nonspecific intraventricular block, minimal voltage criteria for LVH, [place]. [id number], Complete Assessment & Plan Assessment & Plan (1) Nonischemic cardiomyopathy: Code(s): I42.8 - Other cardiomyopathies Category: Medical Plan: 03/03/2025-patient underwent cardiac catheterization with Dr. Goff at [facility] that showed no significant coronary artery disease. 06/03/2025-echo study showed severely decreased LV systolic function with an ejection fraction at 8% compared to 10-15% back in December of 2024. Patient has seen [facility] for ICD evaluation and is requesting a cardiac MRI, pending at this time. They had increased carvedilol to 25 b.i.d.. Patient is taking this currently. EKG today showed sinus tachycardia versus atrial tachycardia and therefore we will add digoxin. We will plan to get a dig level in 1 week. Emphasized on holding digoxin if heart rate less than 60. Patient verbalizes understanding of the plan. Continue carvedilol, Jardiance, Entresto, and spironolactone. Clinically stable and euvolemic. Advised on low-salt diet, daily weight monitoring, and med compliance. (2) Cardiomegaly: Code(s): I51.7 - Cardiomegaly Category: Medical Plan: As above. (3) Hypertension: Code(s): I10 - Essential (primary) hypertension Category: Medical Plan: Blood pressure is within normal limits. Advised monitoring blood pressures with a goal less than 130/80. Gave a prescription for a blood pressure monitoring kit. (4) Substance abuse: Code(s): F19.10 - Other psychoactive substance abuse, uncomplicated Category: Medical Plan: Patient states he has quit drinking alcohol, using cocaine, and steroids. Toxicology recently was also negative for cocaine. Patient was commended for this. However patient continues to smoke and is planning to meet with the clinic for smoking cessation. Emphasized on the need for complete smoking cessation. Advised on heart healthy diet, med compliance, and avoiding stimulants. Follow up with EP following cardiac MRI. We will plan to follow up in 2-3 months. In the interim, patient will call the office with any concerns or change in symptoms. This note was generated using voice recognition software. While every effort has been made to ensure accuracy and proper regrader, there may be occasional errors that could affect the content or meaning of the described symptoms. Orders: Orders Digoxin Today I42.8 - Other cardiomyopathies AMB EKG-In Office Today I42.8 - Other cardiomyopathies Medications: New carvedilol must administer with a meal/food 25 mg PO BID 60 tabs 5RF digoxin 125 mcg PO DAILY 90 tabs 3RF Refilled blood pressure monitor As directed 1 ea 0RF I10 - Essential (primary) hypertension Discontinued carvedilol must administer with a meal/food Discontinued Reason: Doctor's Order 12.5 mg PO BID 60 tabs 5RF Coding Level of Care Code Est Pt Level 4 (19918) Add On Problem Visit Only Diagnoses Nonischemic cardiomyopathy I42.8 Cardiomegaly I51.7 Hypertension I10 Substance abuse F19.10 CPT Codes EKG - CPT: 27517-Atdyvnnxcrebteozn, Complete ([id number]) Time Spent (min) 33 Comment Time spent in reviewing the chart, test results, assessment, counseling and documentation.
[2025-07-23 15:10] VITALS: BP 120/70; PULSE 106; BMI 30.1
--- OUTSIDE RECORDS SUMMARY | 2025-07-23 19:09 | XMS_ITS | Clinical Summary ---
Author Organization [employer] Address [address] [place] [address] [address] [place] [address] Care Team Providers Care Biomedical Electronics Technician Name Role Phone Unavailable Primary Care [...] [facility] Comment: HCV antibody was non-reactive. There is no laboratory evidence of HCV infection. In most cases, no further action is required. However, if recent HCV exposure is suspected, a test for HCV RNA (test code 99265) is suggested. For additional information please refer to [email or web address]/faq/GRC58u8 (This link is being provided for informational/ educational purposes only.) HEPATITIS C ANTIBODY NON-REACT ASTER NON-REACT [facility]ER [facility] INDEX 0.03 <1.00 [facility] Comment: HCV antibody was non-reactive. There is no laboratory evidence of HCV infection. In most cases, no further action is required. However, if recent HCV exposure is suspected, a test for HCV RNA (test code 07712) is suggested. For additional information please refer to http://[employer]/faq/VYK34i9 (This link is being provided for informational/ educational purposes only.) HEPATITIS C ANTIBODY NON-REACT ASTER NON-REACT ASTER [facility] INDEX 0.03 <1.00 [facility] Comment: HCV antibody was non-reactive. There is no laboratory evidence of HCV infection. In most cases, no further action is required. However, if recent HCV exposure is suspected, a test for HCV RNA (test code 45721) is suggested. For additional information please refer to http://[employer]/faq/ZBY52n8 (This link is being provided for informational/ educational purposes only.) HEPATITIS C ANTIBODY NON-REACT ASTER NON-REACT [facility] INDEX 0.03 <1.00 [facility] Comment: HCV antibody was non-reactive. There is no laboratory evidence of HCV infection. In most cases, no further action is required. However, if recent HCV exposure is suspected, a test for HCV RNA (test code 56305) is suggested. For additional information please refer to [email or web address]/faq/SHX84k2 (This link is being provided for informational/ educational purposes only.) HEPATITIS C ANTIBODY NON-REACT ASTER NON-REACT ASTER [facility] INDEX 0.03 <1.00 [facility] Comment: HCV antibody was non-reactive. There is no laboratory evidence of HCV infection. In most cases, no further action is required. However, if recent HCV exposure is suspected, a test for HCV RNA (test code 48780) is suggested. For additional information please refer to [email or web address]/faq/DXS17v0 (This link is being provided for informational/ educational purposes only.) 03/03/2020 11:2 2 AM EDT Adalberto Wright MD HISTORICAL/NON ORDERABLE LABS Final Result [facility] [address] [place] [address], * HIV 1/2 ANTIGEN/ANTIBODY,FOURTH GENERATION W/RFL (03/03/2020 11:22 AM EDT) HIV-1/2 ANTIGEN AND ANTIBODIES, 4TH GENERATION W/ REFLEX NON-REACT ASTER NON-REACT ASTER [facility] Comment: HIV-1 antigen and HIV-1/HIV-2 [...] purpose. For additional information please refer to [email or web address]/faq/LUW698 (This link is being provided for informational/ educational purposes only.) The performance of this assay has not been clinically validated in patients less than 2 years old. HIV-1/2 ANTIGEN AND ANTIBODIES, 4TH GENERATION W/ REFLEX NON-REACT ASTER NON-REACT ASTER [facility] Comment: HIV-1 antigen and HIV-1/HIV-2 [...] purpose. For additional information please refer to [email or web address]/faq/AAJ747 (This link is being provided for informational/ [...] purpose. For additional information please refer to http://[employer]/faq/LGT859 (This link is being provided for informational/ [...] purpose. For additional information please refer to [email or web address]/faq/CPW388 (This link is being provided for informational/ educational purposes only.) The performance of this assay has not been clinically validated in patients less than 2 years old. 03/03/2020 11:2 2 AM EDT us Adalberto Wright MD LAB BLOOD ORDERABLES Final Res ult [facility] [address] from Last 3 Months or Most Recently Relevant to Health Maintenance Insurance [facility] ONE CARE < [address] [place] [place] [id number]
== END 2025-07-23 15:36 | disposition home or self-care (01) ==
LOC: HO.HCS 15:06
DX: I42.8 Other cardiomyopathies (principal); I51.7 Cardiomegaly; I10 Essential (primary) hypertension; F19.10 Other psychoactive substance abuse, uncomplicated
CPT/HCPCS: 93010; 99214; G2211

== ENCOUNTER → 2025-07-23 15:05 | Outpatient (BNVA) | payer OTHER, SELFPAY | DX: I42.8 Other cardiomyopathies (principal); I10 Essential (primary) hypertension; I51.7 Cardiomegaly; I49.3 Ventricular premature depolarization; F19.10 Other psychoactive substance abuse, uncomplicated | CPT/HCPCS: 93005; 99212 ==